=== PATIENT | male | born 1945 | race Caucasian/White ===

== ENCOUNTER 2016-10-03 16:37 | Inpatient (IN) | payer OTHER ==
[2016-10-03] MEDS ORDERED: NS 1,000 ML IV ONE (17:18)
[2016-10-03] MEDS ORDERED: ONDANSETRON 4 MG/2 ML VIAL IVP ONE (17:18)
--- NOTE | 2016-10-03 17:32 | CPEKG ---
Heart Rate: 58 RR Interval: 1034 P-R Interval: 144 QRSD Interval: 86 QT Interval: 428 QTC Interval: 421 P Black[place]: 69 QRS [place]: 2 T Wave [place]: 31 EKG Severity - NORMAL ECG - EKG Impression: SINUS RHYTHM Electronically Signed By: Alireza Stephens 03-Oct-2016 22:18:22
--- NOTE | 2016-10-03 17:33 | EDPHY ---
General Narrative: CHIEF COMPLAINT: Abdominal pain, diarrhea HISTORY OF PRESENT ILLNESS: patient has had ongoing abdominal pain that has worsened over the past 3 days. It is in the upper quadrants and epigastrium. It is moderate to severe. Intolerable today, thus he is here. Associated with several bouts of diarrhea daily. He has been evaluated for this including a negative C difficile study less than 10 days ago. He has had dry heaving today but no bloody stools or emesis. No fever or chills. No chest pain or shortness of breath. The pain is worse with movement, Valsalva or palpation. It radiates to the back. minimal improvement with [id number] anti- inflammatories. History significant for gastric adenocarcinoma status post partial gastrectomy so years ago. 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 He is also on chemotherapy until July. He has been very weak over the past few months and not gain any weight as well. 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 Frail Head: normocephalic, atraumatic Eyes: Pupils equal and round, no conjunctival pallor or injection ENT, Mouth: Mucous membranes moist. Uvula midline. No erythema or edema. Neck: Normal inspection, supple, non-tender Respiratory: Lungs are clear to auscultation . No wheezing, rhonchi crackles Cardiovascular: Left-sided chest port palpable.Regular rate and rhythm. No murmur. Pulses intact distally. Gastrointestinal: Abdomen is soft . Moderately tender in both upper quadrants. No guarding. No tympany. No rigidity. No CVA tenderness. Back: non-tender, no bony abnormalities Neurological: A&O, nonfocal, normal gait Skin: Warm and dry, no rash Extremities: Nontender, no pedal edema Psychiatric: Mood and affect normal DIFFERENTIAL DIAGNOSES: Including but not limited to Gastritis, peptic ulcer, perforated duodenal ulcer, enteritis, colitis, pancreatitis, pseudomembranous colitis MDM: 5:40pm Bilateral upper quadrant abdominal pain. Patient has a very extensive and complicated history including gastroesophageal carcinoma and adenocarcinoma of the small intestine. He is status post partial gastrectomy and partial small bowel obstruction. He has normal vital signs but moderately tender in this area. Laboratory studies are pending at this time. We discussed CT scan but I am being cautious with this given his history and frequencies CT scans that he has had. They are comfortable with this plan at this time. 7:05 p.m. laboratory studies are within acceptable limits for this patient. His abnormal liver function tests are actually improved from previous. He also has known fatty liver disease. Abdominal exam still remains moderately painful in the upper abdomen. This pain is improved with pain medication here. After lengthy discussion we have decided together to obtain a CT scan of the abdomen and pelvis given his complex history. I do feel this is reasonable given his severity of pain and is complex abdominal history. CT scan has been ordered and he is in no acute distress 8:45 p.m. notified by radiologist Dr. Javed of the CT scan finding. This is consistent with small-bowel obstruction. There is an area of change in the right side of the abdomen in the previous surgical region. I discussed this with the patient. His former surgeon is Dr. Sofya Mora is no longer with the practice. I will contact [address] Welch for consultation. Plan for admission with hospitalist versus surgeon at this time. 9:10 p.m. I have discussed the case with the hospitalist and he will admit the patient to his service. We are still attempting to contact General surgery for consultation. 9:45 p.m. I have discussed the case with general surgeon Dr. Pickering. He recommends that we keep the patient NPO, provide IV fluid resuscitation, refrain from giving Lovenox and he will provide consultation in the morning. Should the scenario change, hospitalist can consult him overnight for patient to be seen if needed. I discussed this with the patient he is comfortable with this plan. He still tolerating the pain and not actively vomiting. I have not ordered an NG tube and Dr. Pickering is comfortable with this thus far. EKG interpreted by: Dr. Stephens rate is 58 beats per minute. Normal sinus rhythm. No ST depression or elevation. No T-wave inversion of the AVR. No ectopy conduction delay. Interpretation: Normal sinus rhythm ED Precautions: Worsening pain. Fever. Bloody stools. Bloody emesis. Constipation or diarrhea. SUPERVISION: This patient was independently evaluated without the aide of supervising physician. Case discussed with Dr. Kat - History Smoking Status: Never smoked - Objective Vital Signs: Initial Vital Signs Temperature (C) 99.0 F 10/03/16 16:47 Heart Rate 62 10/03/16 16:47 Respiratory Rate 16 10/03/16 16:47 Blood Pressure 135/85 H 10/03/16 16:47 O2 Sat (%) 96 10/03/16 16:47 O2 Delivery Mode Nasal Cannula O2 (L/minute) 2 Allergies/Adverse Reactions: gluten Allergy (Verified 04/28/16 16:50) Penicillins Allergy (Verified 04/28/16 16:50) wheat Allergy (Verified 04/28/16 16:50) Home Medications: Medication Instructions Recorded Aspirin [Aspirin 81mg (*)] 81 mg PO DAILY 09/19/15 Famotidine [Pepcid 20 MG (*)] 20 mg PO BID 09/19/15 Multivitamins [Multivitamin (*)] 1 each PO DAILY 09/19/15 [place]-3 Fatty Acids [Fish Oil 1000 1,000 mg PO DAILY 09/19/15 mg (*)] Simvastatin 10 mg PO DAILY18 09/19/15 Herbals/Supplements -Info Only 1 ea PO DAILY 12/11/15 Acetaminophen [Tylenol 325mg (*)] 650 mg PO Q4 PRN #30 tab 12/24/15 Loperamide HCl [Imodium 2 mg (*)] 2 mg PO TID PRN 10/03/16 Laboratory Results: Laboratory Results 10/03/16 18:00 10/03/16 18:00 10/03/16 10/03/16 10/03/16 18:04 18:00 18:00 WBC RBC Hgb POC Hgb 14.3 gm/dL L gm/dL (14.5-17.3) Hct POC Hct 42 % L % (42.8-50.6) MCV MCH MCHC RDW Plt Count MPV Neut % (Auto) Lymph % (Auto) [place] % (Auto) Eos % (Auto) Baso % (Auto) Nucleat RBC Rel Count Absolute Neuts (auto) Absolute Lymphs (auto) Absolute Monos (auto) Absolute Eos (auto) Absolute Basos (auto) Absolute Nucleated RBC Immature Gran % Immature Gran # PT INR APTT VBG Lactic Acid 1.3 mmol/L mmol/L (0.7-2.1) POC Sodium 147 mEq/L H mEq/L (134-144) Sodium 141 mEq/L mEq/L (134-144) POC Potassium 3.7 mEq/L mEq/L (3.3-5.0) Potassium 3.9 mEq/L mEq/L (3.5-5.2) POC Chloride 111 mEq/L H mEq/L (96-108) Chloride 111 mEq/L H mEq/L (97-110) Carbon Dioxide 19 mEq/l L mEq/l (22-31) Anion Gap 11 mEq/L mEq/L (8-16) POC BUN 16 mg/dL mg/dL (7-23) BUN 16 mg/dL mg/dL (7-23) Creatinine 0.7 mg/dL mg/dL (0.7-1.3) POC Creatinine 0.6 mg/dL L mg/dL (0.8-1.5) Estimated GFR > 60 Glucose 78 mg/dL mg/dL (70-100) POC Glucose 79 mg/dL mg/dL (70-100) Calcium 8.5 mg/dL mg/dL (8.5-10.4) Total Bilirubin 0.5 mg/dL mg/dL (0.1-1.4) Conjugated Bilirubin 0.4 mg/dL mg/dL (0.0-0.5) Unconjugated Bilirubin 0.1 mg/dL mg/dL (0.0-1.1) AST 200 IU/L H IU/L (17-59) ALT 65 IU/L IU/L (21-72) Alkaline Phosphatase 130 IU/L H IU/L (38-126) Troponin I < 0.012 ng/mL ng/mL (0-0.034) Total Protein 7.4 g/dL g/dL (6.3-8.2) Albumin 3.2 g/dL L g/dL (3.5-5.0) Lipase < 10.0 IU/L L IU/L (23-300) Urine Color Urine Appearance Urine pH Ur Specific [place] Urine Protein Urine Ketones Urine Blood Urine Nitrate Urine Bilirubin Urine Urobilinogen Ur Leukocyte Esterase Ur Culture Indicated? Urine Glucose 10/03/16 10/03/16 10/03/16 18:00 18:00 17:20 WBC 6.46 10^3/uL 10^3/uL (3.80-9.50) RBC 3.63 10^6/uL L 10^6/uL (4.40-6.38) Hgb 12.6 g/dL L g/dL (13.7-17.5) POC Hgb Hct 36.9 % L % (40.0-51.0) POC Hct MCV 101.7 fL H fL (81.5-99.8) MCH 34.7 pg H pg (27.9-34.1) MCHC 34.1 g/dL g/dL (32.4-36.7) RDW 13.1 % % (11.5-15.2) Plt Count 160 10^3/uL 10^3/uL (150-400) MPV 10.5 fL fL (8.7-11.7) Neut % (Auto) 69.8 % % (39.3-74.2) Lymph % (Auto) 16.4 % % (15.0-45.0) [place] % (Auto) 12.2 % % (4.5-13.0) Eos % (Auto) 0.8 % % (0.6-7.6) Baso % (Auto) 0.6 % % (0.3-1.7) Nucleat RBC Rel Count 0.0 % % (0.0-0.2) Absolute Neuts (auto) 4.51 10^3/uL 10^3/uL (1.70-6.50) Absolute Lymphs (auto) 1.06 10^3/uL 10^3/uL (1.00-3.00) Absolute Monos (auto) 0.79 10^3/uL 10^3/uL (0.30-0.80) Absolute Eos (auto) 0.05 10^3/uL 10^3/uL (0.03-0.40) Absolute Basos (auto) 0.04 10^3/uL 10^3/uL (0.02-0.10) Absolute Nucleated RBC 0.00 10^3/uL 10^3/uL (0-0.01) Immature Gran % 0.2 % % (0.0-1.1) Immature Gran # 0.01 10^3/uL 10^3/uL (0.00-0.10) PT 14.8 SEC SEC (12.0-15.0) INR 1.16 (0.83-1.16) APTT 26.8 SEC SEC (23.0-38.0) VBG Lactic Acid POC Sodium Sodium POC Potassium Potassium POC Chloride Chloride Carbon Dioxide Anion Gap POC BUN BUN Creatinine POC Creatinine Estimated GFR Glucose POC Glucose Calcium Total Bilirubin Conjugated Bilirubin Unconjugated Bilirubin AST ALT Alkaline Phosphatase Troponin I Total Protein Albumin Lipase Urine Color YELLOW Urine Appearance HAZY Urine pH 5.0 (5.0-7.5) Ur Specific [place] 1.028 (1.002-1.030) Urine Protein NEGATIVE (NEGATIVE) Urine Ketones TRACE H (NEGATIVE) Urine Blood NEGATIVE (NEGATIVE) Urine Nitrate NEGATIVE (NEGATIVE) Urine Bilirubin NEGATIVE (NEGATIVE) Urine Urobilinogen NEGATIVE EU EU (0.2-1.0) Ur Leukocyte Esterase NEGATIVE (NEGATIVE) Ur Culture Indicated? NOT INDICATED (NI) Urine Glucose NEGATIVE (NEGATIVE) Medications Given: Discontinued Medications Sodium Chloride (Ns) 1,000 mls @ 0 mls/hr IV ONCE ONE PRN Reason: Wide Open Stop: 10/03/16 17:19 Last Admin: 10/03/16 17:40 Dose: 1,000 mls Morphine Sulfate (Morphine) 6 mg IVP EDNOW ONE Stop: 10/03/16 17:19 Last Admin: 10/03/16 17:40 Dose: 6 mg Ondansetron HCl (Zofran) 4 mg IVP EDNOW ONE Stop: 10/03/16 17:19 Last Admin: 10/03/16 17:40 Dose: 4 mg Point of Care Test Results: 10/03/16 18:04 POC Sodium 147 H POC Potassium 3.7 POC Chloride 111 H POC BUN 16 POC Creatinine 0.6 L POC Glucose 79 Departure - Departure Disposition: [facility] In[facility] Acute Clinical Impression: Acute abdominal pain, Small bowel obstruction, Gastric adenocarcinoma Condition: Good Referrals: Bartolo Roberts MD [Primary Care Provider] - As per Instructions
[2016-10-03 17:34] LABS: COLOR YELLOW; LEUKOCYTE ESTERASE,URINE NEGATIVE (NEGATIVE); NITRITE,URINE NEGATIVE (NEGATIVE)
[2016-10-03] MEDS ORDERED: IOPAMIDOL (ISOVUE-300) 100 ML BTL IV ONE ×2 (17:54→18:05)
[2016-10-03 18:14] LABS: % IMMATURE GRANULYOCYTES 0.2 % (0.0-1.1); ABSOLUTE IMMATURE GRANULOCYTES 0.01 10^3/uL (0.00-0.10); ADD DIFF? NO; ADD MORPH? NO; ADD SCAN? NO; ATYPICAL LYMPHOCYTE FLAG 30 (0-99); FRAGMENT RBC FLAG 0 (0-99); HEMATOCRIT 36.9 % (40.0-51.0); HEMOGLOBIN 12.6 g/dL (13.7-17.5); LEFT SHIFT FLG 0 (0-99); LIPEMIA HEMOLYSIS FLAG 90 (0-99); MEAN CELL HEMOGLOBIN 34.7 pg (27.9-34.1); MEAN CELL HEMOGLOBIN CONCENTR. 34.1 g/dL (32.4-36.7); MEAN CELL VOLUME 101.7 fL (81.5-99.8); MEAN PLATELET VOLUME 10.5 fL (8.7-11.7); PLATELET CLUMPS FLAG 0 (0-99); PLATELET COUNT 160 10^3/uL (150-400); RED BLOOD CELL COUNT 3.63 10^6/uL (4.40-6.38); RED CELL DISTRIBUTION WIDTH 13.1 % (11.5-15.2)
[2016-10-03 18:22] LABS: INR 1.16 (0.83-1.16); PROTIME(PATIENT) 14.8 SEC (12.0-15.0)
[2016-10-03 18:24] LABS: APTT 26.8 SEC (23.0-38.0)
[2016-10-03 18:35] LABS: ALANINE AMINOTRANSFERASE 65 IU/L (21-72); ALBUMIN 3.2 g/dL (3.5-5.0); ALKALINE PHOSPHATASE 130 IU/L (38-126); ANION GAP 11 mEq/L (8-16); ASPARTATE AMINOTRANSFERASE 200 IU/L (17-59); BILIRUBIN,TOTAL 0.5 mg/dL (0.1-1.4); BILIRUBIN-CONJUGATED 0.4 mg/dL (0.0-0.5); BILIRUBIN-UNCONJUGATED 0.1 mg/dL (0.0-1.1); CALCIUM 8.5 mg/dL (8.5-10.4); CARBON DIOXIDE 19 mEq/l (22-31); CHLORIDE 111 mEq/L (97-110); CREATININE 0.7 mg/dL (0.7-1.3); GLOMERULAR FILTRATION RATE > 60; GLUCOSE 78 mg/dL (70-100); POTASSIUM 3.9 mEq/L (3.5-5.2); SODIUM 141 mEq/L (134-144); TOTAL PROTEIN 7.4 g/dL (6.3-8.2)
[2016-10-03 18:46] LABS: TROPONIN I < 0.012 ng/mL (0-0.034)
[2016-10-03] MEDS ORDERED: HYDROmorphONE/DILAUDID 1 MG/ML SYR ONE (21:15)
[2016-10-03] MEDS ORDERED: HYDROmorphONE/DILAUDID 1 MG/ML SYR IVP ONE (21:19)
[2016-10-03] MEDS: HYDROmorphONE/DILAUDID 1 MG/ML SYR IVP PRN (23:59)
[2016-10-03] MEDS: NS 1,000 ML IV SCH (23:59)
--- NOTE | 2016-10-04 01:59 | PDGENHP ---
History and Physical - Chief Complaint abdominal pain - History of Present Illness Patient is a 71-year-old male with a history of gastric adenocarcinoma, as well as adenocarcinoma of the small bowel (recently completed a chemotherapy regimen in 07/2016), celiac's disease, h/o HBV, CAD (PCI in 2011) and h/o portal vein thrombosis (no longer on anticoagulation) who presents to the ED with complaint of acute abdominal pain. Patient states pain started about 3 days ago , is located in his epigastric region. He reports pain is intermittent ranging from 3/10 intensity to 9 to 10/10 at its worse. Pain does not radiate into his chest, is associated with nausea and dry heaving, but no vomiting. He also reports subjective chills and cold sweats, but no obvious fever. Pain was significantly worse the night prior to presentation, when he awoke in the morning he called his oncologist's office and was recommended that he come to the ED for further evaluation. Of note, since July patient has had chronic diarrhea about 4-5 BMs daily. He has continued to have these bowel movements during this acute pain episode, however they have slightly decreased in frequency to about 3 BMs daily. He denies any associated shortness of breath, headache, dizziness, chest pain, palpitations or urinary complaints. Arrival to the ED patient was afebrile and hemodynamically stable. Labs were unremarkable, including CBC and BMP. CT abdomen and pelvis was then obtained and revealed likely SBO at site of previous abdominal surgeries. Surgery was contacted by the ED, and patient was admitted to the hospitalist service for further management. History Information - Allergies/Home Medication List Allergies/Adverse Reactions: gluten Allergy (Verified 04/28/16 16:50) Penicillins Allergy (Verified 04/28/16 16:50) wheat Allergy (Verified 04/28/16 16:50) Home Medications: Aspirin [Aspirin 81mg (*)] 81 mg PO DAILY 09/19/15 [Last Taken 10/03/16] Famotidine [Pepcid 20 MG (*)] 20 mg PO BID 09/19/15 [Last Taken 10/03/16] Multivitamins [Multivitamin (*)] 1 each PO DAILY 09/19/15 [Last Taken 10/03/16] [place]-3 Fatty Acids [Fish Oil 1000 mg (*)] 1,000 mg PO DAILY 09/19/15 [Last Taken 10/03/16] Simvastatin 10 mg PO HS 09/19/15 [Last Taken 10/02/16] Herbals/Supplements -Info Only 1 ea PO DAILY 12/11/15 [Last Taken 10/03/16] Loperamide HCl [Imodium 2 mg (*)] 2 mg PO TID PRN 10/03/16 [Last Taken 10/02/16] I have personally reviewed and updated: family history, medical history, social history, surgical history - Past Medical History Additional medical history: Gastric adenocarcinoma (dx 2011, s/p resection, in remission). 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 celiac disease. h/o portal vein thrombosis 09/2015. h/o c diff colitis. Hepatitis b virus. CAD s/p HI in 12/2011 - Surgical History Additional surgical history: cholecystectomy. [place] II gastric resection. Small bowel resection. hernia repair. b/l cataract repair - Family History Additional family history: F: lung ca. M: DM2 - Social History Smoking Status: Never smoked Alcohol Use: Occasionally (1-2 glasses of wine nightly) Drug Use: None Additional social history: Patient lives with his , is independent in all ADLs. Review of Systems ROS: 10pt was reviewed & negative except for what was stated in HPI & below Physical Exam Temp Pulse Resp BP Pulse Ox 36.8 C 57 L 16 135/82 H 92 10/03/16 22:21 10/03/16 22:21 10/03/16 22:21 10/03/16 22:21 10/03/16 22:21 Constitutional: no apparent distress, appears nourished, not in pain Eyes: PERRL, anicteric sclera, EOMI Ears, Nose, Mouth, Throat: moist mucous membranes, hearing normal, ears appear normal, no oral mucosal ulcers Cardiovascular: regular rate and rhythym, no murmur, rub, or gallop, pulses symmetric bilaterally, No JVD, No edema Peripheral Pulses: 2+: dorsalis-pedis (R), dorsalis-pedis (L) Respiratory: no respiratory distress, no rales or rhonchi, clear to auscultation Gastrointestinal: normoactive bowel sounds, no palpable masses, tenderness ( epigastric), guarding, No ascites, No rebound, No distension Genitourinary: no bladder fullness, no bladder tenderness Skin: warm, normal color, no rashes or abrasions, no fluctuance, no induration, No mottled Musculoskeletal: full muscle strength, no muscle tenderness, normal joint ROM, no joint effusions Neurologic: AAOx3, sensation intact bilaterally, CN II-XII Intact, No weakness, No numbness, No facial droop Psychiatric: interacting appropriately, not anxious, not encephalopathic, thought process linear Lab Data & Imaging Review 10/03/16 18:00 10/03/16 18:00 WBC 6.46 10^3/uL (3.80-9.50) 10/03/16 18:00 RBC 3.63 10^6/uL (4.40-6.38) L 10/03/16 18:00 Hgb 12.6 g/dL (13.7-17.5) L 10/03/16 18:00 POC Hgb 14.3 gm/dL (14.5-17.3) L 10/03/16 18:04 Hct 36.9 % (40.0-51.0) L 10/03/16 18:00 POC Hct 42 % (42.8-50.6) L 10/03/16 18:04 MCV 101.7 fL (81.5-99.8) H 10/03/16 18:00 MCH 34.7 pg (27.9-34.1) H 10/03/16 18:00 MCHC 34.1 g/dL (32.4-36.7) 10/03/16 18:00 RDW 13.1 % (11.5-15.2) 10/03/16 18:00 Plt Count 160 10^3/uL (150-400) 10/03/16 18:00 MPV 10.5 fL (8.7-11.7) 10/03/16 18:00 Neut % (Auto) 69.8 % (39.3-74.2) 10/03/16 18:00 Lymph % (Auto) 16.4 % (15.0-45.0) 10/03/16 18:00 [place] % (Auto) 12.2 % (4.5-13.0) 10/03/16 18:00 Eos % (Auto) 0.8 % (0.6-7.6) 10/03/16 18:00 Baso % (Auto) 0.6 % (0.3-1.7) 10/03/16 18:00 Nucleat RBC Rel Count 0.0 % (0.0-0.2) 10/03/16 18:00 Absolute Neuts (auto) 4.51 10^3/uL (1.70-6.50) 10/03/16 18:00 Absolute Lymphs (auto) 1.06 10^3/uL (1.00-3.00) 10/03/16 18:00 Absolute Monos (auto) 0.79 10^3/uL (0.30-0.80) 10/03/16 18:00 Absolute Eos (auto) 0.05 10^3/uL (0.03-0.40) 10/03/16 18:00 Absolute Basos (auto) 0.04 10^3/uL (0.02-0.10) 10/03/16 18:00 Absolute Nucleated RBC 0.00 10^3/uL (0-0.01) 10/03/16 18:00 Immature Gran % 0.2 % (0.0-1.1) 10/03/16 18:00 Immature Gran # 0.01 10^3/uL (0.00-0.10) 10/03/16 18:00 PT 14.8 SEC (12.0-15.0) 10/03/16 18:00 INR 1.16 (0.83-1.16) 10/03/16 18:00 APTT 26.8 SEC (23.0-38.0) 10/03/16 18:00 VBG Lactic Acid 1.3 mmol/L (0.7-2.1) 10/03/16 18:00 POC Sodium 147 mEq/L (134-144) H 10/03/16 18:04 Sodium 141 mEq/L (134-144) 10/03/16 18:00 POC Potassium 3.7 mEq/L (3.3-5.0) 10/03/16 18:04 Potassium 3.9 mEq/L (3.5-5.2) 10/03/16 18:00 POC Chloride 111 mEq/L (96-108) H 10/03/16 18:04 Chloride 111 mEq/L (97-110) H 10/03/16 18:00 Carbon Dioxide 19 mEq/l (22-31) L 10/03/16 18:00 Anion Gap 11 mEq/L (8-16) 10/03/16 18:00 POC BUN 16 mg/dL (7-23) 10/03/16 18:04 BUN 16 mg/dL (7-23) 10/03/16 18:00 Creatinine 0.7 mg/dL (0.7-1.3) 10/03/16 18:00 POC Creatinine 0.6 mg/dL (0.8-1.5) L 10/03/16 18:04 Estimated GFR > 60 10/03/16 18:00 Glucose 78 mg/dL (70-100) 10/03/16 18:00 POC Glucose 79 mg/dL (70-100) 10/03/16 18:04 Calcium 8.5 mg/dL (8.5-10.4) 10/03/16 18:00 Total Bilirubin 0.5 mg/dL (0.1-1.4) 10/03/16 18:00 Conjugated Bilirubin 0.4 mg/dL (0.0-0.5) 10/03/16 18:00 Unconjugated Bilirubin 0.1 mg/dL (0.0-1.1) 10/03/16 18:00 AST 200 IU/L (17-59) H 10/03/16 18:00 ALT 65 IU/L (21-72) 10/03/16 18:00 Alkaline Phosphatase 130 IU/L (38-126) H 10/03/16 18:00 Troponin I < 0.012 ng/mL (0-0.034) 10/03/16 18:00 Total Protein 7.4 g/dL (6.3-8.2) 10/03/16 18:00 Albumin 3.2 g/dL (3.5-5.0) L 10/03/16 18:00 Lipase < 10.0 IU/L (23-300) L 10/03/16 18:00 Urine Color YELLOW 10/03/16 17:20 Urine Appearance HAZY 10/03/16 17:20 Urine pH 5.0 (5.0-7.5) 10/03/16 17:20 Ur Specific [place] 1.028 (1.002-1.030) 10/03/16 17:20 Urine Protein NEGATIVE (NEGATIVE) 10/03/16 17:20 Urine Ketones TRACE (NEGATIVE) H 10/03/16 17:20 Urine Blood NEGATIVE (NEGATIVE) 10/03/16 17:20 Urine Nitrate NEGATIVE (NEGATIVE) 10/03/16 17:20 Urine Bilirubin NEGATIVE (NEGATIVE) 10/03/16 17:20 Urine Urobilinogen NEGATIVE EU (0.2-1.0) 10/03/16 17:20 Ur Leukocyte Esterase NEGATIVE (NEGATIVE) 10/03/16 17:20 Ur Culture Indicated? NOT INDICATED (NI) 10/03/16 17:20 Urine Glucose NEGATIVE (NEGATIVE) 10/03/16 17:20 Visualized and Interpreted imaging results: Yes Interpretation: CT abd/pelvis: multiple loops of small and large bowel, with ? mass-like appearance in R mid abdomen Visualized and Interpreted EKG results: Yes EKG Interpretation: Positive for: normal sinsus rhythm Assessment & Plan Assessment: Patient is a 71-year-old male with history of small-bowel adenocarcinoma, celiac disease who presented to the ED with complaint of 3 days of intense abdominal pain and nausea. ED workup reveals acute small bowel obstruction. Plan: # acute small bowel obstruction Patient main complaint is abdominal pain, has mild nausea and no vomiting. As remained stable without NG tube decompression. Surgery consultation regarding CT abd findings are pending. Will maintain NPO status, IVF hydration and cont pain control as needed. If any change in abdominal status/exam will contact general surgery for more urgent evaluation. # chronic diarrhea Patient reports chronic diarrhea since 07/2016, of unclear etiology per patient. Possibly related to celiac's disease vs bowel resection vs chemotherapy side effect. He had a negative GI pathogen panel on 09/22. There is no clinical indication to repeat GI pathogen study at this time. Will cont to monitor output , electrolytes. Hold immodium in setting of bowel obstruction. # adenocarcinoma of small bowel Patient has undergone small bowel resection and completed a chemotherapy regimen in 07/2016. CT abd/pelvis reports ? mass-like structure in the R mid- abdomen at site of previous resection. Will f/u general surgery's recommendation regarding this structure. LFTs/albumin appear to be at patient's baseline. # h/o CAD Cont home aspirin and statin. # celiac's disease When diet is resumed, will order celiac diet. # dispo: admit to inpatient service for likely > 2 [place] stay # gen: NPO DVT ppx: lovenox, if no surgical intervention planned Full code
[2016-10-04] MEDS: HYDROmorphONE/DILAUDID 1 MG/ML SYR IVP PRN ×5 (06:31→22:19)
[2016-10-04 07:07] LABS: ADD DIFF? NO; ADD MORPH? NO; ADD SCAN? NO; ATYPICAL LYMPHOCYTE FLAG 50 (0-99); FRAGMENT RBC FLAG 0 (0-99); HEMATOCRIT 35.4 % (40.0-51.0); HEMOGLOBIN 12.1 g/dL (13.7-17.5); LEFT SHIFT FLG 0 (0-99); LIPEMIA HEMOLYSIS FLAG 90 (0-99); MEAN CELL HEMOGLOBIN 34.5 pg (27.9-34.1); MEAN CELL HEMOGLOBIN CONCENTR. 34.2 g/dL (32.4-36.7); MEAN CELL VOLUME 100.9 fL (81.5-99.8); MEAN PLATELET VOLUME 10.7 fL (8.7-11.7); PLATELET CLUMPS FLAG 0 (0-99); PLATELET COUNT 148 10^3/uL (150-400); RED BLOOD CELL COUNT 3.51 10^6/uL (4.40-6.38); RED CELL DISTRIBUTION WIDTH 13.2 % (11.5-15.2)
[2016-10-04 08:19] LABS: ALANINE AMINOTRANSFERASE 111 IU/L (21-72); ALBUMIN 2.9 g/dL (3.5-5.0); ALKALINE PHOSPHATASE 180 IU/L (38-126); ANION GAP 6 mEq/L (8-16); ASPARTATE AMINOTRANSFERASE 337 IU/L (17-59); BILIRUBIN,TOTAL 0.8 mg/dL (0.1-1.4); CALCIUM 8.5 mg/dL (8.5-10.4); CARBON DIOXIDE 23 mEq/l (22-31); CHLORIDE 113 mEq/L (97-110); CREATININE 0.7 mg/dL (0.7-1.3); GLOMERULAR FILTRATION RATE > 60; GLUCOSE 76 mg/dL (70-100); MAGNESIUM 1.5 mg/dL (1.6-2.3); POTASSIUM 3.6 mEq/L (3.5-5.2); SODIUM 142 mEq/L (134-144); TOTAL PROTEIN 6.6 g/dL (6.3-8.2)
[2016-10-04] MEDS: ONDANSETRON 4 MG/2 ML VIAL IVP PRN ×3 (09:44→17:42)
[2016-10-04] MEDS: NS 1,000 ML IV SCH ×3 (09:51→20:00)
--- NOTE | 2016-10-04 10:01 | PDCONSULT ---
[employer] Note: #[id number] Surgical Consult Dictated S MD Ladan, FACS
--- NOTE | 2016-10-04 11:01 | GDS ---
[f rep st] Surgery Consult CHIEF COMPLAINT: Abdominal pain. HISTORY OF PRESENT ILLNESS: The patient is a 71-year-old male, who presents with 3-day history of sharp, crampy abdominal pain. He had a prodrome of approximately 3-4 weeks of diarrhea, 3-4 times per day, which had persisted during this episode of abdominal pain. He contacted his physician's yesterday and was advised to come to the [facility], [place] for emergency evaluation, and was admitted to the hospitalist service. Surgical consultation was requested after a CT scan showed a mass in the abdomen. His past medical history was carefully reviewed and discussed with his oncologist, Dr. Marija Connolly. He underwent resection of a gastric adenocarcinoma while living in [place] in 2011, and was treated postoperatively with chemotherapy and radiation therapy. He presented to [facility] last spring and underwent emergency open cholecystectomy by Dr. Vinny Cuevas for cholangitis and a gangrenous gallbladder. The patient had a prolonged recovery thereafter, and was identified as having a portal vein thrombosis. Ultimately recovered from that and was readmitted in December of 2015 for abdominal pain and findings of small bowel obstruction on CT. At that time, he underwent resection of the terminal ileum and cecum by Dr. 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 The patient was started on FOLFOX therapy, which he continued until July of this year, and completed therapy. He had a CT scan performed on September 14, which was reported as showing no evidence of tumor. The patient reports the pains to be fairly consistent and sharp, stabbing, intermittent in nature. Associated with nausea and some dry heaves. He has had no emesis since arriving at the hospital. He has continued to have occasional loose stools. He has had no formed bowel movements for several weeks. His constitutional symptoms include a 20 pounds weight loss over the past 9 months. He denies any fever, chills, chest pain, shortness of breath, dysuria, hematuria, melena, hematochezia. He has been seen in outpatient consultation by Dr. Hema Stover, and has a history of gluten and wheat intolerance. as well as penicillin allergy. PAST MEDICAL HISTORY/SURGICAL HISTORY: Is as reviewed above, a previous partial gastrectomy in 2012 for adenocarcinoma, open cholecystectomy in [address] Cuevas for acute cholangitis and resection of the terminal ileum and ileocolostomy by Dr. Sofya Mora in December of 2015, followed by chemotherapy under the care of Dr. Marija Connolly until July of 2016. His primary care physician is Dr. Rolly Roberts. MEDICATIONS: His current medications include p.r.n. hydromorphone 0.5 mg IV q.1 hour p.r.n. pain, Zofran 4 mg q.4 hours p.r.n. nausea. He is receiving intravenous normal saline. ALLERGIES: Gluten, wheat and penicillin. Additional home medications include aspirin 81 mg p.o. daily, taken up until 2 days ago. Pepcid 20 mg p.o. b.i.d., multivitamins 1 p.o. daily, omega-3 fatty acids fish oil 1000 mg p.o. daily, simvastatin 10 mg p.o. q.h.s., herbal supplements and p.r.n. Imodium. SOCIAL HISTORY: Patient is , and retired, working in law and finance. FAMILY HISTORY: The patient's father had lung cancer. Mother had type 2 diabetes mellitus. The patient is a lifelong nonsmoker. Drinks an occasional glass of wine. REVIEW OF SYSTEMS: Pertinent negatives are per history of present illness. PHYSICAL EXAMINATION: GENERAL: Reveals an articulate gentleman, in no acute distress. VITAL SIGNS: Blood pressure 131/78, pulse 58, respiratory rate 16, O2 sat is 97, temperature is 36.3. HEENT: There is no scleral icterus. NECK: Supple without adenopathy. CHEST: Clear. HEART: Regular in rate and rhythm. ABDOMEN: Scaphoid, soft, with a well-healed midline, as well as right upper quadrant incision, without hernias. The liver is not enlarged, neither is the spleen. There is a mass effect in the right upper quadrant, measuring approximately 6 x 8 cm, somewhat fixed with mild tenderness to deep palpation. The abdomen, however, is otherwise soft and nontender to palpation and percussion. There is no inguinal mass, adenopathy or hernia. RECTAL: Was not repeated. NEUROLOGIC: Patient is oriented x3. Has no focal motor or sensory deficits. LABORATORY STUDIES: WBC is 4.1, hemoglobin 12.1, hematocrit 35.4, platelets are 148,000. PT is 14.8, INR 1.16, PTT 26.8. Sodium 142, potassium 3.6, chloride 113, BUN was 13, creatinine 0.7, magnesium 1.5. AST 337, ALT 111, alk phos 180. Albumin was 2.9, at admission it was 3.2. Lipase was normal. Urinalysis was negative, other than trace ketones. CT scan was reviewed with Dr. Downing, and in comparison to the study performed September 14 at [facility]. The patient's gallbladder was surgically absent with clips in the area of the cystic duct and cystic artery. There is no dilatation of the extrahepatic biliary ductal system, and the pancreas appeared normal. There was evidence of prior gastrectomy. In the right upper quadrant, there is a mass effect involving loops of small bowel and large bowel with mesenteric thickening, and interloop tissue planes that are obliterated consistent with a phlegmonous mass, and there was no free fluid. No air fluid levels. Proximal small bowel is dilated, however, there is gas and stool in the colon as well. Surgical clips are present within this mass affect. The mass is close to the duodenum, if not involving it, near the apex, and the medial posterior aspect is very close to the vena cava and renal hilum. It extends into the subhepatic space, at the site of prior cholecystectomy and below that. Previous studies on September 14 showed an earlier version of this mesenteric and bowel thickening, which at the time was, I do not believe, recognized to be significant. IMPRESSION: 1. Abdominal pain consistent with partial small bowel obstruction. Most likely explanation is recurrence of his adenocarcinoma. Other etiologies would include inflammatory bowel disease, C difficile colitis, granulomatous conditions, these would appear to be less likely given his history. 2. Adenocarcinoma of the stomach, treated with gastrectomy, chemo and radiation in 2011. 3. Adenocarcinoma of the distal small bowel, treated surgically in December of 2015 , followed by 6 months of FOLFOX chemotherapy by Dr. Connolly. 4. History of gluten and wheat intolerance. 5. Status post cholecystectomy for gangrenous cholecystitis, 2015. RECOMMENDATIONS: Discussed the case with Dr. Marija Connolly, and we will request GI consultation from Dr. Hema Stover, or one of his partners for continuity of care, and to consider colonoscopy for possible biopsy and confirmation. I discussed the findings of the CT scan with the patient frankly, and pointed out the clinically worrisome nature of this, if it in fact is proven to be local recurrence. Surgical resection is an option if malignancy is confirmed, but would carry considerable risk, and be not likely a curative procedure, but palliative in nature. /[id number]/MODL MTDD
--- NOTE | 2016-10-04 12:07 | HOSPPROG ---
Hospitalist Progress Note Assessment/Plan: Patient is a 71-year-old male with history of small-bowel adenocarcinoma, celiac disease who presented to the ED with complaint of 3 days of intense abdominal pain and nausea. ED workup reveals acute small bowel obstruction. Plan: # acute small bowel obstruction - conservative mgmt - Surgery to see today - NPO - Has not needed a NGT # adenocarcinoma of small bowel with new right sided mid abdomen mass like stricture -Per Dr. Connolly (Onc), this is likely not recurrence of cancer. Believes that it may be other etiology including possibly Chrohns. The patient follows GI as an outpatient and she has requested a GI consult for possible colonoscopy and biopsy, which I will call today -Surgery to consider resection if cancer recurrence is confirmed # Transaminitis: unclear etiology. Negative Hep Panel previously. -Will await reccs from GI # diarrhea, onset 07/2016 -Possibly related to celiac's disease vs bowel resection vs chemotherapy side effect. -He had a negative GI pathogen panel on 09/22. -Reported low IgA level -Await GI reccs -Hold immodium in setting of bowel obstruction. # h/o CAD Cont home aspirin and statin. # celiac's disease When diet is resumed, will order celiac diet. # dispo: cont inpt NPO DVT ppx: lovenox Full code Subjective: Feels about the same. No emesis, but nausea earlier. New patient encounter Objective: Vital Signs Temp Pulse Resp BP Pulse Ox 36.3 C 58 L 16 131/78 H 97 10/04/16 06:38 10/04/16 06:38 10/04/16 06:38 10/04/16 06:38 10/04/16 06:38 Laboratory Results 10/04/16 06:20 10/04/16 06:20 10/03/16 10/04/16 10/05/16 05:59 05:59 05:59 Intake Total 1000 Balance 1000 PT 14.8 SEC (12.0-15.0) 10/03/16 18:00 INR 1.16 (0.83-1.16) 10/03/16 18:00 - Time Spent With Patient Time Spent with Patient: greater than 35 minutes Time Spent with Patient: Greater than 35 minutes spent on this patients care, greater than 50% of time spent counseling, educating, and coordinating care regarding the above mentioned plan. - Physical Exam Constitutional: no apparent distress, appears nourished, not in pain Eyes: PERRL, anicteric sclera, EOMI Ears, Nose, Mouth, Throat: moist mucous membranes, hearing normal Cardiovascular: regular rate and rhythym, No JVD Respiratory: no respiratory distress, no rales or rhonchi, clear to auscultation Gastrointestinal: distension (generalized, slight), No normoactive bowel sounds , No soft, non-tender abdomen, No guarding, No rebound Genitourinary: no bladder fullness Skin: warm, normal color Musculoskeletal: No generalized weakness Neurologic: AAOx3 Psychiatric: interacting appropriately, not anxious, not encephalopathic ICD10 Worksheet Patient Problems: Problems Problem Status Onset Acute abdominal pain Acute Gastric adenocarcinoma Acute Small bowel obstruction Acute Abdominal pain Acute Acute cholecystitis Acute C. difficile diarrhea Acute 12/10/15 Fever Acute Jaundice Acute Small bowel obstruction due to adhesions Acute
[2016-10-04] MEDS: ENOXAPARIN 40 MG/0.4 ML SYR SC SCH (13:26)
--- NOTE | 2016-10-04 17:17 | GCON ---
[f rep st] CONSULTATION CHIEF COMPLAINT: Questionable small-bowel tumor. HISTORY OF PRESENT ILLNESS: This 71-year-old gentleman has a prior history of gastric adenocarcinom a. He has also had a subsequent adenocarcinoma of the small bowel that was resected, and he underwe nt chemotherapy and finished in July of 2016. He also has a prior history of celiac disease and history of HPV, coronary artery disease, and history of portal vein thrombosis. He had previously b een on anticoagulation, however, is not currently on anticoagulation. He had presented to the emerg ency department complaining of abdominal pain. Pain started about 3 days prior to admission. It wa s located in the epigastric region. Pain was intermittent with increasing episodes of severity. Th e pain was associated with nausea and dry heaves. He had some chills and cold sweats, without fever . He had presented to the emergency department. He had abdominal imaging. CT scan showed multiple dilated loops of large and small bowel. There was a masslike appearance in the right mid abdomen a t the operative site where he had a previous bowel resection in comparison to the study from November of 2015. The patient has been treated medically, n.p.o. Surgery was consulted, had requested an attem pt at colonoscopy to evaluate anastomosis to see if this was a recurrent or new small-bowel tumor. The patient is clinically improved. He has been improved from small-bowel obstruction. He does sti ll have some intermittent crampy abdominal pain. PAST MEDICAL HISTORY: Remarkable for: 1. Gastric adenocarcinoma diagnosed in 2011, status post resection in remission, history of small-b owel adenocarcinoma diagnosed in November of 2015, status post resection and chemotherapy. 2. History of celiac disease. 3. Portal vein thrombosis. 4. History of C difficile colitis. 5. Chronic HPV. 6. Coronary artery disease, status post IN in 2011. PAST SURGICAL HISTORY: Also remarkable for cholecystectomy, Billroth II resection, small-bowel rese ction, herniorrhaphy, bilateral cataract repair. MEDICATIONS: Prior to admission included aspirin 81 mg, famotidine 20 mg, multivitamins, omega-3, s imvastatin, loperamide. FAMILY HISTORY: Remarkable for lung cancer in his father. Mother had diabetes mellitus. Otherwise negative as it pertains to chief complaint. SOCIAL HISTORY: He is a nonsmoker. Drinks occasional glass of wine, 1-2 nightly. No illicit drugs . Patient lives with his , independent in all ADLs, and lives independently. ALLERGIES: Penicillin and "wheat"-celiac disease. REVIEW OF SYSTEMS: Negative for 10 systems other than mentioned in HPI. PHYSICAL EXAM: VITAL SIGNS: 136/73, pulse of 58, respiratory rate 16, 93% sat, 36.7. GENERAL: Ve ry pleasant gentleman, no acute distress. HEENT: Normocephalic, atraumatic. EOMI. NECK: Supple. No cervical adenopathy. No thyromegaly. Mucous membranes moist. LUNGS: Clear. CARDIAC: Xiomara l S1, S2, without murmur. ABDOMEN: Flat, nondistended. Midline scar and upper abdominal scar. Th e patient does have bowel sounds in all 4 quadrants. EXTREMITIES: Without clubbing, cyanosis, erica a. SKIN: Warm and dry, intact. NEURO: Nonfocal. PSYCH: Alert and oriented x3, with normal affe ct. LABORATORY DATA: Hematocrit 35.4, MCV of 100.9. Serum sodium 142, potassium 3.6, chloride of 113, CO2 23. Liver function tests: AST of 337, ALT of 111, alk phos of 180. PT of 14.8, INR of 1.16, P TT of 26.8. CT scan: Multiple dilated loops of large and small bowel. Masslike appearance in the right mid abd omen and postoperative site where small-bowel resection had occurred. Liver: There is heterogeneou s attenuation similar to previous exam. Normal-appearing gallbladder. No intra or extrahepatic barak mindy dilatation. IMPRESSION: A 71-year-old gentleman with history of celiac disease, prior history of gastric adenoc arcinoma, status post Billroth II resection. Patient with more recent small-bowel adenocarcinoma. He is status post resection and chemotherapy. The patient now with a small-bowel obstruction, quest ionable mass at the anastomotic site, raising the question of a recurrence. Dr. Pickering would like to get more information regarding whether or not there is a tumor at the anastomosis prior to consideri ng any repeat surgery. RECOMMENDATIONS: 1. The patient may be difficult to prep for colonoscopy due to partial small-bowel obstruction. Th e patient is starting to have bowel sounds. 2. Clear liquid diet. 3. 2 to 4 L of GoLYTELY p.o. slowly. 4. May also need Fleets enema or tap water enema to help prep for colonoscopy. We will tentatively plan for colonoscopy for tomorrow. However, if he is not ready may need to prep slowly over the ne xt day or 2. We will follow with you. /[id number]/MODL
[2016-10-04] MEDS ORDERED: GOLYTELY 4000 ML BTL PO ONE (17:30)
[2016-10-04] MEDS: PRAVASTATIN SODIUM 20 MG TAB PO SCH (20:00)
[2016-10-04] MEDS ORDERED: NON-FORMULARY NEW DRUG (Simvastatin [Simvastatin] 10 MG) PO SCH (21:00)
[2016-10-05] MEDS: HYDROmorphONE/DILAUDID 1 MG/ML SYR IVP PRN ×3 (03:00→22:53)
[2016-10-05] MEDS: NS 1,000 ML IV SCH ×2 (03:03→19:56)
[2016-10-05 06:00] LABS: ADD DIFF? NO; ADD MORPH? NO; ADD SCAN? NO; ALANINE AMINOTRANSFERASE 91 IU/L (21-72); ALBUMIN 2.7 g/dL (3.5-5.0); ALKALINE PHOSPHATASE 160 IU/L (38-126); ANION GAP 11 mEq/L (8-16); ASPARTATE AMINOTRANSFERASE 243 IU/L (17-59); ATYPICAL LYMPHOCYTE FLAG 80 (0-99); BILIRUBIN,TOTAL 0.7 mg/dL (0.1-1.4); CALCIUM 8.1 mg/dL (8.5-10.4); CARBON DIOXIDE 24 mEq/l (22-31); CHLORIDE 108 mEq/L (97-110); CREATININE 0.7 mg/dL (0.7-1.3); FRAGMENT RBC FLAG 0 (0-99); GLOMERULAR FILTRATION RATE > 60; GLUCOSE 57 mg/dL (70-100); HEMATOCRIT 33.4 % (40.0-51.0); HEMOGLOBIN 10.8 g/dL (13.7-17.5); LEFT SHIFT FLG 0 (0-99); LIPEMIA HEMOLYSIS FLAG 80 (0-99); MEAN CELL HEMOGLOBIN 33.8 pg (27.9-34.1); MEAN CELL HEMOGLOBIN CONCENTR. 32.3 g/dL (32.4-36.7); MEAN CELL VOLUME 104.4 fL (81.5-99.8); MEAN PLATELET VOLUME 10.5 fL (8.7-11.7); PLATELET CLUMPS FLAG 10 (0-99); PLATELET COUNT 136 10^3/uL (150-400); POTASSIUM 3.4 mEq/L (3.5-5.2); RED CELL DISTRIBUTION WIDTH 12.9 % (11.5-15.2); SODIUM 143 mEq/L (134-144)
[2016-10-05] MEDS: ONDANSETRON 4 MG/2 ML VIAL IVP PRN (08:00)
[2016-10-05] MEDS: ENOXAPARIN 40 MG/0.4 ML SYR SC SCH (08:07)
--- NOTE | 2016-10-05 09:30 | HOSPPROG ---
Hospitalist Progress Note Assessment/Plan: 71 yo M w gastric and small bowel adenocarcinoma here w SBO and RUQ mass SBO: appears to have resolved in sense that she is tolerating oral prep mass: colonoscopy w biopsy today CAD: stents remotely on statin restart asa when eating, no procedures planned elevated lft's: transaminases elevated possibly 2/2 hep B outpatient follow up no evidence synthetic dysfunction (normal bili, inr) proph: lmwh after procedures scd's for now code: full dispo: inpatient Subjective: tolerating prep. no vomiting. ct images reviewed/interpreted by me. case d/w dr rowan Objective: Vital Signs Temp Pulse Resp BP Pulse Ox 36.8 C 55 L 18 133/74 H 90 L 10/05/16 07:42 10/05/16 07:42 10/05/16 07:42 10/05/16 07:42 10/05/16 07:42 Laboratory Results 10/05/16 05:23 10/05/16 05:23 10/04/16 10/05/16 10/06/16 05:59 05:59 05:59 Intake Total 1000 2700 Output Total 650 300 Balance 1000 2050 -300 PT 14.8 SEC (12.0-15.0) 10/03/16 18:00 INR 1.16 (0.83-1.16) 10/03/16 18:00 - Physical Exam Constitutional: no apparent distress, appears nourished Eyes: PERRL, anicteric sclera Ears, Nose, Mouth, Throat: moist mucous membranes, hearing normal Cardiovascular: regular rate and rhythym, no murmur, rub, or gallop Respiratory: no respiratory distress, no rales or rhonchi Gastrointestinal: other (normal to hyperactive bowel sounds. not distended, no rebound, no guard) Skin: warm, normal color Musculoskeletal: full muscle strength, no muscle tenderness Neurologic: AAOx3, sensation intact bilaterally Psychiatric: interacting appropriately, not anxious ICD10 Worksheet Patient Problems: Problems Problem Status Onset Acute cholecystitis Acute Fever Acute Jaundice Acute C. difficile diarrhea Acute 12/10/15 Small bowel obstruction due to adhesions Acute Abdominal pain Acute Acute abdominal pain Acute Small bowel obstruction Acute Gastric adenocarcinoma Acute
[2016-10-05] MEDS ORDERED: MIDAZOLAM 2 MG/2 ML VIAL ONE (10:55)
[2016-10-05] MEDS ORDERED: PROPOFOL/EMULSION 500 MG/50 ML BOTTLE IV ONE (10:55)
[2016-10-05] MEDS ORDERED: fentaNYL 100 MCG/2 ML INJ ONE (10:55)
--- NOTE | 2016-10-05 13:08 | GPN ---
[f rep st] PROCEDURE NOTE PROCEDURE: Colonoscopy with biopsy. PREOPERATIVE DIAGNOSES: 1. Bowel obstruction. 2. History of adenocarcinoma of the small bowel. Questionable recurrence at anastomosis. POSTOPERATIVE DIAGNOSIS: Bowel obstruction or obstruction at the surgical anastomosis with edema. Sutures identified. Surgical anastomosis was biopsied. No obvious mass. However, there was an abnormal appearing focal area of mucosa that was biopsied to rule out tumor. INDICATIONS: A 71-year-old gentleman with history of prior gastric carcinoma, prior history of Billroth II gastrectomy. He has a history of celiac disease and he did develop adenocarcinoma of the small bowel. He underwent small bowel resection with anastomosis in 2016. He has recently finished chemotherapy. He presented to the hospital with bowel obstruction. CT scan showed multiple dilated loops of large and small bowel, masslike appearance in the right mid abdomen at the operative site. Patient did improve clinically with medical therapy for bowel obstruction. He was prepped last night with some difficulty but was able to prep to prepare for colonoscopy. Presents today now for colonoscopy. PHYSICAL EXAMINATION: VITAL SIGNS: Stable. LUNGS: Clear. CARDIAC: Normal S1, S2 without murmur. Procedure explained to the patient. Risks and benefits explained to the patient. Informed consent was obtained. PREOPERATIVE MEDICATIONS: IV general anesthesia, propofol per Anesthesia. FINDINGS OF PROCEDURE: Patient placed in left lateral decubitus position. The video colonoscope was advanced to the rectum under direct visualization to the surgical anastomosis. Exam was difficult. There was residual liquid stool throughout the colon. Saw some redundancy of the colon. Abdominal pressure was applied and patient was repositioned in supine position to help negotiate the colonoscope to the surgical anastomosis. Surgical anastomosis identified by finding of suture material. There was edema at the surgical anastomosis. There was a stricture. Unable to pass the colonoscope through the surgical anastomosis into the small bowel. There was a thickened fold at the surgical anastomosis that was biopsied to rule out adenocarcinoma. However, there was no obvious tumor identified. Could not transverse across anastomosis, cannot assess small bowel for tumor. Colonoscope was then withdrawn. IMPRESSION: Bowel obstruction at surgical anastomosis. Evidence of bowel edema and stricture identified. No obvious mass. There was a thickened fold at the surgical anastomosis that was biopsied. Cannot assess distal small bowel for tumor due to stenosis. RECOMMENDATIONS: Clear liquid diet as tolerated. Await biopsy results. Further recommendations per Dr. Korey Pickering. /[id number]/MODL MTDD
[2016-10-05] MEDS: PRAVASTATIN SODIUM 20 MG TAB PO SCH (19:56)
[2016-10-05] MEDS ORDERED: ALTEPLASE 2 MG VIAL IVP ONE (20:30)
--- NOTE | 2016-10-05 21:05 | SOAPPROG ---
SOAP Progress Note Assessment/Plan: Assessment: Plan: Subjective: hd w vss, af no further vomiting, passing flatus and stools. colonoscopy done today with biopsys. pt still with pain in ruq, but less than on admit. ct reviewed with dr hamilton. mass versus inflammed loops in ruq, ddx is cancer, inflammatin, etc. will await biopsies, observe for improvement. will need laparotomy if he becomies more ill over next several days. Objective: Vital Signs Temp Pulse Resp BP Pulse Ox 36.9 C 57 L 17 139/77 H 92 10/05/16 19:16 10/05/16 19:16 10/05/16 19:16 10/05/16 19:16 10/05/16 19:16 Laboratory Results 10/05/16 05:23 10/05/16 05:23 10/04/16 10/05/16 10/06/16 05:59 05:59 05:59 Intake Total 1000 2700 350 Output Total 650 500 Balance 1000 2050 -150 PT 14.8 SEC (12.0-15.0) 10/03/16 18:00 INR 1.16 (0.83-1.16) 10/03/16 18:00 ICD10 Worksheet Patient Problems: Problems Problem Status Onset Acute abdominal pain Acute Gastric adenocarcinoma Acute Small bowel obstruction Acute Abdominal pain Acute Acute cholecystitis Acute C. difficile diarrhea Acute 12/10/15 Fever Acute Jaundice Acute Small bowel obstruction due to adhesions Acute
[2016-10-06] MEDS: HYDROmorphONE/DILAUDID 1 MG/ML SYR IVP PRN ×3 (02:45→21:52)
[2016-10-06] MEDS: NS 1,000 ML IV SCH (05:17)
[2016-10-06 05:46] LABS: % IMMATURE GRANULYOCYTES 0.3 % (0.0-1.1); ABSOLUTE IMMATURE GRANULOCYTES 0.01 10^3/uL (0.00-0.10); ADD DIFF? NO; ADD MORPH? NO; ADD SCAN? NO; ATYPICAL LYMPHOCYTE FLAG 50 (0-99); FRAGMENT RBC FLAG 0 (0-99); LEFT SHIFT FLG 0 (0-99); LIPEMIA HEMOLYSIS FLAG 80 (0-99); MEAN CELL HEMOGLOBIN 34.4 pg (27.9-34.1); MEAN CELL HEMOGLOBIN CONCENTR. 33.3 g/dL (32.4-36.7); MEAN CELL VOLUME 103.1 fL (81.5-99.8); MEAN PLATELET VOLUME 10.5 fL (8.7-11.7); PLATELET CLUMPS FLAG 0 (0-99); PLATELET COUNT 136 10^3/uL (150-400); RED CELL DISTRIBUTION WIDTH 12.6 % (11.5-15.2)
[2016-10-06 06:12] LABS: ALANINE AMINOTRANSFERASE 87 IU/L (21-72); ALBUMIN 2.6 g/dL (3.5-5.0); ALKALINE PHOSPHATASE 155 IU/L (38-126); ANION GAP 10 mEq/L (8-16); ASPARTATE AMINOTRANSFERASE 233 IU/L (17-59); BILIRUBIN,TOTAL 0.7 mg/dL (0.1-1.4); CARBON DIOXIDE 24 mEq/l (22-31); CHLORIDE 106 mEq/L (97-110); CREATININE 0.7 mg/dL (0.7-1.3); GLOMERULAR FILTRATION RATE > 60; GLUCOSE 50 mg/dL (70-100); POTASSIUM 3.3 mEq/L (3.5-5.2); SODIUM 140 mEq/L (134-144); TOTAL PROTEIN 5.9 g/dL (6.3-8.2)
[2016-10-06] MEDS: ENOXAPARIN 40 MG/0.4 ML SYR SC SCH (13:10)
--- NOTE | 2016-10-06 14:29 | SOAPPROG ---
SOAP Progress Note Assessment/Plan: Assessment:Plan: 1) SBO - improved with less pain and some flatus, but still with abnl exam. path pending, unclear if related to recurrent cancer will f/u path. I do not think we play much of a role at this time and will sign off please recall if our expertise is needed. thank you Nicholas Oconnell M.D. [phone] 10/06/16 14:26 Subjective: cc- SBO pt syas he passed some flatus, has less pain but still not fully resolved Objective: Vital Signs Temp Pulse Resp BP Pulse Ox 36.6 C 51 L 16 143/76 H 91 L 10/06/16 08:47 10/06/16 08:47 10/06/16 08:47 10/06/16 08:47 10/06/16 08:47 Laboratory Results 10/06/16 05:25 10/06/16 05:25 10/05/16 10/06/16 10/07/16 05:59 05:59 05:59 Intake Total 2700 1850 Output Total 650 1700 Balance 2050 150 PT 14.8 SEC (12.0-15.0) 10/03/16 18:00 INR 1.16 (0.83-1.16) 10/03/16 18:00 A+Ox3 CTA S1S2, +BS, decreased freq, occ high pitch sounds, soft, tender no r/g ICD10 Worksheet Patient Problems: Problems Problem Status Onset Acute abdominal pain Acute Gastric adenocarcinoma Acute Small bowel obstruction Acute Abdominal pain Acute Acute cholecystitis Acute C. difficile diarrhea Acute 12/10/15 Fever Acute Jaundice Acute Small bowel obstruction due to adhesions Acute
[2016-10-06] MEDS ORDERED: ACETAMINOPHEN 500 MG TAB PO PRN (16:22)
--- NOTE | 2016-10-06 16:26 | HOSPPROG ---
Hospitalist Progress Note Assessment/Plan: 71 yo M w gastric and small bowel adenocarcinoma here w SBO and RUQ mass SBO: appears to have resolved in sense that she is tolerating oral prep now tolerating clear liquids will advance to mechanical soft diet mass: colonoscopy w biopsy yesterday etiology is likley stricture CAD: stents remotely on statin restart asa when eating, no procedures planned in AM elevated lft's: transaminases elevated possibly 2/2 hep B outpatient follow up no evidence synthetic dysfunction (normal bili, inr) proph: lmwh after procedures scd's for now code: full dispo: inpatient Subjective: colonoscopy w stricture at surgical anastamosis w no obvious tumor. case d/w dr batista Objective: Vital Signs Temp Pulse Resp BP Pulse Ox 36.6 C 51 L 16 143/76 H 91 L 10/06/16 08:47 10/06/16 08:47 10/06/16 08:47 10/06/16 08:47 10/06/16 08:47 Laboratory Results 10/06/16 05:25 10/06/16 05:25 10/05/16 10/06/16 10/07/16 05:59 05:59 05:59 Intake Total 2700 1850 Output Total 650 1700 Balance 2050 150 PT 14.8 SEC (12.0-15.0) 10/03/16 18:00 INR 1.16 (0.83-1.16) 10/03/16 18:00 - Physical Exam Constitutional: no apparent distress, appears nourished Eyes: PERRL, anicteric sclera Ears, Nose, Mouth, Throat: moist mucous membranes, hearing normal Cardiovascular: regular rate and rhythym, no murmur, rub, or gallop Respiratory: no respiratory distress, no rales or rhonchi Gastrointestinal: normoactive bowel sounds, soft, non-tender abdomen Genitourinary: no bladder fullness, No diego in urethra Skin: warm, normal color Musculoskeletal: full muscle strength, no muscle tenderness Neurologic: AAOx3 ICD10 Worksheet Patient Problems: Problems Problem Status Onset Acute abdominal pain Acute Gastric adenocarcinoma Acute Small bowel obstruction Acute Abdominal pain Acute Acute cholecystitis Acute C. difficile diarrhea Acute 12/10/15 Fever Acute Jaundice Acute Small bowel obstruction due to adhesions Acute
[2016-10-06] MEDS: PRAVASTATIN SODIUM 20 MG TAB PO SCH (20:16)
[2016-10-07 05:43] LABS: % IMMATURE GRANULYOCYTES 0.3 % (0.0-1.1); ABSOLUTE IMMATURE GRANULOCYTES 0.01 10^3/uL (0.00-0.10); ADD DIFF? NO; ADD MORPH? NO; ADD SCAN? NO; ATYPICAL LYMPHOCYTE FLAG 50 (0-99); FRAGMENT RBC FLAG 10 (0-99); HEMATOCRIT 33.8 % (40.0-51.0); HEMOGLOBIN 11.4 g/dL (13.7-17.5); LEFT SHIFT FLG 0 (0-99); LIPEMIA HEMOLYSIS FLAG 80 (0-99); MEAN CELL HEMOGLOBIN 34.2 pg (27.9-34.1); MEAN CELL HEMOGLOBIN CONCENTR. 33.7 g/dL (32.4-36.7); MEAN CELL VOLUME 101.5 fL (81.5-99.8); MEAN PLATELET VOLUME 10.3 fL (8.7-11.7); PLATELET CLUMPS FLAG 0 (0-99); PLATELET COUNT 156 10^3/uL (150-400); RED BLOOD CELL COUNT 3.33 10^6/uL (4.40-6.38); RED CELL DISTRIBUTION WIDTH 12.5 % (11.5-15.2)
[2016-10-07 05:51] VITALS: TEMP 98.3
[2016-10-07 05:56] LABS: ALANINE AMINOTRANSFERASE 83 IU/L (21-72); ALBUMIN 2.7 g/dL (3.5-5.0); ALKALINE PHOSPHATASE 158 IU/L (38-126); ANION GAP 9 mEq/L (8-16); ASPARTATE AMINOTRANSFERASE 220 IU/L (17-59); BILIRUBIN,TOTAL 0.7 mg/dL (0.1-1.4); CALCIUM 8.3 mg/dL (8.5-10.4); CARBON DIOXIDE 27 mEq/l (22-31); CHLORIDE 107 mEq/L (97-110); CREATININE 0.7 mg/dL (0.7-1.3); GLOMERULAR FILTRATION RATE > 60; GLUCOSE 61 mg/dL (70-100); POTASSIUM 3.4 mEq/L (3.5-5.2); SODIUM 143 mEq/L (134-144); TOTAL PROTEIN 6.1 g/dL (6.3-8.2)
[2016-10-07] MEDS: oxyCODONE IR 5 MG TAB PO PRN ×2 (08:04→12:13)
[2016-10-07] MEDS: ENOXAPARIN 40 MG/0.4 ML SYR SC SCH (08:13)
--- NOTE | 2016-10-07 11:32 | SOAPPROG ---
SOAP Progress Note Assessment/Plan: Assessment: Plan: Subjective: ongoing right sided abd pain, abnormal ct scan. abd soft, mild tenderness on right side pt tolerating diet, having liquid stools. path on colon biposies show inflammation, no malignancy. pt tells me his CEA values had been steadily rising as an outpatine, to about 40. in summary, abnormal ct scan with mass lie appearence around old anastamosis of resected adenocarcinoma of small bowel. this is liekly malignant, despite neitve biopsy. pt not acutely ill. reasonable to dischage on po pain meds, follow up as an outpatine this week with myself and dr melissa valverde to discuss workup and management. Objective: Vital Signs Temp Pulse Resp BP Pulse Ox 36.8 C 49 L 12 136/84 H 95 10/07/16 08:00 10/07/16 08:00 10/07/16 08:00 10/07/16 08:00 10/07/16 08:00 Laboratory Results 10/07/16 05:25 10/07/16 05:25 10/06/16 10/07/16 10/08/16 05:59 05:59 05:59 Intake Total 1850 1530 Output Total 1700 500 Balance 150 1030 PT 14.8 SEC (12.0-15.0) 10/03/16 18:00 INR 1.16 (0.83-1.16) 10/03/16 18:00 ICD10 Worksheet Patient Problems: Problems Problem Status Onset Acute abdominal pain Acute Gastric adenocarcinoma Acute Small bowel obstruction Acute Abdominal pain Acute Acute cholecystitis Acute C. difficile diarrhea Acute 12/10/15 Fever Acute Jaundice Acute Small bowel obstruction due to adhesions Acute
[2016-10-07] MEDS: HYDROmorphONE/DILAUDID 1 MG/ML SYR IVP PRN (11:47)
--- NOTE | 2016-10-07 12:42 | HOSPPROG ---
Hospitalist Progress Note Assessment/Plan: 71 yo M w gastric and small bowel adenocarcinoma here w SBO and RUQ mass SBO: appears to have resolved in sense that she is tolerating oral prep now tolerating clear liquids will advance to mechanical soft diet mass: colonoscopy w biopsy yesterday etiology is likley stricture CAD: stents remotely on statin restart asa when eating, no procedures planned in AM elevated lft's: transaminases elevated possibly 2/2 hep B outpatient follow up no evidence synthetic dysfunction (normal bili, inr) proph: lmwh after procedures scd's for now code: full dispo: home today > 30 minutes Subjective: eating well. pain improved. path neg for malignancy Objective: Vital Signs Temp Pulse Resp BP Pulse Ox 36.8 C 49 L 12 136/84 H 95 10/07/16 08:00 10/07/16 08:00 10/07/16 08:00 10/07/16 08:00 10/07/16 08:00 Laboratory Results 10/07/16 05:25 10/07/16 05:25 10/06/16 10/07/16 10/08/16 05:59 05:59 05:59 Intake Total 1850 1530 Output Total 1700 500 Balance 150 1030 PT 14.8 SEC (12.0-15.0) 10/03/16 18:00 INR 1.16 (0.83-1.16) 10/03/16 18:00 - Physical Exam Constitutional: no apparent distress, appears nourished Eyes: PERRL, anicteric sclera Ears, Nose, Mouth, Throat: moist mucous membranes, hearing normal Cardiovascular: regular rate and rhythym, no murmur, rub, or gallop Respiratory: no respiratory distress, no rales or rhonchi Gastrointestinal: normoactive bowel sounds, soft, non-tender abdomen, No guarding, No rebound Genitourinary: No diego in urethra Skin: warm, normal color Musculoskeletal: full muscle strength ICD10 Worksheet Patient Problems: Problems Problem Status Onset Acute abdominal pain Acute Gastric adenocarcinoma Acute Small bowel obstruction Acute Abdominal pain Acute Acute cholecystitis Acute C. difficile diarrhea Acute 12/10/15 Fever Acute Jaundice Acute Small bowel obstruction due to adhesions Acute
--- NOTE | 2016-10-07 13:00 | GDS ---
[f rep st] DISCHARGE SUMMARY DISCHARGE DIAGNOSES: 1. History of duodenal adenocarcinoma. 2. Partial small-bowel obstruction from extrinsic compression. 3. Gastric adenocarcinoma. 4. Celiac. 5. History of hepatitis B with elevated liver function tests. 6. Coronary artery disease. PROCEDURES: During this admission, colonoscopy with biopsy, with negative pathology. Noted was bow el obstruction, surgical anastomosis with bowel edema. CAT scan had previously shown a soft tissue mass in the area of the anastomosis. It is the opinion of Dr. Cuevas that this represents likely recurrence. The patient is discharged home today. He has outpatient followup with Dr. Marija Connolly, his oncologist, as well as Dr. Cuevas. He has elev ated LFTs that are stable and likely secondary to chronic hepatitis B. This has not been treated. Ben lopez is discharged home with a prescription for pain medicines given his ongoing pain here. /[id number]/MODL
[2016-10-07 14:16] VITALS: BP 139/85; PULSE 47; RESP 14; O2SAT 94
== END 2016-10-07 14:38 | disposition home or self-care (01) | DRG 390 ==
LOC: F1N 22:18
PROVIDERS: ADMIT Internal Medicine; ATTEND Internal Medicine
PROC: 0DB88ZX Excision of Small Intestine, Via Natural or Artificial Opening Endoscopic, Diagnostic (ICD-10-PCS; principal; 2016-10-05 11:00)
DX: K56.60 Unspecified intestinal obstruction (principal); K52.9 Noninfective gastroenteritis and colitis, unspecified; K90.0 Celiac disease; Z85.09 Personal history of malignant neoplasm of other digestive organs; I25.2 Old myocardial infarction; Z80.1 Family history of malignant neoplasm of trachea, bronchus and lung
CPT/HCPCS: 82947-QW; 96374; J1170; J1650; J2250; J2405; J2704; J2997; J3010; Q9967

== ENCOUNTER 2016-10-10 13:33 | Inpatient (IN) | payer OTHER ==
[2016-10-10] MEDS ORDERED: HYDROmorphONE/DILAUDID 1 MG/ML SYR ONE ×2 (14:26→22:34)
[2016-10-10] MEDS ORDERED: ONDANSETRON 4 MG/2 ML VIAL ONE ×3 (14:26→22:08)
--- NOTE | 2016-10-10 14:38 | EDPHY ---
H & P Stated Complaint: Epigastric Abdo pain, Hx of bowel obstruction. Time Seen by Provider: 10/10/16 14:15 HPI/ROS: CHIEF COMPLAINT: Abdominal pain HISTORY OF PRESENT ILLNESS: 71-year-old male past medical history stomach cancer and ileum cancer presents emergency department complaining of worsening abdominal pain. Patient was discharged from the hospital 2 days ago with abdominal pain, sent home on OxyContin, he reports his pain today is not controlled. Patient noticed abdominal distention which is new today. He has not had a bowel movement in 6 days and reports passing minimal gas. He is eating and drinking, urinating without difficulty, no fevers. He reports mild nausea. 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 REVIEW OF SYSTEMS: A comprehensive 10 point review of systems is otherwise negative aside from elements mentioned in the history of present illness. Source: Patient, Family, Old records Exam Limitations: No limitations - Personal History Current Tetanus/Diphtheria Vaccine: Yes Current Tetanus Diphtheria and Acellular Pertussis (TDAP): Yes Tetanus Vaccine Date: spring - Medical/Surgical History Hx Asthma: No Hx Chronic Respiratory Disease: No Hx Diabetes: No Hx Cardiac Disease: Yes Hx Renal Disease: No Hx Cirrhosis: No Hx Alcoholism: No Hx HIV/AIDS: No Hx Splenectomy or Spleen Trauma: No Other PMH: PMH: celiac, Hep B in 1970, stomach ca, ileal ca (finished chemo Jul). PSH: LAD stent [place] in [place], partial gastrectomy 2011, cataract, hernia repair, S/P Ayanna - Social History Smoking Status: Never smoked - Physical Exam Exam: Physical Exam Gen: Alert and Oriented, pale HEENT: PERRL, dry mucous membranes NECK: no meningismus CV: regular rate and regular rhythm PULM: CTAB, no wheezes ABDOMEN: soft, diffuse tenderness to palpation, decreased bowel sounds BACK: No CVA tenderness NEURO: Neurologically grossly intact EXTREMITIES: normal appearing SKIN: Chemo port in place left upper chest PSYCH: answers questions appropriately. Constitutional: Initial Vital Signs Temperature (C) 36.6 C 10/10/16 13:42 Heart Rate 62 10/10/16 13:42 Respiratory Rate 18 10/10/16 13:42 Blood Pressure 126/80 H 10/10/16 13:42 O2 Sat (%) 94 10/10/16 13:42 O2 Delivery Mode Room Air Allergies/Adverse Reactions: gluten Allergy (Verified 10/10/16 13:47) Penicillins Allergy (Verified 10/10/16 13:47) wheat Allergy (Verified 10/10/16 13:47) Home Medications: Medication Instructions Recorded Aspirin [Aspirin 81mg (*)] 81 mg PO DAILY 09/19/15 Multivitamins [Multivitamin (*)] 1 each PO DAILY 09/19/15 [place]-3 Fatty Acids [Fish Oil 1000 1,000 mg PO DAILY 09/19/15 mg (*)] Simvastatin 10 mg PO HS 09/19/15 Acetaminophen [Tylenol 325mg (*)] 650 mg PO Q4 PRN #30 tab 12/24/15 Loperamide HCl [Imodium 2 mg (*)] 2 mg PO TID PRN 10/03/16 oxyCODONE IR [Oxycodone Ir (*)] 5 - 10 mg PO Q4HRS PRN #120 tab 10/07/16 Cholecalciferol Vit D3 [Vitamin D3 6,000 units PO DAILY 10/10/16 2000 units tab (OTC)] Pantoprazole Sodium [Protonix 40mg 40 mg PO BID 10/10/16 (*)] diphenhydrAMINE [Benadryl 25 MG 25 mg PO DAILY PRN 10/10/16 (*)] Medical Decision Making - Diagnostics Imaging: CT abdomen pelvis with IV contrast report called to me by - patient has a high-grade distal small-bowel obstruction at the ileocolonic anastomosis. ED Course/Re-evaluation: Port has been accessed, bloods drawn and sent to the lab. Patient is given 1 L of normal saline, 1 mg of Dilaudid for pain and 4 mg of Zofran. [id number] spoke with Dr. Corbin about this patient. He is recommending a CT of his abdomen and basic labs. 1600-Dr. Corbin at bedside. The patient does have a high-grade distal small- bowel obstruction at the ileocolonic anastomosis. Patient will be admitted to Dr. Corbin who will take him to the operating room tonight. - Data Points Laboratory Results: Laboratory Results 10/10/16 14:20 10/10/16 14:20 10/10/16 10/10/16 14:20 14:20 WBC 5.94 10^3/uL 10^3/uL (3.80-9.50) RBC 3.83 10^6/uL L 10^6/uL (4.40-6.38) Hgb 13.1 g/dL L g/dL (13.7-17.5) Hct 38.8 % L % (40.0-51.0) MCV 101.3 fL H fL (81.5-99.8) MCH 34.2 pg H pg (27.9-34.1) MCHC 33.8 g/dL g/dL (32.4-36.7) RDW 12.7 % % (11.5-15.2) Plt Count 169 10^3/uL 10^3/uL (150-400) MPV 10.4 fL fL (8.7-11.7) Neut % (Auto) 70.2 % % (39.3-74.2) Lymph % (Auto) 13.8 % L % (15.0-45.0) [place] % (Auto) 14.1 % H % (4.5-13.0) Eos % (Auto) 1.2 % % (0.6-7.6) Baso % (Auto) 0.5 % % (0.3-1.7) Nucleat RBC Rel Count 0.0 % % (0.0-0.2) Absolute Neuts (auto) 4.17 10^3/uL 10^3/uL (1.70-6.50) Absolute Lymphs (auto) 0.82 10^3/uL L 10^3/uL (1.00-3.00) Absolute Monos (auto) 0.84 10^3/uL H 10^3/uL (0.30-0.80) Absolute Eos (auto) 0.07 10^3/uL 10^3/uL (0.03-0.40) Absolute Basos (auto) 0.03 10^3/uL 10^3/uL (0.02-0.10) Absolute Nucleated RBC 0.00 10^3/uL 10^3/uL (0-0.01) Immature Gran % 0.2 % % (0.0-1.1) Immature Gran # 0.01 10^3/uL 10^3/uL (0.00-0.10) Sodium 140 mEq/L mEq/L (134-144) Potassium 3.4 mEq/L L mEq/L (3.5-5.2) Chloride 101 mEq/L mEq/L (97-110) Carbon Dioxide 29 mEq/l mEq/l (22-31) Anion Gap 10 mEq/L mEq/L (8-16) BUN 14 mg/dL mg/dL (7-23) Creatinine 0.8 mg/dL mg/dL (0.7-1.3) Estimated GFR > 60 Glucose 103 mg/dL H mg/dL (70-100) Calcium 7.8 mg/dL L mg/dL (8.5-10.4) Medications Given: Discontinued Medications Hydromorphone HCl (Dilaudid) 1 mg IVP EDNOW ONE Stop: 10/10/16 14:40 Last Admin: 10/10/16 14:50 Dose: 1 mg Hydromorphone HCl (Dilaudid) 1 mg IVP EDNOW ONE Stop: 10/10/16 16:46 Last Admin: 10/10/16 16:46 Dose: 1 mg Ondansetron HCl (Zofran) 4 mg IVP EDNOW ONE Stop: 10/10/16 14:40 Last Admin: 10/10/16 14:50 Dose: 4 mg Departure - Departure Disposition: [facility] Inpatient Acute Clinical Impression: Small bowel obstruction Condition: Fair
[2016-10-10 14:39] LABS: % IMMATURE GRANULYOCYTES 0.2 % (0.0-1.1); ABSOLUTE IMMATURE GRANULOCYTES 0.01 10^3/uL (0.00-0.10); ADD DIFF? NO; ADD MORPH? NO; ADD SCAN? NO; ATYPICAL LYMPHOCYTE FLAG 50 (0-99); FRAGMENT RBC FLAG 0 (0-99); HEMATOCRIT 38.8 % (40.0-51.0); HEMOGLOBIN 13.1 g/dL (13.7-17.5); LEFT SHIFT FLG 10 (0-99); LIPEMIA HEMOLYSIS FLAG 90 (0-99); MEAN CELL HEMOGLOBIN 34.2 pg (27.9-34.1); MEAN CELL HEMOGLOBIN CONCENTR. 33.8 g/dL (32.4-36.7); MEAN CELL VOLUME 101.3 fL (81.5-99.8); MEAN PLATELET VOLUME 10.4 fL (8.7-11.7); PLATELET CLUMPS FLAG 20 (0-99); PLATELET COUNT 169 10^3/uL (150-400); RED BLOOD CELL COUNT 3.83 10^6/uL (4.40-6.38); RED CELL DISTRIBUTION WIDTH 12.7 % (11.5-15.2)
[2016-10-10] MEDS ORDERED: ONDANSETRON 4 MG/2 ML VIAL IVP ONE (14:39)
[2016-10-10] MEDS ORDERED: HYDROmorphONE/DILAUDID 1 MG/ML SYR IVP ONE ×2 (14:39→16:45)
[2016-10-10 14:53] LABS: ANION GAP 10 mEq/L (8-16); CALCIUM 7.8 mg/dL (8.5-10.4); CARBON DIOXIDE 29 mEq/l (22-31); CHLORIDE 101 mEq/L (97-110); CREATININE 0.8 mg/dL (0.7-1.3); GLOMERULAR FILTRATION RATE > 60; GLUCOSE 103 mg/dL (70-100); POTASSIUM 3.4 mEq/L (3.5-5.2); SODIUM 140 mEq/L (134-144)
[2016-10-10] MEDS ORDERED: IOPAMIDOL (ISOVUE-300) 100 ML BTL IV ONE (15:11)
--- NOTE | 2016-10-10 16:53 | GHP ---
[f rep st] HISTORY AND PHYSICAL DATE OF ADMISSION: 10/10/2016 CHIEF COMPLAINT: Worsening abdominal pain, nausea. PRESENT ILLNESS: 71-year-old male with worsening abdominal pain and distention. The patient was see n last week in the hospital for similar complaints, and the CT scan shows matted area of bowel in th e right lateral abdomen. He was discharged home to be followed. He now presents with a repeat CT sca n showing small bowel loops greater than 5 cm, distal small bowel obstruction with possibly some nor mal terminal ilium, but it is possible that the distention goes all the way to his previous right co lectomy anastomotic site. The vasculature in the mid right abdomen is somewhat suggestive of a swirl sign consistent with volv ulus, although this is not definite. 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 He also had a stomach cancer resected many years ago , from which he apparently was cured. He also had acute cholecystitis a year ago. REVIEW OF SYSTEMS: Noncontributory. CURRENT MEDICATIONS: Simvastatin 10 mg p.o. daily. ALLERGIES: Penicillin and also daily aspirin. SOCIAL HISTORY: He is a retired associate financial representative. Nonsmoker. Drank alcohol daily until he becam e ill a week ago. LABORATORY DATA: Exams today include a normal white count, normal hematocrit and platelets. An albu min done on the last admission was low at 2.7. PHYSICAL EXAMINATION: HEENT: Within normal limits. LUNGS: Clear. HEART: Normal, S1, S2 without murm ur. ABDOMEN: Mildly distended. Moderately tender. Multiple healed surgical incisions. No obvious her nias. EXTREMITIES/NEUROLOGIC: Exam grossly normal. DIAGNOSTIC TESTING: CT is reviewed with the findings as mentioned above. There is also a moderate a mount of free fluid consistent with a small-bowel obstruction. ASSESSMENT: Small-bowel obstruction which was not complete on the last admission but certainly look s worse, and I doubt he will get better with NG decompression. I discussed with the patient the opti on of an NG tube and observation versus surgery tonight. With the increased free fluid and discomfor t, I think surgery tonight is reasonable, and he would like to do this. Risk of infection, bleeding, recurrence of small bowel obstruction, etc., have been explained to the patient. He understands and is willing to proceed. /[id number]/MODL
[2016-10-10] MEDS ORDERED: LIDOCAINE 2% 100 MG/5 ML SYR ONE (17:57)
[2016-10-10] MEDS ORDERED: ROCURONIUM 50 MG/5 ML VIAL ONE ×2 (17:57→18:55)
[2016-10-10] MEDS ORDERED: DEXAMETHASONE 4 MG/ML VIAL ONE (17:57)
[2016-10-10] MEDS ORDERED: SUGAMMADEX SODIUM 200 MG/2 ML VIAL IVP ONE (17:57)
[2016-10-10] MEDS ORDERED: fentaNYL 250 MCG/5 ML INJ ONE (17:58)
[2016-10-10] MEDS ORDERED: PROPOFOL 200 MG/20 ML VIAL ONE (17:58)
[2016-10-10] MEDS ORDERED: MIDAZOLAM 2 MG/2 ML VIAL ONE (17:59)
[2016-10-10] MEDS ORDERED: NARCOTIC DRIP BAG-TOTAL ALL TYPES IV PRN (18:54)
[2016-10-10] MEDS ORDERED: ERTAPENEM 1 GM in NS 100 ML IV ONE (19:00)
[2016-10-10] MEDS ORDERED: PHENYLEPHRINE HCL 100 MCG/ML SYR ONE ×2 (19:33)
[2016-10-10] MEDS ORDERED: LIDOCAINE 2% 5 ML SDV ONE ×2 (20:04→20:15)
[2016-10-10] MEDS ORDERED: ROCURONIUM 100 MG/10 ML VIAL ONE (20:11)
[2016-10-10] MEDS ORDERED: MEPERIDINE 25 MG/ML SYR ONE (21:55)
[2016-10-10] MEDS ORDERED: D10W 1,000 ML IV PRN (22:02)
[2016-10-10] MEDS ORDERED: fentaNYL 100 MCG/2 ML INJ ONE (22:16)
[2016-10-10] MEDS: LR 1,000 ML IV SCH (23:39)
[2016-10-11] MEDS: LR 1,000 ML IV SCH ×3 (06:15→21:13)
[2016-10-11 06:27] LABS: ADD MORPH? NO; ADD SCAN? YES; ATYPICAL LYMPHOCYTE FLAG 50 (0-99); FRAGMENT RBC FLAG 0 (0-99); HEMATOCRIT 41.6 % (40.0-51.0); HEMOGLOBIN 14.1 g/dL (13.7-17.5); LIPEMIA HEMOLYSIS FLAG 90 (0-99); MEAN CELL HEMOGLOBIN 33.9 pg (27.9-34.1); MEAN CELL HEMOGLOBIN CONCENTR. 33.9 g/dL (32.4-36.7); MEAN PLATELET VOLUME 10.9 fL (8.7-11.7); PLATELET CLUMPS FLAG 0 (0-99); PLATELET COUNT 182 10^3/uL (150-400); RED BLOOD CELL COUNT 4.16 10^6/uL (4.40-6.38); RED CELL DISTRIBUTION WIDTH 12.6 % (11.5-15.2)
[2016-10-11 06:28] LABS: LEFT SHIFT FLG 110 (0-99)
[2016-10-11 06:37] LABS: INR 1.3 (0.83-1.16); PROTIME(PATIENT) 16.2 SEC (12.0-15.0)
[2016-10-11 06:40] LABS: ALANINE AMINOTRANSFERASE 64 IU/L (21-72); ALBUMIN 2.4 g/dL (3.5-5.0); ALKALINE PHOSPHATASE 124 IU/L (38-126); ANION GAP 6 mEq/L (8-16); ASPARTATE AMINOTRANSFERASE 164 IU/L (17-59); BILIRUBIN,TOTAL 0.8 mg/dL (0.1-1.4); CALCIUM 7.6 mg/dL (8.5-10.4); CARBON DIOXIDE 31 mEq/l (22-31); CHLORIDE 102 mEq/L (97-110); CREATININE 0.7 mg/dL (0.7-1.3); GLOMERULAR FILTRATION RATE > 60; GLUCOSE 103 mg/dL (70-100); MAGNESIUM 1.3 mg/dL (1.6-2.3); POTASSIUM 3.7 mEq/L (3.5-5.2); SODIUM 139 mEq/L (134-144); TOTAL PROTEIN 5.4 g/dL (6.3-8.2)
[2016-10-11 06:44] LABS: ADD DIFF? YES; SCAN POSITIVE
[2016-10-11 06:48] LABS: PLATELET ESTIMATE DECREASED (ADEQ)
[2016-10-11] MEDS ORDERED: MAGNESIUM SULF 2 GM/WATER 50 ML IV ONE (10:30)
--- NOTE | 2016-10-11 14:08 | SOAPPROG ---
SOAP Progress Note Assessment/Plan: Assessment: 71 yo male s/p exploratory laparotomy for SBO. POD 1. Pain reasonably controlled with thoracic epidural. Plan: Increase epidural rate to 5 cc/hr taking into account regular use of bolus function. Increase bolus dose to 2 cc, limit 2/hr. Continue bupivicaine/ hydromorphone mix for now. May d/c bupiv if ambulation desired. 10/11/16 14:04 Subjective: Pain reasonably controlled. Some breakthrough pain with movement. Using bolus function about 2x/hr. Denies motor weakness in upper and lower extremities. Some numbness over abdomen Objective: Neuro grossly intact. Awake and alert. U and LE motor function intact. Epidural site clean dry intact Vital Signs Temp Pulse Resp BP Pulse Ox 36.6 C 67 16 117/73 95 10/11/16 11:59 10/11/16 11:59 10/11/16 11:59 10/11/16 11:59 10/11/16 11:59 Laboratory Results 10/11/16 06:05 10/11/16 06:05 10/10/16 10/11/16 10/12/16 05:59 05:59 05:59 Intake Total 4538 Output Total 975 Balance 3563 PT 16.2 SEC (12.0-15.0) H 10/11/16 06:05 INR 1.30 (0.83-1.16) H 10/11/16 06:05 - Time Spent With Patient Time Spent With Patient: 10 min ICD10 Worksheet Patient Problems: Problems Problem Status Onset Small bowel obstruction Acute Abdominal pain Acute Acute abdominal pain Acute Acute cholecystitis Acute C. difficile diarrhea Acute 12/10/15 Fever Acute Gastric adenocarcinoma Acute Jaundice Acute Small bowel obstruction Acute Small bowel obstruction due to adhesions Acute
--- NOTE | 2016-10-11 20:00 | SOAPPROG ---
SOAP Progress Note Assessment/Plan: Assessment: Plan: Subjective: vss, af hct ok abd softer, pain well controlled with epidural. no flatus plan: cont ng sution and npo until passing flatus, expect 4-5 days of ileus. tpn starting tonight Objective: Vital Signs Temp Pulse Resp BP Pulse Ox 36.8 C 69 16 108/67 95 10/11/16 15:58 10/11/16 15:58 10/11/16 15:58 10/11/16 15:58 10/11/16 15:58 Laboratory Results 10/11/16 06:05 10/11/16 06:05 10/10/16 10/11/16 10/12/16 05:59 05:59 05:59 Intake Total 4538 1408 Output Total 975 500 Balance 3563 908 PT 16.2 SEC (12.0-15.0) H 10/11/16 06:05 INR 1.30 (0.83-1.16) H 10/11/16 06:05 ICD10 Worksheet Patient Problems: Problems Problem Status Onset Small bowel obstruction Acute Abdominal pain Acute Acute abdominal pain Acute Acute cholecystitis Acute C. difficile diarrhea Acute 12/10/15 Fever Acute Gastric adenocarcinoma Acute Jaundice Acute Small bowel obstruction Acute Small bowel obstruction due to adhesions Acute
[2016-10-11] MEDS: TPN W/ FAMOTIDINE 1 EA BAG IV SCH (21:13)
[2016-10-11] MEDS: HEPARIN 5,000 UNIT/0.5 ML SYR SC SCH (21:35)
[2016-10-12 04:29] LABS: % IMMATURE GRANULYOCYTES 0.3 % (0.0-1.1); ABSOLUTE IMMATURE GRANULOCYTES 0.03 10^3/uL (0.00-0.10); ADD DIFF? NO; ADD MORPH? NO; ADD SCAN? NO; ATYPICAL LYMPHOCYTE FLAG 70 (0-99); FRAGMENT RBC FLAG 0 (0-99); HEMATOCRIT 36.3 % (40.0-51.0); HEMOGLOBIN 12.4 g/dL (13.7-17.5); LEFT SHIFT FLG 60 (0-99); LIPEMIA HEMOLYSIS FLAG 90 (0-99); MEAN CELL HEMOGLOBIN 34.4 pg (27.9-34.1); MEAN CELL HEMOGLOBIN CONCENTR. 34.2 g/dL (32.4-36.7); MEAN CELL VOLUME 100.8 fL (81.5-99.8); MEAN PLATELET VOLUME 10.5 fL (8.7-11.7); PLATELET CLUMPS FLAG 0 (0-99); PLATELET COUNT 151 10^3/uL (150-400); RED CELL DISTRIBUTION WIDTH 12.5 % (11.5-15.2)
[2016-10-12 04:37] LABS: APTT 36.4 SEC (23.0-38.0); INR 1.48 (0.83-1.16); PROTIME(PATIENT) 17.9 SEC (12.0-15.0)
[2016-10-12 04:44] LABS: ALANINE AMINOTRANSFERASE 49 IU/L (21-72); ALBUMIN 2.2 g/dL (3.5-5.0); ALKALINE PHOSPHATASE 100 IU/L (38-126); ANION GAP 5 mEq/L (8-16); ASPARTATE AMINOTRANSFERASE 108 IU/L (17-59); BILIRUBIN,TOTAL 0.6 mg/dL (0.1-1.4); CALCIUM 7.7 mg/dL (8.5-10.4); CARBON DIOXIDE 28 mEq/l (22-31); CHLORIDE 102 mEq/L (97-110); CREATININE 0.7 mg/dL (0.7-1.3); GLOMERULAR FILTRATION RATE > 60; GLUCOSE 123 mg/dL (70-100); POTASSIUM 3.7 mEq/L (3.5-5.2); SODIUM 135 mEq/L (134-144); TOTAL PROTEIN 5.3 g/dL (6.3-8.2)
[2016-10-12] MEDS ORDERED: K PHOS 10 MMOL in D5W 250 ML IV ONE (08:30)
[2016-10-12] MEDS: HEPARIN 5,000 UNIT/0.5 ML SYR SC SCH ×2 (09:59→21:13)
--- NOTE | 2016-10-12 10:10 | SOAPPROG ---
SOAP Progress Note Assessment/Plan: Assessment: Plan: Subjective: pod 2 vss,af labs all ok abd soft no flatus cont npo, await resolution of ileus Objective: Vital Signs Temp Pulse Resp BP Pulse Ox 36.9 C 68 16 132/82 H 98 10/12/16 06:23 10/12/16 06:23 10/12/16 06:23 10/12/16 06:23 10/12/16 06:23 Laboratory Results 10/12/16 04:20 10/12/16 04:20 10/11/16 10/12/16 10/13/16 05:59 05:59 05:59 Intake Total 4538 2408 Output Total 975 1050 Balance 3563 1358 PT 17.9 SEC (12.0-15.0) H 10/12/16 04:20 INR 1.48 (0.83-1.16) H 10/12/16 04:20 ICD10 Worksheet Patient Problems: Problems Problem Status Onset Small bowel obstruction Acute Abdominal pain Acute Acute abdominal pain Acute Acute cholecystitis Acute C. difficile diarrhea Acute 12/10/15 Fever Acute Gastric adenocarcinoma Acute Jaundice Acute Small bowel obstruction Acute Small bowel obstruction due to adhesions Acute
--- NOTE | 2016-10-12 15:11 | SOAPPROG ---
SOAP Progress Note Assessment/Plan: Assessment: 71 yo male s/p exploratory laparotomy for SBO. POD 2. Pain reasonably controlled with thoracic epidural. Plan: Epidural rate decreased from 5 cc/hr to 3. Bolus dose at 2 cc, limit 2/hr. Continue bupivicaine/hydromorphone mix for now. Ok to be out of bed to chair, ambulate with assistance only. Small dose of thoracic epidural bupivicaine unlikely to cause significant leg weakness. 10/11/16 14:04 10/12/16 15:08 Subjective: Pain well controlled. Able to sleep now. Denies U or LE weakness, paresthesias. Objective: Sleeping. Easily arousable and appropriate. Neuro grossly intact. Epidural site clean dry intact. Vital Signs Temp Pulse Resp BP Pulse Ox 36.8 C 71 18 131/79 H 94 10/12/16 11:41 10/12/16 14:00 10/12/16 11:41 10/12/16 14:00 10/12/16 14:00 Laboratory Results 10/12/16 04:20 10/12/16 04:20 10/11/16 10/12/16 10/13/16 05:59 05:59 05:59 Intake Total 4538 2408 Output Total 975 1050 1200 Balance 3563 1358 -1200 PT 17.9 SEC (12.0-15.0) H 10/12/16 04:20 INR 1.48 (0.83-1.16) H 10/12/16 04:20 ICD10 Worksheet Patient Problems: Problems Problem Status Onset Small bowel obstruction Acute Abdominal pain Acute Acute abdominal pain Acute Acute cholecystitis Acute C. difficile diarrhea Acute 12/10/15 Fever Acute Gastric adenocarcinoma Acute Jaundice Acute Small bowel obstruction Acute Small bowel obstruction due to adhesions Acute
[2016-10-12] MEDS: TPN W/ FAMOTIDINE 1 EA BAG IV SCH (20:58)
[2016-10-12] MEDS: LR 1,000 ML IV SCH (20:58)
[2016-10-13 05:26] LABS: INR 1.13 (0.83-1.16); PROTIME(PATIENT) 14.4 SEC (12.0-15.0)
[2016-10-13 05:27] LABS: ALANINE AMINOTRANSFERASE 40 IU/L (21-72); ALBUMIN 2.2 g/dL (3.5-5.0); ALKALINE PHOSPHATASE 89 IU/L (38-126); ANION GAP 4 mEq/L (8-16); APTT 35.9 SEC (23.0-38.0); ASPARTATE AMINOTRANSFERASE 75 IU/L (17-59); BILIRUBIN,TOTAL 0.5 mg/dL (0.1-1.4); CARBON DIOXIDE 30 mEq/l (22-31); CHLORIDE 107 mEq/L (97-110); CREATININE 0.6 mg/dL (0.7-1.3); GLOMERULAR FILTRATION RATE > 60; GLUCOSE 115 mg/dL (70-100); POTASSIUM 3.5 mEq/L (3.5-5.2); SODIUM 141 mEq/L (134-144); TOTAL PROTEIN 5.2 g/dL (6.3-8.2)
[2016-10-13 05:46] LABS: % IMMATURE GRANULYOCYTES 0.6 % (0.0-1.1); ABSOLUTE IMMATURE GRANULOCYTES 0.04 10^3/uL (0.00-0.10); ADD DIFF? NO; ADD MORPH? NO; ADD SCAN? YES; FRAGMENT RBC FLAG 0 (0-99); HEMATOCRIT 33.2 % (40.0-51.0); HEMOGLOBIN 11.2 g/dL (13.7-17.5); LEFT SHIFT FLG 10 (0-99); LIPEMIA HEMOLYSIS FLAG 80 (0-99); MEAN CELL HEMOGLOBIN 33.8 pg (27.9-34.1); MEAN CELL HEMOGLOBIN CONCENTR. 33.7 g/dL (32.4-36.7); MEAN CELL VOLUME 100.3 fL (81.5-99.8); MEAN PLATELET VOLUME 11.4 fL (8.7-11.7); PLATELET CLUMPS FLAG 0 (0-99); PLATELET COUNT 152 10^3/uL (150-400); RED BLOOD CELL COUNT 3.31 10^6/uL (4.40-6.38); RED CELL DISTRIBUTION WIDTH 12.4 % (11.5-15.2)
[2016-10-13 05:50] LABS: ATYPICAL LYMPHOCYTE FLAG 140 (0-99)
[2016-10-13 06:28] LABS: SCAN POSITIVE
[2016-10-13 06:36] LABS: MICROCYTES 1+; PLATELET ESTIMATE ADEQUATE (ADEQ)
[2016-10-13] MEDS: HEPARIN 5,000 UNIT/0.5 ML SYR SC SCH ×2 (09:32→20:23)
[2016-10-13] MEDS: HYDROMORPHONE HCL EP SCH (10:04)
[2016-10-13] MEDS: NS EP SCH (10:04)
[2016-10-13] MEDS: BUPIVACAINE 0.5% EP SCH (10:04)
[2016-10-13] MEDS: POTASSIUM Cl (KCl) 100 ML IV SCH ×3 (11:17→13:55)
[2016-10-13] MEDS ORDERED: ACETAMINOPHEN 650 MG SUPP PR PRN (18:59)
[2016-10-13] MEDS: LR 1,000 ML IV SCH (20:23)
[2016-10-13] MEDS: TPN W/ FAMOTIDINE 1 EA BAG IV SCH (20:23)
[2016-10-14 06:43] LABS: ANION GAP 5 mEq/L (8-16); CALCIUM 7.9 mg/dL (8.5-10.4); CARBON DIOXIDE 29 mEq/l (22-31); CHLORIDE 107 mEq/L (97-110); CREATININE 0.5 mg/dL (0.7-1.3); GLOMERULAR FILTRATION RATE > 60; GLUCOSE 108 mg/dL (70-100); POTASSIUM 3.6 mEq/L (3.5-5.2); SODIUM 141 mEq/L (134-144)
[2016-10-14] MEDS: HEPARIN 5,000 UNIT/0.5 ML SYR SC SCH ×2 (08:14→20:17)
[2016-10-14] MEDS: NS EP SCH (09:01)
[2016-10-14] MEDS: BUPIVACAINE 0.5% EP SCH (09:01)
[2016-10-14] MEDS: HYDROMORPHONE HCL EP SCH (09:01)
--- NOTE | 2016-10-14 10:04 | SOAPPROG ---
SOAP Progress Note Assessment/Plan: Assessment: Plan: Subjective: pod 4 vss, af labs ok abd soft will dc ng when passing flatus Objective: Vital Signs Temp Pulse Resp BP Pulse Ox 36.7 C 58 L 18 146/81 H 93 10/14/16 08:00 10/14/16 08:00 10/14/16 08:00 10/14/16 08:00 10/14/16 08:00 Laboratory Results 10/13/16 04:50 10/14/16 05:53 10/13/16 10/14/16 10/15/16 05:59 05:59 05:59 Intake Total 2800 2654 Output Total 1900 4900 500 Balance 900 -2246 -500 PT 14.4 SEC (12.0-15.0) 10/13/16 04:50 INR 1.13 (0.83-1.16) 10/13/16 04:50 ICD10 Worksheet Patient Problems: Problems Problem Status Onset Small bowel obstruction Acute Abdominal pain Acute Acute abdominal pain Acute Acute cholecystitis Acute C. difficile diarrhea Acute 12/10/15 Fever Acute Gastric adenocarcinoma Acute Jaundice Acute Small bowel obstruction Acute Small bowel obstruction due to adhesions Acute
[2016-10-14] MEDS: POTASSIUM Cl (KCl) 100 ML IV SCH ×3 (12:20→14:30)
[2016-10-14] MEDS: LR 1,000 ML IV SCH (20:18)
[2016-10-14] MEDS: TPN W/ FAMOTIDINE 1 EA BAG IV SCH (20:18)
[2016-10-15] MEDS ORDERED: NALOXONE HCL 0.4 MG/ML INJ IVP PRN (00:46)
[2016-10-15] MEDS ORDERED: HYDROmorphONE/DILAUDID 6 MG/30 ML PCA IV PRN (00:46)
[2016-10-15] MEDS: ONDANSETRON 4 MG/2 ML VIAL IVP PRN ×2 (01:33→15:40)
--- NOTE | 2016-10-15 07:07 | SOAPPROG ---
SOAP Progress Note Assessment/Plan: Assessment:no overnight issues. min pain. no flatus. AFSS. comfortable. abd non-distended. incision clean. NG gastric only. doing well. await return GI function. trial catheter removal to help with ambulation. epidural per anesthesia. Plan: 10/15/16 07:05 Objective: Vital Signs Temp Pulse Resp BP Pulse Ox 36.9 C 59 L 18 135/85 H 96 10/15/16 04:21 10/15/16 04:21 10/15/16 04:21 10/15/16 04:21 10/15/16 04:21 Laboratory Results 10/13/16 04:50 10/14/16 05:53 10/14/16 10/15/16 10/16/16 05:59 05:59 05:59 Intake Total 2654 2194.5 Output Total 4900 4125 Balance -2246 -1930.5 PT 14.4 SEC (12.0-15.0) 10/13/16 04:50 INR 1.13 (0.83-1.16) 10/13/16 04:50 ICD10 Worksheet Patient Problems: Problems Problem Status Onset Small bowel obstruction Acute Abdominal pain Acute Acute abdominal pain Acute Acute cholecystitis Acute C. difficile diarrhea Acute 12/10/15 Fever Acute Gastric adenocarcinoma Acute Jaundice Acute Small bowel obstruction Acute Small bowel obstruction due to adhesions Acute
[2016-10-15] MEDS: HEPARIN 5,000 UNIT/0.5 ML SYR SC SCH ×2 (10:30→20:34)
--- NOTE | 2016-10-15 14:26 | SOAPPROG ---
SOAP Progress Note Assessment/Plan: Assessment: 71 yo male s/p exploratory laparotomy for SBO. Pain reasonably controlled with thoracic epidural off, using COMPONENTS ENGINEER. Plan: Epidural removal-completed. Continue COMPONENTS ENGINEER. Subjective: Pain controlled overnight with COMPONENTS ENGINEER when pain developed after epidural stopped working. Denies positional JONES, some JONES present 2-3. No numbness tingling paresthesias in U or LE. Objective: Epidural site with small amount of inflammation, edema likely from epidural cath leakage at site. No tenderness at epidural site. Cath removed. Tip intact. Vital Signs Temp Pulse Resp BP Pulse Ox 36.6 C 57 L 18 146/83 H 95 10/15/16 12:00 10/15/16 12:00 10/15/16 12:00 10/15/16 12:00 10/15/16 12:00 Laboratory Results 10/13/16 04:50 10/14/16 05:53 10/14/16 10/15/16 10/16/16 05:59 05:59 05:59 Intake Total 2654 2194.5 Output Total 4900 4125 450 Balance -2246 -1930.5 -450 PT 14.4 SEC (12.0-15.0) 10/13/16 04:50 INR 1.13 (0.83-1.16) 10/13/16 04:50 ICD10 Worksheet Patient Problems: Problems Problem Status Onset Small bowel obstruction Acute Abdominal pain Acute Acute abdominal pain Acute Acute cholecystitis Acute C. difficile diarrhea Acute 12/10/15 Fever Acute Gastric adenocarcinoma Acute Jaundice Acute Small bowel obstruction Acute Small bowel obstruction due to adhesions Acute
[2016-10-15] MEDS: TPN W/ FAMOTIDINE 1 EA BAG IV SCH (20:34)
[2016-10-16] MEDS: ONDANSETRON 4 MG/2 ML VIAL IVP PRN ×2 (00:23→04:12)
[2016-10-16 04:52] LABS: INR 1.11 (0.83-1.16); PROTIME(PATIENT) 14.2 SEC (12.0-15.0)
[2016-10-16 05:07] LABS: % IMMATURE GRANULYOCYTES 0.7 % (0.0-1.1); ABSOLUTE IMMATURE GRANULOCYTES 0.04 10^3/uL (0.00-0.10); ADD DIFF? NO; ADD MORPH? NO; ADD SCAN? YES; FRAGMENT RBC FLAG 0 (0-99); HEMATOCRIT 32.8 % (40.0-51.0); HEMOGLOBIN 11.2 g/dL (13.7-17.5); LEFT SHIFT FLG 0 (0-99); LIPEMIA HEMOLYSIS FLAG 90 (0-99); MEAN CELL HEMOGLOBIN CONCENTR. 34.1 g/dL (32.4-36.7); MEAN CELL VOLUME 99.7 fL (81.5-99.8); MEAN PLATELET VOLUME 10.8 fL (8.7-11.7); PLATELET CLUMPS FLAG 0 (0-99); PLATELET COUNT 217 10^3/uL (150-400); RED BLOOD CELL COUNT 3.29 10^6/uL (4.40-6.38); RED CELL DISTRIBUTION WIDTH 12.3 % (11.5-15.2)
[2016-10-16 05:13] LABS: ATYPICAL LYMPHOCYTE FLAG 280 (0-99)
[2016-10-16 05:18] LABS: ALANINE AMINOTRANSFERASE 54 IU/L (21-72); ALBUMIN 2.4 g/dL (3.5-5.0); ALKALINE PHOSPHATASE 165 IU/L (38-126); ANION GAP 6 mEq/L (8-16); ASPARTATE AMINOTRANSFERASE 130 IU/L (17-59); BILIRUBIN,TOTAL 0.7 mg/dL (0.1-1.4); CARBON DIOXIDE 29 mEq/l (22-31); CHLORIDE 105 mEq/L (97-110); CREATININE 0.5 mg/dL (0.7-1.3); GLOMERULAR FILTRATION RATE > 60; GLUCOSE 110 mg/dL (70-100); MAGNESIUM 1.9 mg/dL (1.6-2.3); POTASSIUM 3.9 mEq/L (3.5-5.2); SODIUM 140 mEq/L (134-144); TOTAL PROTEIN 5.9 g/dL (6.3-8.2); TRIGLYCERIDE 56 mg/dL (40-150)
[2016-10-16 05:33] LABS: SCAN NEGATIVE
[2016-10-16] MEDS: HEPARIN 5,000 UNIT/0.5 ML SYR SC SCH (08:31)
[2016-10-16] MEDS ORDERED: GADOBUTROL 10 ML VIAL IVP ONE (12:17)
[2016-10-16] MEDS: HYDROCODONE/APAP 5/325 TAB PO PRN ×3 (12:59→21:10)
--- NOTE | 2016-10-16 18:28 | SOAPPROG ---
SOAP Progress Note Assessment/Plan: Assessment: Plan: Subjective: vss, af abd soft no further stool. advance to full liq in am. Objective: Vital Signs Temp Pulse Resp BP Pulse Ox 36.6 C 57 L 16 139/80 H 95 10/16/16 15:39 10/16/16 15:39 10/16/16 15:39 10/16/16 15:39 10/16/16 15:39 Laboratory Results 10/16/16 04:30 10/16/16 04:30 10/15/16 10/16/16 10/17/16 05:59 05:59 05:59 Intake Total 2194.5 2999 1890 Output Total 4125 1900 1070 Balance -1930.5 1099 820 PT 14.2 SEC (12.0-15.0) 10/16/16 04:30 INR 1.11 (0.83-1.16) 10/16/16 04:30 ICD10 Worksheet Patient Problems: Problems Problem Status Onset Small bowel obstruction Acute Abdominal pain Acute Acute abdominal pain Acute Acute cholecystitis Acute C. difficile diarrhea Acute 12/10/15 Fever Acute Gastric adenocarcinoma Acute Jaundice Acute Small bowel obstruction Acute Small bowel obstruction due to adhesions Acute
[2016-10-16] MEDS: ENOXAPARIN 40 MG/0.4 ML SYR SC SCH (21:09)
[2016-10-16] MEDS: TPN W/ FAMOTIDINE 1 EA BAG IV SCH (21:10)
[2016-10-17] MEDS: HYDROCODONE/APAP 5/325 TAB PO PRN ×4 (03:28→20:10)
[2016-10-17] MEDS: ONDANSETRON 4 MG/2 ML VIAL IVP PRN ×2 (04:35→20:16)
[2016-10-17] MEDS ORDERED: MAGNESIUM HYDROXIDE 30 ML UDCUP PO ONE ×2 (06:56→10:00)
--- NOTE | 2016-10-17 06:58 | SOAPPROG ---
SOAP Progress Note Assessment/Plan: Assessment: Plan: Subjective: vss,af abd soft still with neck pain. sounds likea c6 radiculopathy. will work on mri with sedation if this persists or worsens. no flatus. on full liq diet. will give mom today. Objective: Vital Signs Temp Pulse Resp BP Pulse Ox 36.7 C 57 L 16 126/68 H 95 10/17/16 04:35 10/17/16 04:35 10/17/16 04:35 10/17/16 04:35 10/17/16 04:35 Laboratory Results 10/16/16 04:30 10/16/16 04:30 10/16/16 10/17/16 10/18/16 05:59 05:59 05:59 Intake Total 2999 1940 Output Total 1900 1770 Balance 1099 170 PT 14.2 SEC (12.0-15.0) 10/16/16 04:30 INR 1.11 (0.83-1.16) 10/16/16 04:30 ICD10 Worksheet Patient Problems: Problems Problem Status Onset Small bowel obstruction Acute Abdominal pain Acute Acute abdominal pain Acute Acute cholecystitis Acute C. difficile diarrhea Acute 12/10/15 Fever Acute Gastric adenocarcinoma Acute Jaundice Acute Small bowel obstruction Acute Small bowel obstruction due to adhesions Acute
--- NOTE | 2016-10-17 13:18 | GCON ---
[f rep st] CONSULTATION ONCOLOGY CONSULTATION DATE OF CONSULTATION: 10/17/2016 REFERRING PHYSICIAN: Vinny Cuevas MD OUTPATIENT ONCOLOGIST: Marija Connolly MD. REASON FOR CONSULTATION: Recurrent small-bowel carcinoma. 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 He was diagnosed in 2011 with stage II gastric cancer which w as discovered as a result of GI bleeding. He received 2 weeks of radiation therapy followed by neoa djuvant FOLFOX and a total gastrectomy. In November 2015, he presented with a small-bowel obstruction an d was found to have a well-differentiated adenocarcinoma of the ileum measuring 1.8 cm. Ultimately 1 node was found to be positive and he received additional cycles of FOLFOX chemotherapy, completed in July 2016. He began to develop some crampy abdominal pain and ultimately presented to the [facility] in late September with radiographic evidence of a small-bowel obstruction. There was no evident t umor on the scan. Dr. Cuevas took him to the operating room on October 11. I do not have the op erative report, but apparently it showed peritoneal carcinomatosis. Two biopsies were consistent wi th adenocarcinoma. He underwent bypass of the obstructed areas with primary anastomosis. He is hav ing a slow postoperative recovery. He is on a full liquid diet but has had poor caloric intake and therefore is also receiving TPN. He is not passing any flatus. He has not had any vomiting. He re ports some new pain in the right aspect of the neck which has been present for a day or so. PAST MEDICAL HISTORY: 1. Myocardial infarction 2011. 2. Stage II gastric cancer as described above. 3. History of celiac disease. 4. History of hepatitis B. CURRENT MEDICATIONS: Lovenox and TPN. ALLERGIES: Penicillin. FAMILY HISTORY: Noncontributory. He had negative multi-gene panel testing through our genetic coun selor. SOCIAL HISTORY: He is a nonsmoker, nondrinker. Lives with his . REVIEW OF SYSTEMS: Aside from pertinent positives mentioned in HPI, 14-point review of systems nega tive. PHYSICAL EXAMINATION: VITAL SIGNS: Temperature is 36.6, blood pressure 130/76, heart rate 62, oxyg en saturation 94% on room air. GENERAL: He was a cachectic-appearing man who is moderately uncomfo rtable. HEENT: Sclerae anicteric. Oropharynx is clear. NECK: Supple. No lymphadenopathy. LUNG S: Clear to auscultation bilaterally. CARDIAC: Regular rate and rhythm. No murmurs, gallops, rub s. ABDOMEN: Quiet bowel sounds. EXTREMITIES: Without edema. NEUROLOGIC: Alert and oriented x3. Strength and sensation were grossly intact. LABORATORY DATA: White count 5.79, hemoglobin 11.2, platelets of 217. Sodium 140, potassium 3.9, c hloride 105, bicarb 29, BUN of 13, creatinine 0.5. AST 130, ALT is 54, alk phos 165, total protein 5.9, albumin 2.4. IMPRESSION: The patient unfortunately has a peritoneal carcinomatosis due to recurrence of a small bowel tumor. He is having a slow postoperative recovery. Ideally, we would defer chemotherapy or o ther systemic therapy until 4-6 weeks after surgery. His tumor is micro satellite stable and is annalee d-type for KRAS and BRAF mutations. I will defer discussion of potential systemic therapies to Dr. Connolly. Dr. Cuevas has tried to order a cervical MRI to evaluate the patient's neck pain but he has not b een able to lie flat. This may be musculoskeletal but it could also be due to metastatic disease. If his pain is under better control, we may be able to complete that imaging. In any event, he shou ld likely have a PET-CT scan once he is discharged to document adequately the status of disease. We will continue to follow the patient with you closely while he is in the hospital. /[id number]/MODL
[2016-10-17] MEDS: ENOXAPARIN 40 MG/0.4 ML SYR SC SCH (20:16)
[2016-10-17] MEDS: TPN W/ FAMOTIDINE 1 EA BAG IV SCH (21:22)
[2016-10-18] MEDS: HYDROCODONE/APAP 5/325 TAB PO PRN ×5 (02:45→22:02)
[2016-10-18 06:02] LABS: ANION GAP 7 mEq/L (8-16); CALCIUM 8.1 mg/dL (8.5-10.4); CARBON DIOXIDE 30 mEq/l (22-31); CHLORIDE 102 mEq/L (97-110); CREATININE 0.6 mg/dL (0.7-1.3); GLOMERULAR FILTRATION RATE > 60; GLUCOSE 100 mg/dL (70-100); POTASSIUM 4.8 mEq/L (3.5-5.2); SODIUM 139 mEq/L (134-144)
[2016-10-18] MEDS: ONDANSETRON 4 MG/2 ML VIAL IVP PRN ×2 (06:45→20:37)
--- NOTE | 2016-10-18 13:17 | SOAPPROG ---
SOAP Progress Note Assessment/Plan: Assessment:no overnight issues. no pain-controlled with [place]. no flatus. min nausea. hungry. AFSS. comfortable. abd min -distended. incision clean. slow progress. ok to adv diet as able. cont TPN until better po. high risk for recurrent SBO. Plan: 10/15/16 07:05 10/18/16 13:15 Objective: Vital Signs Temp Pulse Resp BP Pulse Ox 36.8 C 61 16 105/82 H 94 10/18/16 08:00 10/18/16 08:00 10/18/16 08:00 10/18/16 08:00 10/18/16 08:00 Laboratory Results 10/16/16 04:30 10/18/16 05:25 10/17/16 10/18/16 10/19/16 05:59 05:59 05:59 Intake Total 1940 4033 751 Output Total 1770 1375 450 Balance 170 2658 301 PT 14.2 SEC (12.0-15.0) 10/16/16 04:30 INR 1.11 (0.83-1.16) 10/16/16 04:30 ICD10 Worksheet Patient Problems: Problems Problem Status Onset Small bowel obstruction Acute Abdominal pain Acute Acute abdominal pain Acute Acute cholecystitis Acute C. difficile diarrhea Acute 12/10/15 Fever Acute Gastric adenocarcinoma Acute Jaundice Acute Small bowel obstruction Acute Small bowel obstruction due to adhesions Acute
[2016-10-18] MEDS: MAGNESIUM HYDROXIDE 30 ML UDCUP PO PRN (15:34)
--- NOTE | 2016-10-18 15:52 | SOAPPROG ---
SOAP Progress Note Assessment/Plan: Assessment: 1. Recurrent small bowel adenocarcinoma 2. Bowel obstruction s/p bypass w/ primary anastamosis Slow improvement. Plan: - continue TPN - continue supportive care - no plans for chemo at this time given recent surgery 10/18/16 15:51 Subjective: tolerating clears. still no flatus or BM. Objective: exam: cachectic, NAD lUngs CTAB CV RRR no MGr Abd: absent BS. mild distension. nontender. Vital Signs Temp Pulse Resp BP Pulse Ox 36.8 C 61 16 105/82 H 94 10/18/16 08:00 10/18/16 08:00 10/18/16 08:00 10/18/16 08:00 10/18/16 08:00 Laboratory Results 10/16/16 04:30 10/18/16 05:25 10/17/16 10/18/16 10/19/16 05:59 05:59 05:59 Intake Total 1940 4033 751 Output Total 1770 1375 850 Balance 170 2658 -99 PT 14.2 SEC (12.0-15.0) 10/16/16 04:30 INR 1.11 (0.83-1.16) 10/16/16 04:30 ICD10 Worksheet Patient Problems: Problems Problem Status Onset Small bowel obstruction Acute Abdominal pain Acute Acute abdominal pain Acute Acute cholecystitis Acute C. difficile diarrhea Acute 12/10/15 Fever Acute Gastric adenocarcinoma Acute Jaundice Acute Small bowel obstruction Acute Small bowel obstruction due to adhesions Acute
[2016-10-18] MEDS: ENOXAPARIN 40 MG/0.4 ML SYR SC SCH (20:37)
[2016-10-18] MEDS: TPN W/ FAMOTIDINE 1 EA BAG IV SCH (20:37)
[2016-10-19] MEDS: HYDROCODONE/APAP 5/325 TAB PO PRN ×5 (02:07→23:49)
[2016-10-19 06:04] LABS: POTASSIUM 4.7 mEq/L (3.5-5.2)
[2016-10-19] MEDS: MAGNESIUM HYDROXIDE 30 ML UDCUP PO PRN (10:20)
[2016-10-19] MEDS: KETOROLAC 15 MG/1 ML SDV IVP PRN (15:37)
--- NOTE | 2016-10-19 19:33 | SOAPPROG ---
SOAP Progress Note Assessment/Plan: Assessment:no overnight issues. + flatus. tolerating clears and eggs. pain controlled with [place] - still with neck pain. AVSS. comfortable. abd min - distended. incision clean. no erythema. slow progress. diet as able. stop TPN tomorrow. high risk for recurrent SBO. trial toradol for neck pain. Plan: 10/15/16 07:05 10/18/16 13:15 10/19/16 19:32 Objective: Vital Signs Temp Pulse Resp BP Pulse Ox 36.8 C 60 16 99/69 L 96 10/19/16 16:26 10/19/16 16:26 10/19/16 16:26 10/19/16 16:26 10/19/16 16:26 Laboratory Results 10/16/16 04:30 10/19/16 05:55 10/18/16 10/19/16 10/20/16 05:59 05:59 05:59 Intake Total 4033 3064 Output Total 1375 850 Balance 2658 2214 PT 14.2 SEC (12.0-15.0) 10/16/16 04:30 INR 1.11 (0.83-1.16) 10/16/16 04:30 ICD10 Worksheet Patient Problems: Problems Problem Status Onset Small bowel obstruction Acute Abdominal pain Acute Acute abdominal pain Acute Acute cholecystitis Acute C. difficile diarrhea Acute 12/10/15 Fever Acute Gastric adenocarcinoma Acute Jaundice Acute Small bowel obstruction Acute Small bowel obstruction due to adhesions Acute
[2016-10-19] MEDS: TPN W/ FAMOTIDINE 1 EA BAG IV SCH (21:13)
[2016-10-19] MEDS: ENOXAPARIN 40 MG/0.4 ML SYR SC SCH (21:13)
[2016-10-19] MEDS: ONDANSETRON 4 MG/2 ML VIAL IVP PRN (23:53)
[2016-10-20] MEDS: HYDROCODONE/APAP 5/325 TAB PO PRN ×4 (04:07→22:34)
[2016-10-20] MEDS: KETOROLAC 15 MG/1 ML SDV IVP PRN ×2 (06:26→13:27)
[2016-10-20] MEDS: MAGNESIUM HYDROXIDE 30 ML UDCUP PO PRN (13:27)
--- NOTE | 2016-10-20 14:23 | SOAPPROG ---
SOAP Progress Note Assessment/Plan: Assessment: 1. Recurrent small bowel adenocarcinoma 2. Bowel obstruction s/p bypass w/ primary anastamosis Slow improvement. Plan: - continue TPN, but if he continues to eat a normal diet, can discontinue - continue supportive care - neck pain - can consider MRI but pt will have difficulty lying flat. OK to monitor for now as stable and no weakness noted - no plans for chemo at this time given recent surgery 10/18/16 15:51 10/20/16 14:21 Subjective: still has neck pain, unable to lie flat. eating a full diet. not much appetite , but no abd pain. Objective: exam unchanged Vital Signs Temp Pulse Resp BP Pulse Ox 36.4 C 65 16 119/77 96 10/20/16 08:00 10/20/16 08:00 10/20/16 08:00 10/20/16 08:00 10/20/16 08:00 Laboratory Results 10/16/16 04:30 10/19/16 05:55 10/19/16 10/20/16 10/21/16 05:59 05:59 05:59 Intake Total 3064 926 Output Total 850 Balance 2215 926 PT 14.2 SEC (12.0-15.0) 10/16/16 04:30 INR 1.11 (0.83-1.16) 10/16/16 04:30 ICD10 Worksheet Patient Problems: Problems Problem Status Onset Small bowel obstruction Acute Abdominal pain Acute Acute abdominal pain Acute Acute cholecystitis Acute C. difficile diarrhea Acute 12/10/15 Fever Acute Gastric adenocarcinoma Acute Jaundice Acute Small bowel obstruction Acute Small bowel obstruction due to adhesions Acute
[2016-10-20] MEDS ORDERED: ALTEPLASE 2 MG VIAL IVP ONE ×2 (14:30→17:30)
[2016-10-20] MEDS: oxyCODONE IR 5 MG TAB PO PRN (15:21)
--- NOTE | 2016-10-20 15:35 | SOAPPROG ---
SOAP Progress Note Assessment/Plan: Assessment: Plan: Subjective: vss,af no stools. some flatus abd soft try tomorrow to get mri neck Objective: Vital Signs Temp Pulse Resp BP Pulse Ox 36.4 C 65 16 119/77 96 10/20/16 08:00 10/20/16 08:00 10/20/16 08:00 10/20/16 08:00 10/20/16 08:00 Laboratory Results 10/16/16 04:30 10/19/16 05:55 10/19/16 10/20/16 10/21/16 05:59 05:59 05:59 Intake Total 3064 926 Output Total 850 Balance 2214 926 PT 14.2 SEC (12.0-15.0) 10/16/16 04:30 INR 1.11 (0.83-1.16) 10/16/16 04:30 ICD10 Worksheet Patient Problems: Problems Problem Status Onset Small bowel obstruction Acute Abdominal pain Acute Acute abdominal pain Acute Acute cholecystitis Acute C. difficile diarrhea Acute 12/10/15 Fever Acute Gastric adenocarcinoma Acute Jaundice Acute Small bowel obstruction Acute Small bowel obstruction due to adhesions Acute
[2016-10-20] MEDS: ONDANSETRON 4 MG/2 ML VIAL IVP PRN (17:22)
[2016-10-20] MEDS ORDERED: GABAPENTIN 100 MG CAP PO SCH ×2 (19:00→21:00)
[2016-10-20] MEDS: ENOXAPARIN 40 MG/0.4 ML SYR SC SCH (20:23)
[2016-10-21] MEDS: HYDROCODONE/APAP 5/325 TAB PO PRN ×3 (02:07→10:20)
[2016-10-21] MEDS: KETOROLAC 15 MG/1 ML SDV IVP PRN ×2 (02:08→17:47)
[2016-10-21 06:32] VITALS: TEMP 97.8
[2016-10-21 08:54] VITALS: RESP 16
--- NOTE | 2016-10-21 09:39 | SOAPPROG ---
SOAP Progress Note Assessment/Plan: Assessment: 1.) Small intestine primary malignancy, S/P resection for SBO 2.) Neck pain - stable. MRI ordered. 3.) Nutritional status- increasing oral / caloric intake. Plan: 1.) Advance diet. monitor GI function. Await MRI of neck, encourage ambulation. 10/21/16 09:39 Subjective: Feeling better with increased oral intake and better pain control. Ambulating without pain/distress. No new Upper extremity sx. Less neck pain. Objective: Pt alert and conversant, in NAD. at bedside. HEENT- anicteric, no oral lesions Neck- supple Chest- Left mediport is NT/accessed, lungs clear anteriorly CVS- RSR, no extra HS ABD- soft, NT, BS+, incision is dry/intact. Quique in place and not erythematous EXT- without edema Labs as noted here: Vital Signs Temp Pulse Resp BP Pulse Ox 36.6 C 62 16 115/75 95 10/21/16 08:00 10/21/16 08:00 10/21/16 08:00 10/21/16 08:00 10/21/16 08:00 Laboratory Results 10/16/16 04:30 10/19/16 05:55 10/20/16 10/21/16 10/22/16 05:59 05:59 05:59 Intake Total 926 637 Balance 926 637 PT 14.2 SEC (12.0-15.0) 10/16/16 04:30 INR 1.11 (0.83-1.16) 10/16/16 04:30 ICD10 Worksheet Patient Problems: Problems Problem Status Onset Small bowel obstruction Acute Abdominal pain Acute Acute abdominal pain Acute Acute cholecystitis Acute C. difficile diarrhea Acute 12/10/15 Fever Acute Gastric adenocarcinoma Acute Jaundice Acute Small bowel obstruction Acute Small bowel obstruction due to adhesions Acute
[2016-10-21] MEDS: ONDANSETRON 4 MG/2 ML VIAL IVP PRN (10:20)
[2016-10-21] MEDS ORDERED: GADOBUTROL 10 ML VIAL IVP ONE (11:03)
[2016-10-21 12:29] VITALS: BP 104/67; PULSE 56; O2SAT 93
--- NOTE | 2016-10-21 15:57 | GDS ---
[f rep st] DISCHARGE SUMMARY HOSPITAL COURSE: Patient was admitted with abdominal pain, possible bowel obstruction. He underwent exploratory laparotomy, when it did not improve with NG suction, and this showed diffuse studding of the peritoneal surfaces with encasement of the bowel in the right upper quadrant. This could not be safely dissected and removed. Therefore an enteroenterostomy was done from some terminal ileum to the transverse colon and then a closed loop area in the right upper quadrant was also brought to the small bowel, creating enteroenterostomy. He recovered slowly, but at the time of discharge was tolerating a diet, passing flatus and stools. He also developed a severe right neck and arm pain. An MRI prior to discharge shows no metastatic disease, but significant neural canal narrowing in the C-spine congenital as well as more significant narrowing of the C6-7 nerve root, consistent with his symptoms. I have discharged him home on Oxy IR as well as gabapentin and discussed the possibility of getting a neurosurgical consultation as an outpatient should this pain persist. /[id number]/MODL MTDDiamond
[2016-10-21] MEDS ORDERED: BACITRACIN OINTMENT 1 PACKET TP ONE (17:33)
[2016-10-21] MEDS: oxyCODONE IR 5 MG TAB PO PRN (17:47)
--- NOTE | 2016-11-22 15:28 | GOP ---
[f rep st] OPERATIVE REPORT DATE OF OPERATION: SURGEON: Vinny Cuevas MD PREOPERATIVE DIAGNOSIS: Small-bowel obstruction. POSTOPERATIVE DIAGNOSIS: Small-bowel obstruction. PROCEDURE PERFORMED: Exploratory laparotomy, ileal colostomy, ileal ileostomy. FINDINGS: INDICATIONS: The patient is a 71-year-old male. DESCRIPTION OF PROCEDURE: General anesthetic. The abdomen scrubbed with ChloraPrep, draped in the usual sterile fashion. A midline incision made. Dense, intraabdominal adhesions were identified. There was diffuse studding of the peritoneal surfaces with cancer. The small bowel was stuck in the right upper quadrant, and this could not be safely dissected. Therefore, some unobstructed termina l ilium was anastomosed to the transverse colon, creating an ileal colostomy to divert much of the o bstruction. There was still a closed-loop, however, of small bowel that dove in and came out of the mass in the right upper quadrant, which was clearly malignant. This was decompressed by doing a si de-to-side enteroenterostomy, so in total, 2 anastomoses were done. This seemed to relieve all obst ructed areas. Several peritoneal studs were submitted as specimens to document the nature of the ca rcinomatosis. Then the alba was then closed with a running #1 PDS in either direction. Skin closed with deepika. The NG tube was confirmed to be in the stomach. Patient tolerated the procedure wel l. DATE OF THE PROCEDURE: Unclear. Perhaps 10/10/2016 or 10/11/2016. SURGEON: Vinny Cuevas MD /[id number]/[id number]
== END 2016-10-21 18:12 | disposition home or self-care (01) | DRG 331 ==
LOC: F1N 23:23
PROVIDERS: ADMIT Surgery; ATTEND Surgery
PROC: 0D1B0ZL Bypass Ileum to Transverse Colon, Open Approach (ICD-10-PCS; principal; 2016-10-10 17:30)
DX: C78.4 Secondary malignant neoplasm of small intestine (principal); M48.02 Spinal stenosis, cervical region; I25.2 Old myocardial infarction; Z85.09 Personal history of malignant neoplasm of other digestive organs; Z80.1 Family history of malignant neoplasm of trachea, bronchus and lung; Z88.0 Allergy status to penicillin
CPT/HCPCS: 96374; 97161-GP; 97165-GO; 97530-GO; 97535-GO; A9585; G8978-GP-CH; G8979-GP-CH; G8980-GP-CH; G8987-GO-CJ; G8988-GO-CI; G8989-GO-CI; J1100; J1170; J1335; J1642; J1650; J1885; J2001; J2250; J2370; J2405; J2704; J2997; J3010; Q9967

== ENCOUNTER 2016-10-30 14:09 | Observation (INO) | payer OTHER ==
[2016-10-30] MEDS ORDERED: diphenhydrAMINE 25 MG CAP PO PRN (15:10)
[2016-10-30] MEDS ORDERED: ONDANSETRON DISINTEGRATING 4 MG TAB PO PRN (15:10)
[2016-10-30] MEDS ORDERED: POLYETHYLENE GLYCOL 3350 17 GM PKT PO PRN (15:10)
[2016-10-30] MEDS ORDERED: DIAZEPAM 10 MG/2 ML SYR IVP PRN (15:10)
[2016-10-30] MEDS ORDERED: BISACODYL 10 MG SUPP PR PRN (15:10)
[2016-10-30] MEDS ORDERED: MAGNESIUM HYDROXIDE 30 ML UDCUP PO PRN (15:10)
[2016-10-30] MEDS ORDERED: ONDANSETRON 4 MG/2 ML VIAL IVP PRN (15:10)
[2016-10-30] MEDS ORDERED: ACETAMINOPHEN 325 MG TAB PO PRN (15:10)
[2016-10-30] MEDS ORDERED: LACTULOSE 20 GM/30 ML UDCUP PO PRN (15:10)
[2016-10-30] MEDS ORDERED: NS W/ 20 KCl/L 1,000 ML IV SCH (15:15)
[2016-10-30] MEDS ORDERED: REMIFENTANIL HCL 1 MG VIAL ONE ×3 (15:30)
[2016-10-30] MEDS ORDERED: PROPOFOL/EMULSION 500 MG/50 ML BOTTLE IV ONE ×3 (15:30→15:31)
[2016-10-30] MEDS ORDERED: ceFAZolin 2 GM/DEXTROSE 100 ML IV ONE (15:30)
[2016-10-30] MEDS ORDERED: LR 1,000 ML IV ONE (15:32)
[2016-10-30] MEDS ORDERED: LIDOCAINE 1% 5 ML SDV ID PRN (15:32)
[2016-10-30] MEDS ORDERED: SUCCINYLCHOLINE CHLORIDE*ANESTHESIA ONLY*200 MG/10 ML SYR IVP ONE (15:33)
[2016-10-30] MEDS ORDERED: BACITRACIN 50,000 UNITS/10 ML SYR IRR ONE (15:38)
[2016-10-30] MEDS ORDERED: THROMBIN (BOVINE) 20,000 UNIT VIAL TP ONE (15:38)
[2016-10-30] MEDS ORDERED: MIDAZOLAM 2 MG/2 ML VIAL ONE (15:38)
[2016-10-30] MEDS ORDERED: PHENYLEPHRINE HCL 100 MCG/ML SYR ONE (16:07)
[2016-10-30] MEDS ORDERED: DEXAMETHASONE 4 MG/ML VIAL ONE ×2 (16:43)
[2016-10-30] MEDS ORDERED: ONDANSETRON 4 MG/2 ML VIAL ONE (16:43)
[2016-10-30] MEDS ORDERED: HYDROmorphONE/DILAUDID 1 MG/ML SYR ONE (18:01)
[2016-10-30] MEDS: FAMOTIDINE 20 MG/NACL 50 ML IV SCH (19:55)
[2016-10-30] MEDS: oxyCODONE IR 5 MG TAB PO PRN (19:56)
[2016-10-30] MEDS: SENNOSIDES/DOCUSATE SODIUM TAB PO SCH (19:56)
[2016-10-30] MEDS: DIAZEPAM 5 MG TAB PO PRN (21:46)
--- NOTE | 2016-10-30 22:44 | POSTOPPROG ---
Post Op Note Date of Operation: 10/30/16 Surgeon: Joe Enciso [place] Applier: JAVIER Inman PAC Anesthesia: GET(General Endotracheal) Pre-op Diagnosis: cervical stenosis, arm weakness Post-op Diagnosis: cervical stenosis, arm weakness Indication: cervical stenosis, arm weakness Procedure: ACDF C6/7 Inf/Abcess present in the surg proc area at time of surgery?: No EBL: 10cc PA Addendum - Addendum .: S: Denies any pain O: NAD A&Ox3 MAEx4, 5/5 and equal in BUE and BLE. Neck soft, supple no edema A/P 71y/o male s/p ACDF C6/7 -Post op xrays pending -Advance diet as tolerated -PT/OT -Optimize pain management -DVT prophx: TEDs, SCDs, lovenox okay POD3 -Please notify NS with any change in neuro/motor exam.
[2016-10-31] MEDS: oxyCODONE IR 5 MG TAB PO PRN ×4 (00:09→13:34)
--- NOTE | 2016-10-31 05:03 | GOP ---
[f rep st] OPERATIVE REPORT DATE OF OPERATION: 10/30/2016 SURGEON: Joe Enciso MD PROFESSOR OF CHEMISTRY: ESTELA Borja. ANESTHESIA: General. PREOPERATIVE DIAGNOSIS: 1. C6-C7 cervical stenosis with radiculopathy and myelopathy. 2. Treatment refractory to nonoperative intervention. POSTOPERATIVE DIAGNOSIS: 1. C6-C7 cervical stenosis with radiculopathy and myelopathy. 2. Treatment refractory to nonoperative intervention. PROCEDURE PERFORMED: 1. Anterior arthrodesis with approach to C6-C7. 2. C6-C7 diskectomy with bilateral foraminotomies, osteophytectomy and interbody fusion using a 9 mm titanium coated PEEK cage filled with morselized autograft and allograft. 3. Anterior cervical fusion C6-C7 with a WiserTogethertronic 19 mm Zevo plate. 4. Use of intraoperative fluoroscopy, less than 1 hour physician time. 5. Use of neuromonitoring. 6. Use of the operative microscope. FINDINGS: per imaging SPECIMENS: None. ESTIMATED BLOOD LOSS: 10 mL. INDICATIONS: The patient is a 71-year-old gentleman who has evidence of right upper extremity radiculopathy with some triceps weakness and imaging findings of severe stenosis C6-C7. He also had multiple other levels of spondylosis in his neck, but given his current situation with his oncology and treatment, we decided to proceed forth with surgery at the most stenotic level, and likely the most symptomatic for him. He presents now for that surgical intervention. DESCRIPTION OF PROCEDURE: Patient was brought to the operating theater and underwent general endotracheal anesthesia without complications. Venodynes and FRANCOISE hose were placed. His head was maintained supine on the operating table in slight extension. Using lateral fluoroscopy and a spinal needle, we picked our entry point to the C5 through C6 levels. This was marked as a transverse incision on the right side of his neck. All bony processes were inspected and padded. The cervical spine was prepped and draped in the usual sterile surgical fashion. A time-out was completed per protocol and the patient received antibiotics within 1 hour of incision. The incision was taken down initially with a scalpel blade and then using the monopolar, taken down through the subcutaneous tissues to the level of the platysma. The platysma was over-mined in the cranial and caudal directions. A Weitlaner was placed to maintain our exposure. We opened the fibers of the platysma cranially and caudally. Using sharp and blunt dissection, we then traveled in a plane medial to the carotid sheath and lateral to esophagus and trachea to reach the prevertebral fascia. We placed a bayonetted needle into the disk space of C6-C7, which showed a very large ventral osteophyte which was removed with the [place] rongeur. We confirmed our level using lateral fluoroscopy. We elevated the longus coli muscle from the anterior vertebral bodies of C6 and C7 and deep retractors were placed to maintain our exposure. The microscope was brought into field to assist with microscopic dissection and to maintain illumination and magnification. Using a combination of the angled curettes, Kerrison punches, the bur tip on the drill bit, we completed a C6-C7 diskectomy with bilateral foraminotomies and osteophytectomies. We prepared the cartilaginous endplates and measured interbody space. We then placed a 9 mm titanium coated PEEK cage filled with a morselized autograft and allograft into the C6-7 disk space. We removed the [place] pins and drilled down the anterior osteophytes. We secured a 19 mm Medtronic Zevo plate onto the vertebral bodies of C6 and C7. AP and lateral x-rays demonstrated good placement of the hardware. We obtained hemostasis with the bipolar and the wound was irrigated copiously with bacitracin irrigation. The wound was then closed in multiple layers using Vicryl sutures, the deep layers and Dermabond for the skin. The patient's wounds were dressed sterilely. He was then awakened, extubated and taken to recovery room in stable condition. There were no complications and no noted changes on neuromonitoring throughout the procedure. COMPLICATIONS: None. /[id number]/MODL MTDD
[2016-10-31] MEDS: DIAZEPAM 5 MG TAB PO PRN (05:42)
--- NOTE | 2016-10-31 07:27 | NEUSURGPN ---
Assessment/Plan: A/P 71y/o male s/p ACDF C6/7 POD#1 -Post op xrays pending -Advance diet as tolerated -PT/OT -Optimize pain management -DVT prophx: TEDs, SCDs, lovenox okay POD3 -Please notify NS with any change in neuro/motor exam. -Pt seen and discussed with Dr Enciso -Plan for DC to home this afternoon once he has had xrays done and worked with therapies Subjective: Pt resting in bed, states arm pain improved. Swallowing ok with mild difficulty Objective: AAOx3 NAD VSS MAEx4 Motor 5/5 BUE Incision dressed cdi +LT Urinary Catheter in Place: No - Physician Discussed Patient with DrRichy: Zaria Patient Seen by : Zaria Neurosurgery Physical Exam - Vitals, I&O, Labs I and O 10/30/16 10/31/16 11/01/16 05:59 05:59 05:59 Intake Total 1750 Output Total 710 Balance 1040 Weight 59.874 kg Intake: IV Intake (ml) 1000 IV Infused (ml) 750 NS W/ 20 KCl/L 1,000 ml @ 700 75 mls/hr IV CONT KAREEM Rx #:[id number] ceFAZolin 1 GM/DEXTROSE 50 50 ml @ 200 mls/hr IV Q8H KAREEM Rx#:[id number] Output: Urine (ml) 700 Toilet 700 Estimated Blood Loss (ml) 10 Other: Intake Quantity Yes Sufficient Number of Voids Toilet 1 Vital Signs Temp Pulse Resp BP Pulse Ox 36.6 C 58 L 16 114/72 91 L 10/31/16 04:00 10/31/16 04:00 10/31/16 04:00 10/31/16 04:00 10/31/16 04:00 ICD10 Worksheet Patient Problems: Problems Problem Status Onset Abdominal pain Acute Acute abdominal pain Acute Acute cholecystitis Acute C. difficile diarrhea Acute 12/10/15 Fever Acute Gastric adenocarcinoma Acute Jaundice Acute Small bowel obstruction Acute Small bowel obstruction Acute Small bowel obstruction due to adhesions Acute
[2016-10-31 07:43] VITALS: RESP 14
[2016-10-31] MEDS: SENNOSIDES/DOCUSATE SODIUM TAB PO SCH (08:03)
[2016-10-31] MEDS: FAMOTIDINE 20 MG/NACL 50 ML IV SCH (09:06)
[2016-10-31 12:05] VITALS: BP 107/69; PULSE 55; TEMP 97.9; O2SAT 93
== END 2016-10-31 13:50 | disposition home or self-care (01) ==
LOC: F3N 14:09
PROVIDERS: ADMIT Neurological Surgery; ATTEND Neurological Surgery
DX: M47.12 Other spondylosis with myelopathy, cervical region (principal); M47.22 Other spondylosis with radiculopathy, cervical region; M48.02 Spinal stenosis, cervical region; C78.6 Secondary malignant neoplasm of retroperitoneum and peritoneum; E78.5 Hyperlipidemia, unspecified; I25.10 Atherosclerotic heart disease of native coronary artery without angina pectoris; Z95.5 Presence of coronary angioplasty implant and graft
CPT/HCPCS: 22551; 22853; 72040; 76001; 97161; 97165; C1713; G8978; G8979; G8980; G8987; G8988; G8989; J0330; J0690; J1100; J1170; J2250; J2370; J2405; J2704

== ENCOUNTER 2016-11-04 15:53 | Inpatient (IN) | payer OTHER ==
--- NOTE | 2016-11-04 17:15 | EDPHY ---
H & P Stated Complaint: Post op pain unrelieved w/meds;had neck surg last Sunday Source: Patient, Family Exam Limitations: Clinical condition - Personal History Current Tetanus Diphtheria and Acellular Pertussis (TDAP): Yes Tetanus Vaccine Date: spring - Medical/Surgical History Hx Asthma: No Hx Chronic Respiratory Disease: No Hx Diabetes: No Hx Cardiac Disease: Yes Hx Renal Disease: No Hx Cirrhosis: No Hx Alcoholism: No Hx HIV/AIDS: No Hx Splenectomy or Spleen Trauma: No Other PMH: PMH: celiac, Hep B in 1970, stomach ca, ileal ca (finished chemo Jul). PSH: LAD stent placed in 2011-[place], partial gastrectomy 2011, cataract, hernia repair, S/P Ayanna - Social History Smoking Status: Never smoked Time Seen by Provider: 11/04/16 16:25 HPI/ROS: CHIEF COMPLAINT: post-op pain HISTORY OF PRESENT ILLNESS: 71-year-old male presents emergency department with his complaining of pain that is not controlled in his neck status post cervical fusion [address] Enciso. Pt was discharged from the hospital 5 days ago with Gabapentin, Valium, oxycodone. Yesterday the called the doctor's office and they increased his oxycodone from 10 mg q.4 hours to 15 mg q.4 hours. He was increased to 200 mg of gabapentin every 8 hours. reports he continues to complain of pain that is not controlled, he is over sedated and unsteady on his feet. She does not feel he is safe at home. Patient denies fevers, no nausea or vomiting, no new or different pain from surgery just not improving. He denies numbness or weakness or tingling in his arms. He reports most of his pain is in his right trapezius area. REVIEW OF SYSTEMS: A comprehensive 10 point review of systems is otherwise negative aside from elements mentioned in the history of present illness. (Fidelia Youngblood) - Physical Exam Exam: Physical Exam Gen: Awake, drowsy HEENT: PERRL, moist mucous membranes NECK: ROM not tested, no swelling, no cervical adenopathy, right-sided trapezius tenderness to palpation CV: regular rate and regular rhythm PULM: CTAB, no wheezes ABDOMEN: soft, non tender to palpation, BS present NEURO: Neurologically grossly intact EXTREMITIES: normal appearing SKIN: Anterior horizontal cervical incision with no drainage, no erythema, no signs of infection PSYCH: answers questions appropriately. (Fidelia Youngblood) Constitutional: Initial Vital Signs Temperature (C) 36.4 C 11/04/16 16:00 Heart Rate 78 11/04/16 16:00 Respiratory Rate 18 11/04/16 16:00 Blood Pressure 96/73 L 11/04/16 16:00 O2 Sat (%) 97 11/04/16 16:00 O2 Delivery Mode Room Air Allergies/Adverse Reactions: gluten Allergy (Verified 11/04/16 16:10) Abdominal Pain Penicillins Allergy (Verified 11/04/16 16:10) Rash wheat Allergy (Verified 11/04/16 16:10) Abdominal Pain Home Medications: Medication Instructions Recorded Multivitamins [Multivitamin (*)] 1 each PO DAILY 09/19/15 Cholecalciferol Vit D3 [Vitamin D3 6,000 units PO DAILY 10/10/16 2000 units tab (OTC)] Pantoprazole Sodium [Protonix 40mg 40 mg PO BID 10/10/16 (*)] Diazepam [Valium 5 MG (*)] 5 mg PO Q6H PRN 11/04/16 Gabapentin [Neurontin 100 MG (*)] 200 mg PO TID 11/04/16 oxyCODONE IR [Oxycodone Ir (*)] 15 mg PO Q4HRS PRN 11/04/16 Medical Decision Making ED Course/Re-evaluation: 71-year-old male presents with uncontrolled pain after a cervical fusion 6 days ago. Patient's pain medications were increase yesterday and he is more sedated and unsteady on his feet though continues with severe pain. Patient has no neurovascular compromise, no fevers. Patient has normal vital signs, a normal physical exam. I will admit him to the hospital for pain control as his pain is not controlled and he is too sedated on his current pain medication regimen and unsteady on his feet. Patient's does not feel safe with him at home. 520pm I have consulted with Neurosurgery and spoke with Dr. Naya CUEVAS. She will speak with Dr. Brush and call me back to let me know if they will admit or if they want the hospitalist to admit. 545pm- neurosurgery is requesting the hospitalist admit the patient, they will consult on the patient and will place orders for a new pain medication regimen. (Fidelia Youngblood) The patient was evaluated and managed by the physician's clinical project assistant. My cosignature indicates that I reviewed the chart and I agree with the findings and plan of care as documented. I am the secondary supervising physician. ( Vanessa Nunez) Departure - Departure Disposition: [facility] Inpatient Acute Clinical Impression: Postoperative pain Condition: Fair
[2016-11-04] MEDS ORDERED: HYDROCODONE/APAP 5/325 TAB PO PRN (18:11)
[2016-11-04] MEDS ORDERED: HYDROmorphONE/DILAUDID 1 MG/ML SYR IVP PRN (19:32)
[2016-11-04] MEDS ORDERED: ONDANSETRON DISINTEGRATING 4 MG TAB PO PRN (19:32)
[2016-11-04] MEDS ORDERED: BISACODYL 10 MG SUPP PR PRN (19:35)
[2016-11-04] MEDS ORDERED: MAGNESIUM HYDROXIDE 30 ML UDCUP PO PRN (19:35)
[2016-11-04] MEDS ORDERED: LACTULOSE 20 GM/30 ML UDCUP PO PRN (19:35)
--- NOTE | 2016-11-04 19:39 | PDGENHP ---
History and Physical - Chief Complaint Acute neck pain - History of Present Illness Primary oncologist: Dr. Connolly Primary neurosurgeon: Dr. Enciso Primary general surgeon: Dr. Cuevas HPI: 71-year-old male presenting with acute neck pain characterized as sharp, located in the posterior neck and radiating into the right superior posterior shoulder with associated somnolence and gait imbalance. Onset of symptoms was following his recent cervical spine fusion and duration has been persistent thereafter. The pain was reportedly mild to moderately controlled at time of discharge on 10/31 and has been more difficult to manage thereafter at home. His contacted the neurosurgery practice and they recommended up titration of his oxycodone to 15 mg as needed. The patient initiated this dosage on the day prior to this presentation and has somewhat alleviated his pain. That being said, since up titrating his oxycodone immediate release, he has been experiencing an exacerbation of his somnolence which has resulted in gait imbalance and concerns regarding fall risk at home. He has otherwise been adherent to his other medications and is taking his Valium 5 mg twice daily as well as and up titrated dose of gabapentin 200 mg 3 times daily. He reports that he has been having bowel movements with use of laxatives. He denies any urinary symptoms, denies any other infectious symptoms. He has been eating and drinking lower madonna than usual secondary to discomfort located in the posterior neck with swallowing, exacerbated by sitting. Consequently his oral intake has been limited to the times when he is able to ambulate or stand. History Information - Allergies/Home Medication List Allergies/Adverse Reactions: gluten Allergy (Verified 11/04/16 16:10) Abdominal Pain Penicillins Allergy (Verified 11/04/16 16:10) Rash wheat Allergy (Verified 11/04/16 16:10) Abdominal Pain Home Medications: Multivitamins [Multivitamin (*)] 1 each PO DAILY 09/19/15 [Last Taken 10/27/16] Cholecalciferol Vit D3 [Vitamin D3 2000 units tab (OTC)] 6,000 units PO DAILY [Last Taken 10/27/16] Pantoprazole Sodium [Protonix 40mg (*)] 40 mg PO BID 10/10/16 [Last Taken 07:30] Diazepam [Valium 5 MG (*)] 5 mg PO Q6H PRN 11/04/16 [Last Taken 11/04/16] Gabapentin [Neurontin 100 MG (*)] 200 mg PO TID 11/04/16 [Last Taken 11/04/16] oxyCODONE IR [Oxycodone Ir (*)] 15 mg PO Q4HRS PRN 11/04/16 [Last Taken 11/04/16 ] I have personally reviewed and updated: family history, medical history, social history, surgical history - Past Medical History coronary artery disease (With myocardial infarction in 2011) Additional medical history: Gastric adenocarcinoma (dx 2011, s/p resection, in remission). 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 celiac disease. h/o portal vein thrombosis 09/2015. h/o c diff colitis. Hepatitis b virus. CAD s/p ME in 12/2011. Cervical stenosis with radiculopathy and myelopathy on the right side - Surgical History Additional surgical history: cholecystectomy. Billroth II gastric resection. Small bowel resection. hernia repair. b/l cataract repair. Recent C6-C7 fusion - Family History Additional family history: F: lung ca. M: DM2 - Social History Smoking Status: Never smoked Alcohol Use: Rarely Drug Use: None Additional social history: Patient lives with his , is independent in all ADLs, has recently been bed-bound Review of Systems ROS: 10pt was reviewed & negative except for what was stated in HPI & below Constitutional: Reports: weakness Muscolosketal: Reports: neck pain, other (Right shoulder pain) Neurological: Reports: other (Somnolent) Physical Exam Temp Pulse Resp BP Pulse Ox 36.5 C 63 16 105/76 97 11/04/16 18:33 11/04/16 19:08 11/04/16 19:08 11/04/16 18:33 11/04/16 19:08 Constitutional: no apparent distress, chronically ill appearing, uncomfortable, cachectic Eyes: anicteric sclera, EOMI, other (Somewhat constricted pupils bilaterally) Ears, Nose, Mouth, Throat: hearing normal, other (Tacky mucous membranes) Cardiovascular: systolic murmur (2/6 at the sternum), No irregularly irregular, No tachycardia, No edema Respiratory: no respiratory distress, no rales or rhonchi, clear to auscultation Gastrointestinal: normoactive bowel sounds, soft, non-tender abdomen, no palpable masses Skin: other (Mild erythema around the anterior neck surgical site, no induration , no tenderness) Musculoskeletal: other (Mild tenderness to palpation over the posterior neck and right superior posterior trapezius, full range of motion right shoulder without any pain elicited) Neurologic: AAOx3, sensation intact bilaterally, No weakness (Motor strength 5/ 5 right upper extremity) Psychiatric: not anxious, not encephalopathic, thought process linear, flat affect, other (Lethargic but arousable) Assessment & Plan Assessment: 71-year-old male presenting with acute postoperative neck pain and subsequent somnolence in the setting of opiate and benzodiazepine pain medications Plan: 1. Somnolence. Acute, new problem this provider, further workup is indicated. Most likely secondary to the side effects of oxycodone, Valium, gabapentin. That being said, his poor oral intake recently raises concerns regarding hepatic or renal clearance of these medications and consequently a complete metabolic panel should be performed. Also, given his recent surgery, should get CBC to ensure he does not have leukocytosis which may indicate underlying infection. -will reduced dosage of gabapentin to 100 mg in the morning, 100 mg in the afternoon, 300 mg at night -will discontinue the Valium as he is not experiencing any muscle fasciculations -will change from oxycodone to Dilaudid given that he tolerated Dilaudid previously and has not experienced appreciable benefit from moderate strength oxycodone -initiate Dilaudid dose range 1-4 mg as needed, IV for breakthrough -initiate bowel regimen -PT, OT eval, patient may require jail facility moving forward 2. Neck pain. Most likely secondary to postoperative pain, adjust pain medications as outlined above -x-ray demonstrates a stable cervical spine positioning -discussed with Fidelia Youngblood, emergency department provider, she has reported to me that the neurosurgery service has been contacted and they will actively consult in this patient's care 3. Gastric cancer with peritoneal carcinomatosis. Review of outside records including 10/17/[address] Johnny Maloney, outlined that patient will most likely be pursuing additional chemotherapy and this is to be discussed with his primary oncologist this coming week -patient currently not demonstrating any signs of recurrent small bowel obstruction 4. Severe protein calorie malnutrition. Evidenced by temporal muscle wasting and cachexia, most likely secondary to a combination of active malignancy as well as recent poor oral intake secondary to pain with swallowing -reviewed outside records including 10/31/2016 progress note by America Gooden, reporting that the patient's swallow mechanism resulted in mild pain but was doing okay -get dietary consult, supplements, improved pain control 5. Coronary artery disease. Chronic, continue home medications once reconciled, currently off of anti-platelet medication given his recent surgery Diet. Regular as tolerated Prophylaxis. High risk patient, Lovenox 40 Code. Full at present Disposition. Anticipated discharge is 11/05/2016, pending further workup and stabilization of his pain and somnolence as outlined above. If patient requires additional workup or ongoing use of IV pain medications, then he should be upgraded to inpatient admission status by tomorrow's hospitalist.
[2016-11-04] MEDS ORDERED: NS 1,000 ML IV SCH (19:45)
[2016-11-04 19:48] LABS: % IMMATURE GRANULYOCYTES 0.3 % (0.0-1.1); ABSOLUTE IMMATURE GRANULOCYTES 0.02 10^3/uL (0.00-0.10); ADD DIFF? NO; ADD MORPH? NO; ADD SCAN? NO; ATYPICAL LYMPHOCYTE FLAG 80 (0-99); FRAGMENT RBC FLAG 0 (0-99); HEMATOCRIT 33.7 % (40.0-51.0); HEMOGLOBIN 11.1 g/dL (13.7-17.5); LEFT SHIFT FLG 0 (0-99); LIPEMIA HEMOLYSIS FLAG 80 (0-99); MEAN CELL HEMOGLOBIN 32.3 pg (27.9-34.1); MEAN CELL HEMOGLOBIN CONCENTR. 32.9 g/dL (32.4-36.7); MEAN PLATELET VOLUME 9.7 fL (8.7-11.7); PLATELET CLUMPS FLAG 10 (0-99); PLATELET COUNT 212 10^3/uL (150-400); RED BLOOD CELL COUNT 3.44 10^6/uL (4.40-6.38); RED CELL DISTRIBUTION WIDTH 12.9 % (11.5-15.2)
[2016-11-04 20:09] LABS: ALANINE AMINOTRANSFERASE 41 IU/L (21-72); ALBUMIN 2.3 g/dL (3.5-5.0); ALKALINE PHOSPHATASE 139 IU/L (38-126); ANION GAP 3 mEq/L (8-16); ASPARTATE AMINOTRANSFERASE 74 IU/L (17-59); BILIRUBIN,TOTAL 0.5 mg/dL (0.1-1.4); CALCIUM 7.9 mg/dL (8.5-10.4); CARBON DIOXIDE 26 mEq/l (22-31); CHLORIDE 108 mEq/L (97-110); CREATININE 0.7 mg/dL (0.7-1.3); GLOMERULAR FILTRATION RATE > 60; GLUCOSE 73 mg/dL (70-100); POTASSIUM 3.8 mEq/L (3.5-5.2); SODIUM 137 mEq/L (134-144); TOTAL PROTEIN 6.2 g/dL (6.3-8.2)
[2016-11-04] MEDS: SENNOSIDES/DOCUSATE SODIUM TAB PO SCH (20:28)
[2016-11-04] MEDS: PANTOPRAZOLE SODIUM 40 MG TAB PO SCH (20:29)
[2016-11-04] MEDS: HYDROmorphONE/DILAUDID 2 MG TAB PO PRN ×2 (20:29→23:09)
[2016-11-04] MEDS: GABAPENTIN 100 MG CAP PO SCH ×2 (20:50→21:01)
[2016-11-04] MEDS ORDERED: GABAPENTIN 100 MG CAP PO SCH (21:00)
[2016-11-05] MEDS: HYDROmorphONE/DILAUDID 2 MG TAB PO PRN ×5 (02:56→21:12)
[2016-11-05] MEDS: oxyCODONE IR 5 MG TAB PO PRN (05:56)
[2016-11-05] MEDS: CYCLOBENZAPRINE 10 MG TAB PO PRN ×2 (05:56→12:46)
[2016-11-05] MEDS: CHOLECALCIFEROL VIT D3 2,000 UNITS TAB/CAP PO SCH (08:23)
[2016-11-05] MEDS: ENOXAPARIN 40 MG/0.4 ML SYR SC SCH (08:23)
[2016-11-05] MEDS: POLYETHYLENE GLYCOL 3350 17 GM PKT PO PRN (08:25)
[2016-11-05] MEDS: SENNOSIDES/DOCUSATE SODIUM TAB PO SCH ×2 (08:25→21:11)
[2016-11-05] MEDS: GABAPENTIN 100 MG CAP PO SCH ×4 (08:26→21:12)
[2016-11-05] MEDS: PANTOPRAZOLE SODIUM 40 MG TAB PO SCH ×2 (08:27→21:11)
[2016-11-05] MEDS: MULTIVITAMINS 1 EACH TAB PO SCH (08:27)
--- NOTE | 2016-11-05 10:05 | GCON ---
[f rep st] CONSULTATION HOSPITAL COURSE, HISTORY, AND MAJOR MEDICAL FINDINGS: The patient is a 71-year- old gentleman, who on Sunday10/30/2016, underwent a C6-[address] Enciso. The patient's called our office on the morning of 11/04 stating that the patient was over-sedated at home, but still having extreme pain. Discussed with the possible outpatient measures. However, given his level of sedation, she brought him to the emergency room to be formally evaluated. He was also having gait weakness. The patient does have a history of gastric adenocarcinoma, who sees Dr. Connolly with Oncology he also recently underwent a bowel resection, and had started chemotherapy in July of 2016. This morning , upon seeing the patient, he states that his pain is still an 8 out of 10, and his pain radiates from the back of his neck across his shoulder blades. He tried modalities at home such as heat, which was mildly effective. Also, increased his pain medications as an outpatient from oxycodone 10 mg every 4 hours to 15 mg every 4 hours, and Valium every 6 hours, increased his gabapentin 600 mg b.i.d. He is having some mild dysphagia, but able to tolerate his food and oral pills. REVIEW OF SYSTEMS: Negative other than what is stated in the HPI. Please see for pertinent negatives and pertinent positives. PAST MEDICAL HISTORY: Coronary artery disease, with a history of DE in 2011. History of a gastric adenocarcinoma in 2011, status post resection, followed by small-bowel adenocarcinoma that was recently diagnosed in 2015, status post resection, and chemotherapy in July of 2016. History of celiac disease. History of portal vein thrombosis. History of C difficile colitis. History of hepatitis B. History of cervical stenosis with radiculopathy and myelopathy. PAST SURGICAL HISTORY: Significant for ACDF approximately 1 week ago at C6-7. History of cholecystectomy. A Billroth II gastric resection. Small-bowel resection. Hernia repair. Bilateral cataract surgery. SOCIAL HISTORY: Patient never smoked. He uses alcohol only rarely. He lives with his , who is present at his bedside today. Does not use any illicit drug use. FAMILY HISTORY: Lung cancer in his father and diabetes in his mother. ALLERGIES: Gluten, penicillins, and wheat. HOME MEDICATIONS: A multivitamin 1 p.o. daily, vitamin D3, Protonix 40 mg 1 p.o. twice daily, Valium 5 mg 1 p.o. q.6 hours p.r.n. muscle spasms, gabapentin 100 mg t.i.d., and oxycodone 15 mg q.4 hours p.r.n. pain. PHYSICAL EXAM: VITAL SIGNS: BP is 99/61, heart rate is 68, his temp is 36.6, and he is 98% on room air. GENERAL APPEARANCE: Patient is in no acute distress. He is alert and oriented x3, and sitting there comfortably with a pain of 8 out of 10. NEUROLOGIC: He has 5- out 5 diffusely in his bilateral upper extremities. Including his deltoids, triceps, biceps, wrist flexors, extensors, interossei, intrinsic maintenance planner. Iliopsoas, hamstrings, quadriceps, plantar flexion, dorsiflexion, and EHL. NECK: Soft without any edema, and his incision is clean, dry, and intact. DIAGNOSTIC REVIEW: Patient underwent cervical spine x-rays, which demonstrated intact hardware without any evidence of failure. ASSESSMENT AND PLAN: 1. The patient is a 71-year-old gentleman, who has a history of small bowel and gastric adenocarcinoma, who recently underwent a bowel resection, who also underwent an anterior cervical diskectomy and fusion by Dr. Enciso on 10/30/2016 , who is having severe pain with sedation and gait instability at home. 2. When the patient was admitted, his pain medications were changed in order to increase his pain management while limiting his sedation. The Valium was discontinued and Flexeril was written instead. The patient was also, instead of being written for 15 mg of oxycodone, was written for both Worden as well as Dilaudid. 3. Discussed with other non-narcotic analgesic modalities, which include a lidocaine patch, a soft collar for comfort, and heat as needed. 4. If this medication regimen is ineffective, we will go ahead and change his regimen while patient is in-house. This was discussed both with Dr. Brush and Dr. Enciso this morning. If there is any change in neurologic or motor exam, please notify Neurosurgery. We will have PT, OT, and TECHNICIAN AUTOMATIC see the patient while in-house as well. STAFF ADDENDUM seen and evaluated. Unfortunately, Mr. Ramirez seems to still have the same pain he was having before surgery. The etiology of this is somewhat unclear but agree with adjusting the medication regimen with the goal of decreasing the overall narcotic use. It is possible that the pain he is having is not spinal in origin. Will follow closely. His imaging shows excellent alignment with intact hardware. He was sleeping comfortably when I came by so that is a good sign. I spoke with his . /[id number]/MODL MTDD
--- NOTE | 2016-11-05 12:30 | HOSPPROG ---
Hospitalist Progress Note Assessment/Plan: 71-year-old male presenting with acute postoperative neck pain and subsequent somnolence in the setting of opiate and benzodiazepine pain medications. This is my first encounter with this patient. Chart reviewed. Plan: 1. Somnolence. Acute, most likely secondary to the side effects of oxycodone, Valium, gabapentin. -reduced dosage of gabapentin to 100 mg in the morning, 100 mg in the afternoon , 300 mg at night -discontinued the Valium -will change from oxycodone to Dilaudid given that he tolerated Dilaudid previously and has not experienced appreciable benefit from moderate strength oxycodone -initiate Dilaudid dose range 1-4 mg as needed, IV for breakthrough -initiate bowel regimen -PT, OT eval, patient may require [facility] facility moving forward 2. Neck pain. Most likely secondary to postoperative pain, adjust pain medications as outlined above -x-ray demonstrates a stable cervical spine positioning -appreciate neurosurgery consult 3. Gastric cancer with peritoneal carcinomatosis. - patient will most likely be pursuing additional chemotherapy and this is to be discussed with his primary oncologist this coming week -patient currently not demonstrating any signs of recurrent small bowel obstruction 4. Severe protein calorie malnutrition. most likely secondary to a combination of active malignancy as well as recent poor oral intake secondary to pain with swallowing -get dietary consult, supplements, improved pain control 5. Coronary artery disease. Chronic, continue home medications once reconciled, currently off of anti-platelet medication given his recent surgery Diet. Regular as tolerated Prophylaxis. High risk patient, Lovenox 40 Code. Full at present Disposition. Change to inpatient status. Will require further evaluation and medication adjustments in the hospital setting. Subjective: Tired. Pain 5/10 in neck. Feeling a bit better. Objective: Vital Signs Temp Pulse Resp BP Pulse Ox 36.7 C 72 14 102/72 93 11/05/16 11:37 11/05/16 11:37 11/05/16 11:37 11/05/16 11:37 11/05/16 11:37 Laboratory Results 11/04/16 19:38 11/04/16 19:38 11/04/16 11/05/16 11/06/16 05:59 05:59 05:59 Intake Total 1200 Output Total 300 1100 Balance 900 -1100 - Physical Exam Constitutional: no apparent distress, chronically ill appearing, cachectic Eyes: PERRL, anicteric sclera, EOMI Ears, Nose, Mouth, Throat: moist mucous membranes, hearing normal, ears appear normal Cardiovascular: No JVD, No tachycardia, No edema Respiratory: no respiratory distress, no rales or rhonchi, reduced air movement Gastrointestinal: No tenderness, No ascites, No guarding Skin: warm, normal color, No erythema Musculoskeletal: muscular tenderness, abnormal gait, generalized weakness Neurologic: AAOx3 Psychiatric: not anxious, thought process linear, poor judgement ICD10 Worksheet Patient Problems: Problems Problem Status Onset Acute cholecystitis Acute Fever Acute Jaundice Acute C. difficile diarrhea Acute 12/10/15 Small bowel obstruction due to adhesions Acute Abdominal pain Acute Acute abdominal pain Acute Small bowel obstruction Acute Gastric adenocarcinoma Acute Small bowel obstruction Acute Postoperative pain Acute
[2016-11-05] MEDS: LIDOCAINE 5% 1 EA PATCH TD SCH (14:23)
--- NOTE | 2016-11-05 17:26 | GCON ---
[f rep st] CONSULTATION NEW PATIENT CONSULTATION. DATE OF CONSULTATION: 11/05/2016 REASON FOR CONSULTATION: Known patient of Dr. Connolly with a history of gastric cancer and small-bow el cancer, recently discovered to have peritoneal carcinomatosis recent C6 through C7 ACDF by Dr. Ra harsha Conner. 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 He was diagnosed in 2011 with stage II gastric cancer which w as discovered as a result of GI bleeding. He received 2 weeks of radiation therapy, followed by quinton adjuvant FOLFOX and a total gastrectomy. In November 2015, he presented with a small-bowel obstruction a nd was found to have a well-differentiated adenocarcinoma of the ilium measuring 1.8 cm. Ultimately 1 node was found to be positive he received 2 additional cycles of FOLFOX chemotherapy completed on July 22, 2016. He began to develop some crampy abdominal pain and ultimately presented to the [facility] in late September 2016 with evidence of small bowel obstruction. No evidence of tumor seen. Dr. Cuevas took him to the OR October 11. It showed peritoneal carcinomatosis. Two biopsies were c onsistent with adenocarcinoma. He underwent bypass of the obstruction areas with primary anastomosi s. He had a slow postop recovery. He also developed severe neck pain and arm pain. MRI prior to t his discharge showed no metastatic disease but significant neural canal narrowing in the C-spine, co ngenital, as well as more significant narrowing of the C6-C7 nerve root consistent with his symptoms . He is status post C6 through C7 ACDF by Dr. Reed Conner and presented on this admission with acute n jose j pain. He also had somnolence in the setting of opiate and benzodiazepine pain medications. Neurosurgery is following. Imaging here has demonstrated a stable cervical spine. As far as his previous gastric cancer, small bowel cancer and recent peritoneal carcinomatosis, appa rently per patient and , studies have been sent to [place] and are pending at this time. They are going to meet with Dr. Connolly this week to discuss options going forward. Unfortunately, he would n ot make that appointment due to this admission. PAST MEDICAL HISTORY: Gastric cancer, small-bowel cancer as described above, iron deficiency anemia , history of WI in 2011, status post LAD stent, celiac disease, hepatitis B, hypercholesterolemia. FAMILY HISTORY: Noncontributory. MEDICATIONS: Current medications have been reviewed. IMAGING: Imaging from this hospitalization has been reviewed. REVIEW OF SYSTEMS: He reports weakness, neck pain in central spine and right shoulder. Reports elieser ng sleepy. He denies abdominal pain that is ongoing. He does have intermittent cramping abdominal pain. Denies any blood in his stool. Denies shortness of breath. He reports significant weakness and fatigue. PHYSICAL EXAMINATION: VITAL SIGNS: Today vital signs show blood pressure 102/72, pulse 72, respira tion rate 14, saturating 93% on room air. Temp 36.7. GENERAL: He is a chronically ill-appearing g entleman, cachectic. CARDIOVASCULAR: 2/6 systolic murmur. RESPIRATORY: No wheezes or rhonchi. G ASTROINTESTINAL: Positive bowel sounds. Previous surgical site clean, dry and intact. SKIN: Inta ct. MUSCULOSKELETAL: Mild tenderness to palpation over the posterior neck. NEUROLOGIC: 5/5 stren gth upper and lower extremities. LABORATORY DATA: CBC and CMP reviewed, largely unremarkable. Albumin is 2.3. ASSESSMENT AND PLAN: 71-year-old gentleman with history of gastric and small bowel adenocarcinoma w ith a recent discovery of peritoneal carcinomatosis. [facility] consultation on pathology is tk biggs at this time. The patient was admitted with acute neck pain, status post recent C-spine surgery with Dr. Reed Conner. He also had somnolence, given opioid and benzodiazepine use. As far as his neck pain, appreciate Neurosurgery consultation trying to control pain at this time. C-spine appears to have had no acute changes on imaging. As far as peritoneal carcinomatosis, will follow up with Dr. Connolly as an outpatient regarding new therapy. [facility] studies are pending and will discuss wi th Dr. Connolly thoughts about further chemotherapy or targeted therapy. The patient agrees with plan . We will notify Dr. Connolly of patient's admission. /[id number]/MODL
[2016-11-05] MEDS: ACETAMINOPHEN 325 MG TAB PO PRN (20:03)
[2016-11-05] MEDS: PATCH REMOVAL 1 EA PATCH TD SCH (21:15)
[2016-11-06] MEDS: HYDROmorphONE/DILAUDID 2 MG TAB PO PRN ×3 (05:23→20:04)
[2016-11-06] MEDS: LIDOCAINE 5% 1 EA PATCH TD SCH (09:37)
[2016-11-06] MEDS: CHOLECALCIFEROL VIT D3 2,000 UNITS TAB/CAP PO SCH (09:39)
[2016-11-06] MEDS: SENNOSIDES/DOCUSATE SODIUM TAB PO SCH ×2 (09:39→23:22)
[2016-11-06] MEDS: MULTIVITAMINS 1 EACH TAB PO SCH (09:39)
[2016-11-06] MEDS: GABAPENTIN 100 MG CAP PO SCH ×3 (09:40→20:05)
[2016-11-06] MEDS: ENOXAPARIN 40 MG/0.4 ML SYR SC SCH (09:40)
[2016-11-06] MEDS: PANTOPRAZOLE SODIUM 40 MG TAB PO SCH ×2 (09:40→20:05)
--- NOTE | 2016-11-06 12:06 | SOAPPROG ---
SOAP Progress Note Assessment/Plan: Assessment: 71 yo M sp C6/7 ACDF, readmitted with neck pain Plan: stable and doing well overall pain improved since admission PT/OT soft collar ok to discharge home from standpoint follow up with Dr Enciso in 1-2 weeks please call with neuro changes discussed with Dr Enciso 11/06/16 12:04 Subjective: neck pain improving, no arm pain, no weakness. Objective: Vital Signs Temp Pulse Resp BP Pulse Ox 36.3 C 72 16 104/75 93 11/06/16 07:36 11/06/16 07:36 11/06/16 07:36 11/06/16 07:36 11/06/16 07:36 11/05/16 11/06/16 11/07/16 05:59 05:59 05:59 Intake Total 1550 Output Total 1800 Balance -250 AAOx4, + FC PERRL, EOMI, no facial droop MAR x 4 + light touch C/D/I ICD10 Worksheet Patient Problems: Problems Problem Status Onset Postoperative pain Acute Abdominal pain Acute Acute abdominal pain Acute Acute cholecystitis Acute C. difficile diarrhea Acute 12/10/15 Fever Acute Gastric adenocarcinoma Acute Jaundice Acute Small bowel obstruction Acute Small bowel obstruction Acute Small bowel obstruction due to adhesions Acute
--- NOTE | 2016-11-06 12:32 | PDIAF ---
- Diagnosis Diagnosis: pain Code Status: Full Code - Medication Management Discharge Medications: Medications to Continue on Transfer Multivitamins [Multivitamin (*)] 1 each PO DAILY 09/19/15 [Last Taken 10/27/16] Cholecalciferol Vit D3 [Vitamin D3 2000 units tab (OTC)] 6,000 units PO DAILY [Last Taken 10/27/16] Pantoprazole Sodium [Protonix 40mg (*)] 40 mg PO BID 10/10/16 [Last Taken 07:30] Diazepam [Valium 5 MG (*)] 5 mg PO Q6H PRN 11/04/16 [Last Taken 11/04/16] Gabapentin [Neurontin 100 MG (*)] 200 mg PO TID 11/04/16 [Last Taken 11/04/16] oxyCODONE IR [Oxycodone Ir (*)] 15 mg PO Q4HRS PRN 11/04/16 [Last Taken 11/04/16 ] Discharge Medications: Refer to the Discharge Home Medication list for PRN reason. PICC Care - Routine: N/A - Orders Services needed: Physical Therapy, Occupational Therapy Diet Texture: Regular Texture Diet, Thin Liquids, Meds Whole w/Liquids - Follow Up Care Current Providers and Referrals: Bartolo Roberts MD [Primary Care Provider] - As per Instructions
--- NOTE | 2016-11-06 13:58 | PDIAF ---
- Diagnosis Diagnosis: pain Code Status: Full Code - Medication Management Discharge Medications: Medications to Continue on Transfer Multivitamins [Multivitamin (*)] 1 each PO DAILY 09/19/15 [Last Taken 10/27/16] Cholecalciferol Vit D3 [Vitamin D3 2000 units tab (OTC)] 6,000 units PO DAILY [Last Taken 10/27/16] Pantoprazole Sodium [Protonix 40mg (*)] 40 mg PO BID 10/10/16 [Last Taken 07:30] Gabapentin [Neurontin 100 MG (*)] 200 mg PO TID 11/04/16 [Last Taken 11/04/16] oxyCODONE IR [Oxycodone Ir (*)] 15 mg PO Q4HRS PRN 11/04/16 [Last Taken 11/04/16 ] Acetaminophen [Tylenol 325mg (*)] 650 mg PO Q4HRS PRN #0 tab 11/06/16 [Last Taken Unknown] Cyclobenzaprine [Flexeril 10 MG (*)] 10 mg PO TID PRN #20 tab 11/06/16 [Last Taken Unknown] HYDROmorphone HCL [Dilaudid 2 mg (*)] 1 - 4 mg PO Q4HRS PRN #30 tab 11/06/16 [ Last Taken Unknown] Lidocaine 5% [Lidoderm 5% Patch (*)] 1 ea TD DAILY #30 patch 11/06/16 [Last Taken Unknown] Patch Removal 1 ea TD DAILY21 #0 patch 11/06/16 [Last Taken Unknown] Polyethylene Glycol 3350 [Miralax 17 gm (*)] 17 gm PO DAILY PRN #0 pkt 11/06/16 [Last Taken Unknown] Sennosides/Docusate Sodium [Senokot-S] 1 - 2 tab PO BID #0 tab 11/06/16 [Last Taken Unknown] Discharge Medications: Refer to the Discharge Home Medication list for PRN reason. PICC Care - Routine: N/A - Orders Services needed: Physical Therapy, Occupational Therapy Diet Texture: Regular Texture Diet, Thin Liquids, Meds Whole w/Liquids - Follow Up Care Current Providers and Referrals: Bartolo Roberts MD [Primary Care Provider] - As per Instructions
--- NOTE | 2016-11-06 15:07 | HOSPPROG ---
Hospitalist Progress Note Assessment/Plan: 71-year-old male presenting with acute postoperative neck pain and subsequent somnolence in the setting of opiate and benzodiazepine pain medications. Reviewed with Dr Marija Connolly. Plan: 1. Somnolence. Acute, most likely secondary to the side effects of oxycodone, Valium, gabapentin. -discontinued the Valium -change from oxycodone to Dilaudid given that he tolerated Dilaudid previously and has not experienced appreciable benefit from moderate strength oxycodone -initiate Dilaudid dose range 1-4 mg as needed, IV for breakthrough -responding well to dilaudid -initiate bowel regimen -PT, OT eval, patient may require senior care facility moving forward 2. Neck pain. Most likely secondary to postoperative pain, adjust pain medications as outlined above -video swallow ordered and speech therapy eval -x-ray demonstrates a stable cervical spine positioning -appreciate neurosurgery consult 3. Gastric cancer with peritoneal carcinomatosis. - patient will most likely be pursuing additional chemotherapy and this is to be discussed with his primary oncologist this coming week -patient currently not demonstrating any signs of recurrent small bowel obstruction 4. Severe protein calorie malnutrition. most likely secondary to a combination of active malignancy as well as recent poor oral intake secondary to pain with swallowing -get dietary consult, supplements, improved pain control 5. Coronary artery disease. Chronic, continue home medications once reconciled, currently off of anti-platelet medication given his recent surgery 6. Plaque on tongue start nystatin Diet. Regular as tolerated Prophylaxis. High risk patient, Lovenox 40 Code. Full at present Disposition. Change to inpatient status. Will require further evaluation and medication adjustments in the hospital setting. Subjective: Still having some pain. Armstrong well this am. C/O swallowing pain. Objective: Vital Signs Temp Pulse Resp BP Pulse Ox 36.3 C 72 16 104/75 93 11/06/16 07:36 11/06/16 07:36 11/06/16 07:36 11/06/16 07:36 11/06/16 07:36 11/05/16 11/06/16 11/07/16 05:59 05:59 05:59 Intake Total 1550 Output Total 1800 Balance -250 - Physical Exam Constitutional: chronically ill appearing, uncomfortable, cachectic Eyes: PERRL, anicteric sclera, EOMI Ears, Nose, Mouth, Throat: moist mucous membranes, hearing normal, ears appear normal Cardiovascular: No JVD, No tachycardia, No edema Respiratory: no respiratory distress, no rales or rhonchi, reduced air movement Gastrointestinal: No tenderness, No ascites, No guarding Skin: warm, normal color, No erythema Musculoskeletal: normal joint ROM, no joint effusions, generalized weakness Neurologic: AAOx3 Psychiatric: not anxious, not encephalopathic, thought process linear, poor insight ICD10 Worksheet Patient Problems: Problems Problem Status Onset Acute cholecystitis Acute Fever Acute Jaundice Acute C. difficile diarrhea Acute 12/10/15 Small bowel obstruction due to adhesions Acute Abdominal pain Acute Acute abdominal pain Acute Small bowel obstruction Acute Gastric adenocarcinoma Acute Small bowel obstruction Acute Postoperative pain Acute
[2016-11-06] MEDS: NYSTATIN SUSP 500000 UNIT/5 ML UDCUP PO SCH ×2 (17:15→20:09)
[2016-11-06] MEDS: CYCLOBENZAPRINE 10 MG TAB PO PRN (17:19)
--- NOTE | 2016-11-06 19:07 | SOAPPROG ---
SOAP Progress Note Assessment/Plan: Assessment: - metastatic gastric/small bowel cancer with peritoneal carcinomatosis - patient has been declining clinically. He had an ACDF one week ago. Current admission is for severe R neck and shoulder pain. It is not exacerbated by a deep breath or movement, but is partially reproduced by pressure in the RUQ of his abdomen. Although this pain could be from a metastatic lesion in his neck and shoulder area or maybe post operative in nature, I think there is a real possibility that this is pain referred from his abdomen from his peritoneal carcinomatosis. A brief trial of Dexamethasone may be of benefit. Currently his pain relief is inadequate and he is having somnolence related to medication without adequate relief. We should know in 48 hours if this will be of benefit. If it is not, I'll D/C the dexamethasone. - Headache - could be related to metastatic disease/surgery/carcinomatous meningitis/meds - If we can get the patient a little more comfortable, he could benefit from an MRI of the brain while he is in the hospital - Aspiration - He is aspirating think liquids - appreciate speech therapy recommendations. Plan: - Dexamethasone 8mg IVP q12h X 4 doses - MRI brain when more comfortable Will continue to follow with you. Subjective: Sleepy but can't get comfortable. C/O headache. Objective: Vital Signs Temp Pulse Resp BP Pulse Ox 36.6 C 71 16 84/55 L 91 L 11/06/16 16:27 11/06/16 16:27 11/06/16 16:27 11/06/16 16:27 11/06/16 16:27 11/04/16 11/05/16 11/06/16 23:59 23:59 23:59 Intake Total 1550 500 Output Total 1000 1600 Balance 550 -1100 Physical Exam - Physical Exam General Appearance: moderate distress, cachetic Respiratory: No crackles, No rales, No rhonchi Cardiac/Chest: regular rate, rhythm Abdomen: other (R sholder hurts with RUQ pressure) Skin: pallor ICD10 Worksheet Patient Problems: Problems Problem Status Onset Postoperative pain Acute Abdominal pain Acute Acute abdominal pain Acute Acute cholecystitis Acute C. difficile diarrhea Acute 12/10/15 Fever Acute Gastric adenocarcinoma Acute Jaundice Acute Small bowel obstruction Acute Small bowel obstruction Acute Small bowel obstruction due to adhesions Acute
[2016-11-06] MEDS: DEXAMETHASONE 4 MG/ML VIAL IVP SCH (20:05)
[2016-11-06] MEDS: PATCH REMOVAL 1 EA PATCH TD SCH (20:21)
[2016-11-07] MEDS: HYDROmorphONE/DILAUDID 2 MG TAB PO PRN ×5 (00:42→19:08)
[2016-11-07] MEDS: CYCLOBENZAPRINE 10 MG TAB PO PRN (04:57)
[2016-11-07] MEDS: NYSTATIN SUSP 500000 UNIT/5 ML UDCUP PO SCH ×4 (04:58→20:51)
--- NOTE | 2016-11-07 08:25 | SOAPPROG ---
PILO Progress Note Assessment/Plan: Assessment: - metastatic gastric/small bowel cancer with peritoneal carcinomatosis - patient has been declining clinically. He had an ACDF one week ago. Current admission is for severe R neck and shoulder pain. His pain is between a 3 and a 5 today - this is an improvement. He thinks his pain is 'moving in the right direction. - Headache - could be related to metastatic disease/surgery/carcinomatous meningitis/meds - I'm going to order his MRI for tomorrow. - Aspiration - He is aspirating think liquids - appreciate speech therapy recommendations. Plan: - Dexamethasone 8mg IVP q12h X 4 doses - continue - MRI brain 11/08/16 Will continue to follow with you. Subjective: 'My pain is moving in the right direction.' Reports pain is now between a 3 and 5 on a scale of 1-10. Objective: Vital Signs Temp Pulse Resp BP Pulse Ox 36.4 C 79 15 97/80 L 97 11/07/16 07:48 11/07/16 07:48 11/07/16 07:48 11/07/16 07:48 11/07/16 07:48 11/05/16 11/06/16 11/07/16 23:59 23:59 23:59 Intake Total 1550 500 700 Output Total 1000 1600 800 Balance 550 -1100 -100 Physical Exam - Physical Exam General Appearance: mild distress Respiratory: No rales, No wheezing Cardiac/Chest: regular rate, rhythm Skin: pallor ICD10 Worksheet Patient Problems: Problems Problem Status Onset Postoperative pain Acute Abdominal pain Acute Acute abdominal pain Acute Acute cholecystitis Acute C. difficile diarrhea Acute 12/10/15 Fever Acute Gastric adenocarcinoma Acute Jaundice Acute Small bowel obstruction Acute Small bowel obstruction Acute Small bowel obstruction due to adhesions Acute
--- NOTE | 2016-11-07 08:39 | NEUSURGPN ---
Assessment/Plan: Assessment: 71 yo M sp C6/7 ACDF, readmitted with neck pain Plan: stable and doing well overall pain improved since admission, arm pain a 4/10 this am and shoulder pain a 7-8/ 10 at times but improved. PT/OT soft collar for comfort only ok to discharge home from NS standpoint follow up with Dr Enciso in 1-2 weeks please call with neuro changes discussed with Dr Enciso Subjective: Pain improved, medications are helping Objective: NAD A&Ox3 MAEx4 Incision c/d/i - Physician Discussed Patient with : [facility] Physical Exam - Vitals, I&O, Labs I and O 11/06/16 11/07/16 11/08/16 05:59 05:59 05:59 Intake Total 1550 1200 Output Total 1800 1600 Balance -250 -400 Intake: Oral (ml) 1550 1200 Output: Urine (ml) 1800 1600 Toilet 1800 1600 Other: Number of Voids Toilet 1 Vital Signs Temp Pulse Resp BP Pulse Ox 36.4 C 79 15 97/80 L 97 11/07/16 07:48 11/07/16 07:48 11/07/16 07:48 11/07/16 07:48 11/07/16 07:48 ICD10 Worksheet Patient Problems: Problems Problem Status Onset Postoperative pain Acute Abdominal pain Acute Acute abdominal pain Acute Acute cholecystitis Acute C. difficile diarrhea Acute 12/10/15 Fever Acute Gastric adenocarcinoma Acute Jaundice Acute Small bowel obstruction Acute Small bowel obstruction Acute Small bowel obstruction due to adhesions Acute
[2016-11-07] MEDS: GABAPENTIN 100 MG CAP PO SCH ×3 (08:44→20:50)
[2016-11-07] MEDS: CHOLECALCIFEROL VIT D3 2,000 UNITS TAB/CAP PO SCH (08:45)
[2016-11-07] MEDS: SENNOSIDES/DOCUSATE SODIUM TAB PO SCH ×2 (08:46→20:50)
[2016-11-07] MEDS: ACETAMINOPHEN 325 MG TAB PO PRN ×2 (08:46→20:51)
[2016-11-07] MEDS: PANTOPRAZOLE SODIUM 40 MG TAB PO SCH ×2 (08:46→20:51)
[2016-11-07] MEDS: MULTIVITAMINS 1 EACH TAB PO SCH (08:46)
[2016-11-07] MEDS: DEXAMETHASONE 4 MG/ML VIAL IVP SCH ×2 (08:47→20:51)
[2016-11-07] MEDS: LIDOCAINE 5% 1 EA PATCH TD SCH (08:47)
[2016-11-07] MEDS: POLYETHYLENE GLYCOL 3350 17 GM PKT PO PRN (08:48)
[2016-11-07] MEDS: ENOXAPARIN 40 MG/0.4 ML SYR SC SCH (08:48)
[2016-11-07] MEDS: oxyCODONE IR 5 MG TAB PO PRN ×2 (08:56→16:56)
[2016-11-07] MEDS ORDERED: LORazepam 2 MG/ML INJ IVP ONE (09:51)
[2016-11-07] MEDS ORDERED: LORazepam 2 MG/ML INJ ONE (12:10)
--- NOTE | 2016-11-07 12:14 | HOSPPROG ---
Hospitalist Progress Note Assessment/Plan: 71-year-old male presenting with acute postoperative neck pain and subsequent somnolence in the setting of opiate and benzodiazepine pain medications. Reviewed with Dr Cantu. D/W Dr Dodge. Plan: 1. Somnolence. - Better, most likely secondary to the side effects of oxycodone, Valium, gabapentin. -discontinued the Valium -change from oxycodone to Dilaudid given that he tolerated Dilaudid previously and has not experienced appreciable benefit from moderate strength oxycodone -initiate Dilaudid dose range 1-4 mg as needed, IV for breakthrough -responding well to dilaudid -initiate bowel regimen -PT, OT eval, patient may require [facility] facility moving forward 2. Neck pain. -Most likely secondary to postoperative pain, adjust pain medications as outlined above -feels much better today -video swallow and speech therapy eval done, diet adjusted -x-ray demonstrates a stable cervical spine positioning -appreciate neurosurgery consult 3. Gastric cancer with peritoneal carcinomatosis. - patient will most likely be pursuing additional chemotherapy and this is to be discussed with his primary oncologist this coming week -patient currently not demonstrating any signs of recurrent small bowel obstruction -transfer to the oncology floor -MRI of brain today to eval for possible mets 4. Severe protein calorie malnutrition. most likely secondary to a combination of active malignancy as well as recent poor oral intake secondary to pain with swallowing -get dietary consult, supplements, improved pain control 5. Coronary artery disease. Chronic, continue home medications once reconciled, currently off of anti-platelet medication given his recent surgery 6. Plaque on tongue start nystatin Diet. Regular as tolerated Prophylaxis. High risk patient, Lovenox 40 Code. Full at present Disposition. Change to inpatient status. Will require further evaluation and medication adjustments in the hospital setting. Subjective: Up in chair. Feeling better today. Swallow less painful. Objective: Vital Signs Temp Pulse Resp BP Pulse Ox 36.4 C 79 15 97/80 L 97 11/07/16 07:48 11/07/16 07:48 11/07/16 07:48 11/07/16 07:48 11/07/16 07:48 11/06/16 11/07/16 11/08/16 05:59 05:59 05:59 Intake Total 1550 1200 200 Output Total 1800 1600 Balance -250 -400 200 - Physical Exam Constitutional: not in pain, chronically ill appearing, cachectic Eyes: PERRL, anicteric sclera, EOMI Ears, Nose, Mouth, Throat: moist mucous membranes, hearing normal, ears appear normal Cardiovascular: No JVD, No tachycardia, No edema Respiratory: no respiratory distress, no rales or rhonchi, reduced air movement Gastrointestinal: tenderness, No ascites, No guarding Skin: warm, normal color, No erythema Musculoskeletal: no joint effusions, abnormal gait, generalized weakness Neurologic: AAOx3 Psychiatric: not anxious, not encephalopathic, thought process linear ICD10 Worksheet Patient Problems: Problems Problem Status Onset Acute cholecystitis Acute Fever Acute Jaundice Acute C. difficile diarrhea Acute 12/10/15 Small bowel obstruction due to adhesions Acute Abdominal pain Acute Acute abdominal pain Acute Small bowel obstruction Acute Gastric adenocarcinoma Acute Small bowel obstruction Acute Postoperative pain Acute
[2016-11-07] MEDS ORDERED: GADOBUTROL 10 ML VIAL IVP ONE (12:50)
[2016-11-07 20:33] LABS: % IMMATURE GRANULYOCYTES 0.4 % (0.0-1.1); ABSOLUTE IMMATURE GRANULOCYTES 0.05 10^3/uL (0.00-0.10); ADD DIFF? NO; ADD MORPH? NO; ADD SCAN? NO; ATYPICAL LYMPHOCYTE FLAG 50 (0-99); FRAGMENT RBC FLAG 0 (0-99); HEMATOCRIT 31.9 % (40.0-51.0); HEMOGLOBIN 10.6 g/dL (13.7-17.5); LEFT SHIFT FLG 30 (0-99); LIPEMIA HEMOLYSIS FLAG 80 (0-99); MEAN CELL HEMOGLOBIN 32.3 pg (27.9-34.1); MEAN CELL HEMOGLOBIN CONCENTR. 33.2 g/dL (32.4-36.7); MEAN CELL VOLUME 97.3 fL (81.5-99.8); MEAN PLATELET VOLUME 9.8 fL (8.7-11.7); PLATELET CLUMPS FLAG 0 (0-99); PLATELET COUNT 211 10^3/uL (150-400); RED BLOOD CELL COUNT 3.28 10^6/uL (4.40-6.38); RED CELL DISTRIBUTION WIDTH 12.5 % (11.5-15.2)
[2016-11-07 20:38] LABS: INR 1.35 (0.83-1.16); PROTIME(PATIENT) 16.7 SEC (12.0-15.0)
[2016-11-07] MEDS: PATCH REMOVAL 1 EA PATCH TD SCH (20:53)
[2016-11-08] MEDS: NYSTATIN SUSP 500000 UNIT/5 ML UDCUP PO SCH ×4 (06:23→20:26)
[2016-11-08 06:40] LABS: % IMMATURE GRANULYOCYTES 0.3 % (0.0-1.1); ABSOLUTE IMMATURE GRANULOCYTES 0.03 10^3/uL (0.00-0.10); ADD DIFF? NO; ADD MORPH? NO; ADD SCAN? NO; ATYPICAL LYMPHOCYTE FLAG 60 (0-99); FRAGMENT RBC FLAG 0 (0-99); HEMATOCRIT 34.2 % (40.0-51.0); HEMOGLOBIN 11.3 g/dL (13.7-17.5); LEFT SHIFT FLG 10 (0-99); LIPEMIA HEMOLYSIS FLAG 80 (0-99); MEAN CELL HEMOGLOBIN 32.1 pg (27.9-34.1); MEAN CELL VOLUME 97.2 fL (81.5-99.8); MEAN PLATELET VOLUME 9.8 fL (8.7-11.7); PLATELET CLUMPS FLAG 0 (0-99); PLATELET COUNT 220 10^3/uL (150-400); RED BLOOD CELL COUNT 3.52 10^6/uL (4.40-6.38); RED CELL DISTRIBUTION WIDTH 12.7 % (11.5-15.2)
[2016-11-08 07:14] LABS: ALANINE AMINOTRANSFERASE 36 IU/L (21-72); ALBUMIN 2.7 g/dL (3.5-5.0); ALKALINE PHOSPHATASE 130 IU/L (38-126); ANION GAP 7 mEq/L (8-16); ASPARTATE AMINOTRANSFERASE 66 IU/L (17-59); BILIRUBIN,TOTAL 0.6 mg/dL (0.1-1.4); CALCIUM 8.4 mg/dL (8.5-10.4); CARBON DIOXIDE 27 mEq/l (22-31); CHLORIDE 108 mEq/L (97-110); CREATININE 0.7 mg/dL (0.7-1.3); GLOMERULAR FILTRATION RATE > 60; GLUCOSE 110 mg/dL (70-100); POTASSIUM 3.8 mEq/L (3.5-5.2); SODIUM 142 mEq/L (134-144); TOTAL PROTEIN 6.7 g/dL (6.3-8.2)
--- NOTE | 2016-11-08 08:01 | SOAPPROG ---
SORONY Progress Note Assessment/Plan: Assessment: 71 yo M sp C6/7 ACDF, readmitted with neck pain now with bilateral subdural hematomas and leptomenigeal enhancement Plan: stable, neck pain and arm pain improved since admission. patient clinically looks good in regards to bilaeral subdural hematomas, will not plan on surgery unless condition changes. Will plan on repeat head CT w/o contrast in 1 week. Will defer leptomeningeal enhancement to Oncology. PT/OT soft collar follow up with Dr Enciso in 1 week please call with neuro changes patient seen by Dr Enciso this am 11/06/16 12:04 11/08/16 07:55 11/08/16 08:02 Subjective: no headaches, no N/V. Neck pain improving. No arm pain Objective: Vital Signs Temp Pulse Resp BP Pulse Ox 36.8 C 61 18 96/66 L 94 11/08/16 07:53 11/08/16 07:53 11/08/16 07:53 11/08/16 07:53 11/08/16 07:53 Laboratory Results 11/08/16 06:25 11/08/16 06:25 11/07/16 11/08/16 11/09/16 05:59 05:59 05:59 Intake Total 1200 1151 Output Total 1600 Balance -400 1151 PT 16.7 SEC (12.0-15.0) H 11/07/16 20:18 INR 1.35 (0.83-1.16) H 11/07/16 20:18 AAOX4, +FC PERRL, EOMI, no facial droop 5/5 + light touch C/D/I ICD10 Worksheet Patient Problems: Problems Problem Status Onset Postoperative pain Acute Abdominal pain Acute Acute abdominal pain Acute Acute cholecystitis Acute C. difficile diarrhea Acute 12/10/15 Fever Acute Gastric adenocarcinoma Acute Jaundice Acute Small bowel obstruction Acute Small bowel obstruction Acute Small bowel obstruction due to adhesions Acute
[2016-11-08] MEDS: GABAPENTIN 100 MG CAP PO SCH ×3 (09:44→20:26)
[2016-11-08] MEDS: CHOLECALCIFEROL VIT D3 2,000 UNITS TAB/CAP PO SCH (09:44)
[2016-11-08] MEDS: PANTOPRAZOLE SODIUM 40 MG TAB PO SCH ×2 (09:44→20:26)
[2016-11-08] MEDS: MULTIVITAMINS 1 EACH TAB PO SCH (09:44)
[2016-11-08] MEDS: LIDOCAINE 5% 1 EA PATCH TD SCH (09:45)
[2016-11-08] MEDS: DEXAMETHASONE 4 MG/ML VIAL IVP SCH (09:45)
[2016-11-08] MEDS: ENOXAPARIN 40 MG/0.4 ML SYR SC SCH (09:45)
[2016-11-08] MEDS: SENNOSIDES/DOCUSATE SODIUM TAB PO SCH ×2 (09:45→20:28)
[2016-11-08] MEDS: ACETAMINOPHEN 325 MG TAB PO PRN (10:09)
--- NOTE | 2016-11-08 14:13 | SOAPPROG ---
SOAP Progress Note Assessment/Plan: Assessment: - metastatic gastric/small bowel cancer with peritoneal carcinomatosis - patient has been declining clinically. He had an ACDF one week ago. Dexamethsone has improved his symptoms. 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 - Aspiration - He is aspirating think liquids - appreciate speech therapy recommendations. I had a long discussion with the patient and his regarding the extremely poor prognosis associated with the finding of carcinomatous meningitis, the lack of good treatment options, the likelihood of progressive accumulation of neurologic deficits, and the high likelihood of passing into a coma in the next few weeks. I recommended consultation with hospice. I discussed this with his primary oncologist, Dr. Marija Connolly. I spent approximately 45 minutes in data aquisition/MRI review/discussion with patient and /and care coordination with patient's nurse Karon/Dr. Dodge/ Dr. Connolly Plan: - continue dexamethasone - Hospice consultation - Probable discharge to home with hospice in the next 24-48 hours. Subjective: Less pain and more alert on dexamethasone. Objective: Vital Signs Temp Pulse Resp BP Pulse Ox 36.8 C 65 18 97/67 L 92 11/08/16 11:28 11/08/16 11:28 11/08/16 11:28 11/08/16 11:28 11/08/16 11:28 Laboratory Results 11/08/16 06:25 11/08/16 06:25 11/06/16 11/07/16 11/08/16 23:59 23:59 23:59 Intake Total 500 1731 120 Output Total 1600 800 Balance -1100 931 120 PT 16.7 SEC (12.0-15.0) H 11/07/16 20:18 INR 1.35 (0.83-1.16) H 11/07/16 20:18 Physical Exam - Physical Exam General Appearance: alert Neck: other (in a soft cervical collar) ICD10 Worksheet Patient Problems: Problems Problem Status Onset Postoperative pain Acute Abdominal pain Acute Acute abdominal pain Acute Acute cholecystitis Acute C. difficile diarrhea Acute 12/10/15 Fever Acute Gastric adenocarcinoma Acute Jaundice Acute Small bowel obstruction Acute Small bowel obstruction Acute Small bowel obstruction due to adhesions Acute
--- NOTE | 2016-11-08 15:27 | HOSPPROG ---
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 Now improved and back to baseline. # neck pain: likely multifactorial and given failure to improve s/p ACDF brain mri obtained showing findings as above. Pain currently much improved on steroids. # gastric adeno/sb adeno with peritoneal and leptomeningeal carcinomatosis: very poor prognosis, reviewed with patient and his that this likely means he has only months to live. Sxs improved with steroids. plan for hospice consult and dc home with f/u with hospice. # bilateral SDH: doing well despite this, in setting of meningeal spread of cancer as above and likely related to same rather than to trauma. Nsg involved. 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 Old records reviewed and summarized as above. Care plan reviewed with oncology as above. Further hx obtained from patients present at bedside. Subjective: no significant overnight events, patient has had long discussion with Dr. Cantu, understands that he has a poor prognosis and is ready to consider home with hospice Objective: Vital Signs Temp Pulse Resp BP Pulse Ox 36.8 C 65 18 97/67 L 92 11/08/16 11:28 11/08/16 11:28 11/08/16 11:28 11/08/16 11:28 11/08/16 11:28 Laboratory Results 11/08/16 06:25 11/08/16 06:25 11/07/16 11/08/16 11/09/16 05:59 05:59 05:59 Intake Total 1200 1151 Output Total 1600 Balance -400 1151 PT 16.7 SEC (12.0-15.0) H 11/07/16 20:18 INR 1.35 (0.83-1.16) H 11/07/16 20:18 chronically ill appearing, nad anicteric mmm, soft cervical collar in place cta b soft nt nd no cce warm dry well perfused oriented appropriate pleasant - Time Spent With Patient Time Spent with Patient: greater than 35 minutes Time Spent with Patient: Greater than 35 minutes spent on this patients care, greater than 50% of time spent counseling, educating, and coordinating care regarding the above mentioned plan. ICD10 Worksheet Patient Problems: Problems Problem Status Onset Acute cholecystitis Acute Fever Acute Jaundice Acute C. difficile diarrhea Acute 12/10/15 Small bowel obstruction due to adhesions Acute Abdominal pain Acute Acute abdominal pain Acute Small bowel obstruction Acute Gastric adenocarcinoma Acute Small bowel obstruction Acute Postoperative pain Acute
[2016-11-08] MEDS: oxyCODONE IR 5 MG TAB PO PRN (15:52)
[2016-11-08] MEDS: DEXAMETHASONE 4 MG TAB PO SCH (18:33)
[2016-11-08] MEDS: PATCH REMOVAL 1 EA PATCH TD SCH (20:28)
[2016-11-09] MEDS: ONDANSETRON 4 MG/2 ML VIAL IVP PRN ×2 (00:25→06:23)
[2016-11-09] MEDS: DEXAMETHASONE 4 MG TAB PO SCH ×3 (00:33→12:29)
[2016-11-09] MEDS: NYSTATIN SUSP 500000 UNIT/5 ML UDCUP PO SCH ×2 (06:23→12:29)
--- NOTE | 2016-11-09 07:37 | SOAPPROG ---
[facility] Progress Note Assessment/Plan: Assessment: 71 yo M sp C6/7 ACDF, readmitted with neck pain now with bilateral subdural hematomas and leptomenigeal enhancement Plan: stable, neck pain and arm pain improved since admission. patient clinically looks good in regards to bilaeral subdural hematomas, new leptomeningeal disease covered by Oncology with poor prognosis. Patient to meet with hospice and likely dc home with hospice in the next day or so. Will sign off since patient is moving towards hospice care. He has the option of follow up with Dr Enciso if he would like but he does not need to. can dc soft collar Neurosurgery will sign off, please call with any questions/concerns Discussed with Dr Enciso this am 11/06/16 12:04 11/08/16 07:55 11/08/16 08:02 11/09/16 07:33 Subjective: no headaches but some nausea this am, no weakness. neck and arm pain better Objective: Vital Signs Temp Pulse Resp BP Pulse Ox 36.3 C 62 16 131/80 H 94 11/09/16 04:00 11/09/16 04:00 11/09/16 04:00 11/09/16 04:00 11/09/16 04:00 Laboratory Results 11/08/16 06:25 11/08/16 06:25 11/08/16 11/09/16 11/10/16 05:59 05:59 05:59 Intake Total 1151 920 Balance 1151 920 PT 16.7 SEC (12.0-15.0) H 11/07/16 20:18 INR 1.35 (0.83-1.16) H 11/07/16 20:18 Awake, alert PERRL, no facial droop, EOMI MAR x 4 + light touch C/D/I ICD10 Worksheet Patient Problems: Problems Problem Status Onset Postoperative pain Acute Abdominal pain Acute Acute abdominal pain Acute Acute cholecystitis Acute C. difficile diarrhea Acute 12/10/15 Fever Acute Gastric adenocarcinoma Acute Jaundice Acute Small bowel obstruction Acute Small bowel obstruction Acute Small bowel obstruction due to adhesions Acute
[2016-11-09 09:09] VITALS: BP 108/68; PULSE 61; RESP 17; TEMP 97.8; O2SAT 91
[2016-11-09] MEDS: oxyCODONE IR 5 MG TAB PO PRN (09:31)
[2016-11-09] MEDS: PANTOPRAZOLE SODIUM 40 MG TAB PO SCH (09:32)
[2016-11-09] MEDS: GABAPENTIN 100 MG CAP PO SCH (09:32)
[2016-11-09] MEDS: SENNOSIDES/DOCUSATE SODIUM TAB PO SCH (09:34)
[2016-11-09] MEDS: CHOLECALCIFEROL VIT D3 2,000 UNITS TAB/CAP PO SCH (09:34)
[2016-11-09] MEDS: MULTIVITAMINS 1 EACH TAB PO SCH (09:34)
[2016-11-09] MEDS: LIDOCAINE 5% 1 EA PATCH TD SCH (10:34)
[2016-11-09] MEDS: ENOXAPARIN 40 MG/0.4 ML SYR SC SCH (10:34)
--- NOTE | 2016-11-09 10:35 | PDDCSUM ---
Discharge Summary Discharge Summary: Dates of service 11/04-11/09/16 Consultations: neurosurgery, oncology Procedures: C6-7 ACDF, brain MRI, videofluoro swallow eval Hospital course by problem: # acute encephalopathy: multifactorial and related likely to post op delerium and pain meds as well as to new findings of leptomeningeal carcinomatosis and bilateral SDH. Resolved. # neck pain: likely multifactorial and given failure to improve s/p ACDF brain mri obtained showing findings as above. Pain currently much improved on steroids. Will dc home with additional opiates for pain control. # gastric adeno/sb adeno with peritoneal and leptomeningeal carcinomatosis: very poor prognosis, reviewed with patient and his that this likely means he has only months to live. Sxs improved with steroids. Hospice consulted and patient and his do not feel ready for hospice at this point. # bilateral SDH: doing well despite this, in setting of meningeal spread of cancer as above and likely related to same, no intervention required. # aspiration: sp acdf and related to same, doing well with dysphagia 3 and nectar thick liquids. 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 Connolly > 35 minutes spent in dc of patient more than half in coordination of care and counseling of patient and his family regarding f/u care plans
--- NOTE | 2016-11-09 10:45 | PDIAF ---
- Diagnosis Diagnosis: metastatic gastric/sb cancer Code Status: Full Code - Medication Management Discharge Medications: Medications to Continue on Transfer Multivitamins [Multivitamin (*)] 1 each PO DAILY 09/19/15 [Last Taken 10/27/16] Cholecalciferol Vit D3 [Vitamin D3 2000 units tab (OTC)] 6,000 units PO DAILY [Last Taken 10/27/16] Pantoprazole Sodium [Protonix 40mg (*)] 40 mg PO BID 10/10/16 [Last Taken 07:30] Gabapentin [Neurontin 100 MG (*)] 200 mg PO TID 11/04/16 [Last Taken 11/04/16] oxyCODONE IR [Oxycodone Ir (*)] 15 mg PO Q4HRS PRN 11/04/16 [Last Taken 11/04/16 ] Polyethylene Glycol 3350 [Miralax 17 gm (*)] 17 gm PO DAILY PRN #0 pkt 11/06/16 [Last Taken Unknown] Sennosides/Docusate Sodium [Senokot-S] 1 - 2 tab PO BID #0 tab 11/06/16 [Last Taken Unknown] Cyclobenzaprine [Flexeril 10 MG (*)] 10 mg PO TID #60 tab 11/09/16 [Last Taken Unknown] Dexamethasone 4 mg PO Q6H #60 tablet 11/09/16 [Last Taken Unknown] HYDROmorphone HCL [Dilaudid 2 mg (*)] 1 - 4 mg PO Q4H PRN #60 tab 11/09/16 [ Last Taken Unknown] Lidocaine 5% [Lidoderm 5% Patch (*)] 1 ea TD DAILY #30 patch 11/09/16 [Last Taken Unknown] Discharge Medications: Refer to the Discharge Home Medication list for PRN reason. PICC Care - Routine: N/A - Orders Services needed: Registered Nurse, Certified Billet Recorder, Physical Therapy, Occupational Therapy, Speech Language Pathologist Diet Recommendation: no restrictions on diet Diet Texture: Dysphagia 3 - Advanced - Moist, Bite-Size, [place] Thick Liquids, Meds Whole in Puree Wound Care Instructions: routine care surgical incision site Activity/Weight Bearing Restrictions: as tolerated - Follow Up Care Current Providers and Referrals: Marija Connolly MD [Medical Doctor] - Bartolo Roberts MD [Primary Care Provider] - As per Instructions
--- NOTE | 2016-11-09 11:04 | SOAPPROG ---
[facility] Progress Note Assessment/Plan: Assessment: - metastatic gastric/small bowel cancer with peritoneal carcinomatosis - patient has been declining clinically. He had an ACDF one week ago. Dexamethsone has improved his symptoms. 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 - Aspiration - He is aspirating think liquids - appreciate speech therapy recommendations. His symptoms have improved in general. He is ready to go home. He has not yet decided to sign up for hospice. Plan: - continue dexamethasone and other meds - F/U with me in the office in 1-2 weeks (I'll be covering him for the next [address] Connolly's absence) - Discharge today. Subjective: Feels ready to go home. Objective: Vital Signs Temp Pulse Resp BP Pulse Ox 36.6 C 61 17 108/68 91 L 11/09/16 09:00 11/09/16 09:00 11/09/16 09:00 11/09/16 09:00 11/09/16 09:00 Laboratory Results 11/08/16 06:25 11/08/16 06:25 11/07/16 11/08/16 11/09/16 23:59 23:59 23:59 Intake Total 1731 670 370 Output Total 800 Balance 931 670 370 PT 16.7 SEC (12.0-15.0) H 11/07/16 20:18 INR 1.35 (0.83-1.16) H 11/07/16 20:18 Physical Exam - Physical Exam General Appearance: mild distress (mostly as it relates to his R shoulder pain) Neuro/Psych: alert, normal mood/affect ICD10 Worksheet Patient Problems: Problems Problem Status Onset Postoperative pain Acute Abdominal pain Acute Acute abdominal pain Acute Acute cholecystitis Acute C. difficile diarrhea Acute 12/10/15 Fever Acute Gastric adenocarcinoma Acute Jaundice Acute Small bowel obstruction Acute Small bowel obstruction Acute Small bowel obstruction due to adhesions Acute
== END 2016-11-09 15:24 | disposition home health service (06) | DRG 54 ==
LOC: F3N 19:45 → OBSVTOIN 11-05 12:31 → F1N 11-07 13:20
PROVIDERS: ADMIT Internal Medicine; ATTEND Internal Medicine
DX: C70.1 Malignant neoplasm of spinal meninges (principal); E43 Unspecified severe protein-calorie malnutrition; G93.49 Other encephalopathy; I62.00 Nontraumatic subdural hemorrhage, unspecified; C78.6 Secondary malignant neoplasm of retroperitoneum and peritoneum; B37.0 Candidal stomatitis; Z68.1 Body mass index [BMI] 19.9 or less, adult; G89.18 Other acute postprocedural pain; M54.2 Cervicalgia; R13.10 Dysphagia, unspecified; K21.9 Gastro-esophageal reflux disease without esophagitis; I25.10 Atherosclerotic heart disease of native coronary artery without angina pectoris; Z88.0 Allergy status to penicillin; Z98.1 Arthrodesis status; Z85.00 Personal history of malignant neoplasm of unspecified digestive organ
CPT/HCPCS: 92526-GN; 92610-GN; 92611-GN; 97110-GP; 97116-GP; 97161-GP; 97165-GO; 97535-GO; A9585; G0378; G8978-GP-CI; G8978-GP-CJ; G8979-GP-CI; G8980-GP-CI; G8987-GO-CI; G8988-GO-CI; G8996-GN-CI; G8996-GN-CJ; G8997-GN-CH; G8997-GN-CI; G8997-GN-CJ; G8998-GN-CJ; J1100; J1170; J1642; J1650; J2060; J2405

== ENCOUNTER → 2016-12-01 | Outpatient (CLI) | payer OTHER | LOC: FIMAGING 12:10 | PROVIDERS: ATTEND Physician Assistant | DX: Z09 Encounter for follow-up examination after completed treatment for conditions other than malignant neoplasm (principal); Z98.1 Arthrodesis status ==